=== PATIENT | male | born 1970 | race Caucasian/White ===

== ENCOUNTER → 2020-02-17 09:16 | Outpatient (CLI) | payer BC, SELFPAY ==
--- NOTE | 2020-02-17 09:30 | RAD_ITS ---
PROCEDURE: Fluoroscopic guided shoulder Injection DATE: February 17, 2020. INDICATION: Male, 49 years old. Chronic shoulder pain. PHYSICIAN: Alec Montez M.D. MEDICATIONS: 12 mg of betamethasone and 4 cc of 1% lidocaine. 2% Lidocaine administered subcutaneously for local anesthesia. ACCESS SITE: Right shoulder. NEEDLE: 22-gauge spinal needle. FLUOROSCOPY TIME (if supplied): (1:24) minutes/seconds FINDINGS: The risks, benefits, and alternatives to the procedure were explained to the patient. The specific risks of bleeding, infection, and neurovascular injury were detailed and accepted. Witnessed informed consent was obtained. A 22-gauge spinal needle was positioned under radiographic fluoroscopic localization. Approximately 2 cc of Isovue-300 instilled for localization purposes. Medication was then injected. The patient tolerated the procedure well without any immediate complications. The patient was placed supine with head elevated and returned to the floor in stable condition. RAD/Inj/Asp Weston Jt Should/Hip/Knee IMPRESSION: 1. Successful fluoroscopic guided right shoulder injection. Electronically Signed: Alec Montez, at 10:55 EDT , Service support ,
--- NOTE | 2020-02-17 09:30 | RAD_ITS ---
PROCEDURE: Fluoroscopic guided shoulder Injection DATE: February 17, 2020. INDICATION: Male, 49 years old. Chronic shoulder pain. PHYSICIAN: Alec Montez M.D. MEDICATIONS: 12 mg of betamethasone and 4 cc of 1% lidocaine. 2% lidocaine administered subcutaneously for local anesthesia. ACCESS SITE: Left shoulder. NEEDLE: 22-gauge spinal needle. FLUOROSCOPY TIME (if supplied): (0:53) minutes/seconds FINDINGS: The risks, benefits, and alternatives to the procedure were explained to the patient. The specific risks of bleeding, infection, and neurovascular injury were detailed and accepted. Witnessed informed consent was obtained. A 22-gauge spinal needle was positioned under radiographic fluoroscopic localization. Approximately 2 cc of Isovue-300 instilled for localization purposes. Medication was then injected. The patient tolerated the procedure well without any immediate complications. Incidental note is made of calcific tendinitis. RAD/Inj/Asp Weston Jt Should/Hip/Knee IMPRESSION: 1. Successful fluoroscopic guided left shoulder injection. Electronically Signed: Alec Montez, at 10:54 EDT , Service support ,
== END ==
PROVIDERS: Referring Provider Specialist; Visit Provider Specialist
DX: M19.011 Primary osteoarthritis, right shoulder (principal); M19.012 Primary osteoarthritis, left shoulder
CPT/HCPCS: 20610; 77002; Q9967; J0702

== ENCOUNTER 2020-10-19 09:30 | Outpatient (RCR) | payer OTHER, SELFPAY ==
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
--- NOTE | 2020-10-19 15:09 | HP.PTDCSUM ---
It has been my pleasure to treat BARBIE ROBERTSON referred by Dr. Asher Barger DO, with the diagnosis of ANA CRISTINA GLENOHUMERAL DJD for a total of 8 visit(s). Discharge Date: 10/19/20 Please see the following information for a summary of their discharge status. Subjective: PATIENT REPORTS HIS SHOULDERS ARE GETTING A LITTLE BIT BETTER. LESS PAIN AND BETTER FLEXABILITY. STATES HE WOULD LIKE TO CONTINUE AT HOME AT THIS POINT BECAUSE IT IS A LONG DRIVE HERE TO PT AND HE WILL CONTINUE ON HIS OWN. GETTING THE WORST PAIN AT NIGHT. R SHLD Pain Intensity (Out of 10): 0 L SHLD Pain Intensity (Out of 10): 0 % Improvement: 10 Objective/Function: PATIENT WAS SEEN TODAY FOR RE-ASSESSMENT OF PROGRESS TOWARD THE SET PT GOALS AND THE NEED FOR FURTHER PHYSICAL THERAPY VS READINESS FOR DISCHARGE. PATIENT IS INDEP WITH A HEP AND MAKING SLOW PROGRESS TOWARD ALL PT GOALS. 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 UPON EXAM TODAY: Motor deficit: 5/5 ANA CRISTINA ELBOW STRENGTH. ANA CRISTINA SHLD WEAKNESS: MMT: GROSSLY FLEX 4-/5, ABD 3+/5, ER 3+/5, IR 4/5. Sensory deficit: ANA CRISTINA UE LIGHT TOUCH SENSATION INTACT AND SYMMETRICAL. ROM deficit: R SHLD: FLEX 163 DEG, 168 DEG, ER 68 DEG, IR 38 DEG. L SHLD: FLEX 165 DEG, 175 DEG, ER 65 DEG, IR 43 DEG. (IR/ER MEASURED IN SUPINE WITH 70 DEG OF ABD IN BOTH ARMS). ANA CRISTINA ELBOW, FOREARM, WRIST AND HAND ROM WFL. PATIENT C/O SHLD PAIN ANA CRISTINA WITH SHLD ROM TESTING ALL PLANES AT THE END OF THE AVAILABLE RANGE R SHLD > LEFT. Dural Signs: NEGATIVE ANA CRISTINA UE'S. Postural strength: FAIR. Palpation: NO ACUTE NECK OR ANA CRISTINA SHLD TENDERNESS WITH PALPATION. Goal 1:: PATIENT WILL MAINTAIN PROPER POSTURE THROUGHOUT TREATMENT SESSIONS TO DEMONSTRATE IMPROVED SCAPULAR STABILIZATION Goal Progress: Progressing Goal 2:: PATIENT WILL BE INDEP WITH HEP AND PROGRESSION. Goal Progress: Progressing Goal 3:: PATIENT WILL REPORT ONLY WAKING UP ONCE DURING THE NIGHT DUE TO SHLD PAIN TO EASE ADL'S. Goal Progress: Progressing Plan: D/C TO INDEP HEP AT PATIENTS REQUEST. RECOMMENDED FOLLOW UP WITH DR. BARGER DUE TO ONGOING PAIN, WEAKNESS AND TIGHTNESS. If there are questions or concerns regarding this patient's physical therapy, please feel free to call me at [phone]. Thank you for the referral of this patient. Sincerely, Krystle Ansari PT, Cert MDT
== END 2020-10-19 19:00 | disposition home or self-care (01) ==
LOC: PT 09:30
PROVIDERS: Referring Provider Orthopaedic Surgery; Visit Provider Orthopaedic Surgery
DX: M19.011 Primary osteoarthritis, right shoulder (principal); M19.012 Primary osteoarthritis, left shoulder
CPT/HCPCS: 97014; 97110; 97140; 97162; 97164; 97530; G0283

== ENCOUNTER → 2022-03-14 | Outpatient (CLI) | payer OTHER, SELFPAY ==
--- NOTE | 2022-03-14 16:47 | CT_ITS ---
CT of the right shoulder without contrast INDICATION: Shoulder pain. TECHNIQUE: Multiple thin section axial CT images the right shoulder were obtained without the administration of intravenous contrast and filmed in soft tissue and bone windows. Furthermore, multiple sagittal and coronal reconstructions were performed. Dose limiting techniques were utilized. FINDINGS: No abnormal soft tissue mass, lymphadenopathy, fluid collection. No acute fracture or dislocation. No lytic or blastic lesions. The mild acromioclavicular joint arthrosis with capsulitis. Anterolateral downsloping acromion produces lateral outlet stenosis. Severe glenohumeral joint arthrosis with osteophyte formation and severe joint space narrowing. 4 cm oval collection of calcified bodies and fluid in the subscapular recess. CT/Extremity Upper without Contra IMPRESSION: Severe glenohumeral joint arthrosis per Electronically Signed: Naresh Real MD at 10:09 EDT ,
== END | disposition home or self-care (01) ==
LOC: CT 16:46
PROVIDERS: Referring Provider Specialist; Visit Provider Specialist
DX: M19.011 Primary osteoarthritis, right shoulder (principal); M25.511 Pain in right shoulder
CPT/HCPCS: 73200

== ENCOUNTER → 2022-04-18 | Outpatient (CLI) | payer OTHER, SELFPAY ==
[2022-04-18 09:37] LABS: ALB/GLOB Ratio 1.1 RATIO (0.9-2.4); AST(SGOT) 27 U/L (15-37); Alanine Aminotransfer ALT/SGPT 59 U/L (16-61); Albumin, Serum 3.9 g/dL (3.2-5.0); Alkaline Phosphatase 53 U/L (45-117); Anion Gap 4 (5-15); BUN 20 mg/dL (7-18); BUN/Creat Ratio 20.9 RATIO (10-20); Chloride 103 mmol/L (98-107); Cholesterol 242 mg/dL (200); Creatinine, Serum 0.96 mg/dL (0.70-1.30); EST Glomerular Filtration Rate 88 mL/min (>60); Est Glom Filt Rate - Afr Amer 107 mL/min (>60); Globulin 3.6 g/dL (2.2-4.2); Glucose 99 mg/dL (74-106); High Density Lipoprotein 48 mg/dL; Potassium 4.1 mmol/L (3.5-5.1); Protein, Total 7.5 g/dL (6.4-8.2); Sodium Level 138 mmol/L (136-145); Triglycerides 159 mg/dL; Very Low Density Lipoprotein 32 mg/dL (5-40)
== END | disposition home or self-care (01) ==
LOC: LAB 08:13
PROVIDERS: PCP Internal Medicine; Referring Provider Internal Medicine; Visit Provider Internal Medicine
DX: Z00.00 Encounter for general adult medical examination without abnormal findings (principal); E87.2 Acidosis; Z13.6 Encounter for screening for cardiovascular disorders
CPT/HCPCS: 36415; 80053; 80061

== ENCOUNTER → 2022-06-18 | Outpatient (CLI) | payer OTHER, SELFPAY ==
--- NOTE | 2022-06-18 15:08 | VDLE_ITS ---
Reason For Study: Pain RIGHT LEFT CFV is compressible, spontaneous, phasic, GSV is normal. competent and demonstrates normal CFV is compressible, spontaneous, phasic, augmentation. competent, and demonstrates normal Procedure augmentation. This is a venous duplex using B-mode, color FV is compressible, spontaneous, phasic, flow and spectral Doppler. competent and demonstrates normal Exam performed in department. augmentation. A preliminary report was called and/or faxed POP V is compressible, spontaneous, phasic, to PCP: Shefali MOONEY. competent and demonstrates normal augmentation. T/P Trunk is compressible. LT PerV is compressible. PTV is partially compressible with bright intraluminal echoes, blood flow noted. Acute deep vein thrombosis is noted in the left SoleusV. VL/Venous Duplex US, Unilateral Interpretation Summary Acute deep vein thrombosis is noted in the left soleus vein. Chronic deep vein thrombosis is noted in the left posterior tibial vein. Ordering Physician: Franck Pizano Referring Physician: Joana Yanes Performed By: Fanny Mireles RVT
== END | disposition home or self-care (01) ==
LOC: CVS 15:06
PROVIDERS: PCP Internal Medicine; Referring Provider Specialist; Visit Provider Specialist
DX: I82.462 Acute embolism and thrombosis of left calf muscular vein (principal); I82.542 Chronic embolism and thrombosis of left tibial vein
CPT/HCPCS: 93971

== ENCOUNTER → 2022-08-21 | Outpatient (CLI) | payer OTHER, SELFPAY ==
--- NOTE | 2022-08-21 08:01 | VDLE_ITS ---
Reason For Study: pain RIGHT LEFT CFV is compressible, spontaneous, phasic, GSV is normal. competent and demonstrates normal CFV is compressible, spontaneous, phasic, augmentation. competent, and demonstrates normal Procedure augmentation. This is a venous duplex using B-mode, color FV is compressible, spontaneous, phasic, flow and spectral Doppler. competent and demonstrates normal Exam performed in department. augmentation. The exam was diagnostic. POP V is compressible, spontaneous, phasic, competent and demonstrates normal augmentation. T/P Trunk is compressible. PTV is compressible. LT PerV is compressible. Soleus V is mostly compressible with bright intraluminal echoes. Improvement from previous study done 06/18/22. VL/Venous Duplex US, Unilateral Interpretation Summary Chronic deep vein thrombosis is noted in the left soleus vein. Improved from prior study Ordering Physician: Joana Yanes Performed By: Rigoberto Cooper RVT
== END | disposition home or self-care (01) ==
LOC: CVS 07:58
PROVIDERS: PCP Internal Medicine; Referring Provider Internal Medicine; Visit Provider Internal Medicine
DX: I82.402 Acute embolism and thrombosis of unspecified deep veins of left lower extremity (principal); R10.32 Left lower quadrant pain; M79.605 Pain in left leg
CPT/HCPCS: 93971

== ENCOUNTER → 2022-09-20 | Outpatient (CLI) | payer OTHER, SELFPAY ==
--- NOTE | 2022-09-20 11:30 | RAD_ITS ---
EXAM: XR LEFT HIP WITH PELVIS WHEN PERFORMED, 2 OR 3 VIEWS CLINICAL INDICATION: groin pain TECHNIQUE: Two or three views of the left hip with pelvis when performed. This report was created using [employer] report generation technology. COMPARISON: None. FINDINGS: BONES/JOINTS: No acute abnormality. SOFT TISSUES: Calcification along the left inguinal canal suggestive of vas deferens calcification. No soft tissue swelling or gas. RAD/HIP, UNI W/ Pelvis 2-3 Views IMPRESSION: No evidence of displaced pelvic or hip fracture. Electronically Signed: Asher Mckeon MD at 11:39 EST ,
== END | disposition home or self-care (01) ==
LOC: RAD 11:24
PROVIDERS: PCP Internal Medicine; Referring Provider Internal Medicine; Visit Provider Internal Medicine
DX: R10.32 Left lower quadrant pain (principal)
CPT/HCPCS: 73502; J7050; A4216

== ENCOUNTER → 2023-11-10 | Outpatient (CLI) | payer OTHER, SELFPAY | END | disposition home or self-care (01) | PROVIDERS: PCP Internal Medicine; Referring Provider Internal Medicine; Visit Provider Internal Medicine | DX: Z00.00 Encounter for general adult medical examination without abnormal findings (principal) ==

== ENCOUNTER → 2023-11-10 | Outpatient (CLI) | payer OTHER, SELFPAY ==
--- NOTE | 2023-11-10 15:05 | RAD_ITS ---
STUDY: X-RAY CHEST REASON FOR EXAM: Male, 53 years old. chest congestion TECHNIQUE: PA and lateral views of the chest. COMPARISON: 01/15/2016 FINDINGS: The lungs are clear and expanded. There is no demonstrated pleural abnormality. Normal size heart. Normal mediastinum and leilani. Normal visualized pulmonary arteries. Normal visualized aortic arch and descending thoracic aorta. Normal visualized thoracic spine. Status post right shoulder hemiarthroplasty. There is no demonstrated abnormality of the visualized soft tissue structures of the upper abdomen. RAD/Chest PA and Lateral IMPRESSION: Normal x-ray examination of the chest. Electronically Signed: Naresh Real MD at 22:24 EDT ,
== END | disposition home or self-care (01) ==
LOC: RAD 15:03
PROVIDERS: PCP Internal Medicine; Referring Provider Internal Medicine; Visit Provider Internal Medicine
DX: R09.89 Other specified symptoms and signs involving the circulatory and respiratory systems (principal)
CPT/HCPCS: 71046

== ENCOUNTER → 2024-02-03 | Outpatient (CLI) | payer OTHER, SELFPAY ==
--- NOTE | 2024-02-03 16:40 | MRI_ITS ---
STUDY: MRI LUMBAR SPINE WITHOUT CONTRAST REASON FOR EXAM: Male, 53 years old. SPINAL STENOSIS. Additional history-popping, pain down rt leg shooting to rt knee and foot, nki or surgery TECHNIQUE: Standardized fat and water weighted pulse sequences were obtained in the sagittal and axial planes. Noncontrast images obtained. Contrast: No contrast administered COMPARISON: None FINDINGS: LIMITATIONS: Motion artifact. Vertebral bodies and alignment. 1. Vertebral body height and alignment are maintained. No evidence of marrow edema or occult fracture. No evidence of focal canal stenosis. 2. Paraspinous soft tissue planes have normal appearance. Normal appearance of the muscular fascial planes of the erector spinae. 3. Normal appearance of the sacrum and sacroiliac joints. Intervertebral disks levels. T12-L1: Normal endplates. Normal disc height, hydration and morphology. Normal bilateral facet joints. Normal central canal and bilateral lateral recesses. Normal bilateral intervertebral neural foramina. Endplate: No focal endplate marrow changes or endplate deformity. L1-2: Normal endplates. Normal disc height, hydration and morphology. Normal bilateral facet joints. Normal central canal and bilateral lateral recesses. Normal bilateral intervertebral neural foramina. Endplate: No focal endplate marrow changes or endplate deformity. L2-3: Mild disc desiccation, no disc herniation canal or foraminal stenosis. Mild facet hypertrophic changes. Endplate: No focal endplate marrow changes or endplate deformity. L3-4: Disc desiccation, broad-based posterior disc bulge, no evidence of canal stenosis. There is mild narrowing of neural foramina without nerve root impingement. RIGHT foraminal bulge is present. Endplate: No focal endplate marrow changes or endplate deformity. L4-5: No disc herniation or canal stenosis. Facet and ligament flavum hypertrophic changes. No evidence of canal or foraminal stenosis. Endplate: No focal endplate marrow changes or endplate deformity. L5-S1: Disc desiccation, broad-based posterior disc bulge, there is a RIGHT posterior lateral annular tear with mild narrowing of the RIGHT neural foramen. No erlinda nerve root impingement.. No evidence of canal stenosis. Facet and ligament flavum hypertrophic changes are present. Endplate: Contour deformity of the inferior endplate of L5, no evidence however of marrow edema or Modic changes. Spinal cord: Normal appearance of the spinal cord and conus. Conus is located at L1. Cauda equina has normal appearance. No evidence of cord compression or edema. No intramedullary signal abnormality noted. Paraspinous soft tissues: Normal visualized paraspinous soft tissue structures. MRI/Spine Lumbar (Routine) IMPRESSION: 1. Moderate multilevel lumbar spondylosis. Disc bulges and osteophyte complexes are present. 2. No acute disc herniation canal stenosis or cord compression. 3. Mild foraminal narrowing at L3-4 contributed by facet and ligamentum flavum hypertrophic changes as well as a RIGHT foraminal disc bulge without erlinda nerve root impingement. 4. RIGHT posterior lateral annular tear at L5-S1 with mild narrowing of the RIGHT neural foramen without erlinda nerve root impingement. 5. Normal appearance of visualized spinal cord. Electronically Signed: Naresh Naranjo MD at 23:26 EDT ,
== END | disposition home or self-care (01) ==
PROVIDERS: PCP Internal Medicine; Referring Provider Orthopaedic Surgery; Visit Provider Orthopaedic Surgery
DX: M48.061 Spinal stenosis, lumbar region without neurogenic claudication (principal); M54.16 Radiculopathy, lumbar region; M51.36 Other intervertebral disc degeneration, lumbar region
CPT/HCPCS: 72148

== ENCOUNTER → 2024-02-24 | Outpatient (CLI) | payer OTHER, SELFPAY ==
[2024-02-24 17:03] LABS: Absolute Lymphocyte Count 2.38 X10^3/uL (0.83-4.51); Absolute Neutrophil Count 5.3 X10^3/uL (2.0-7.7); Basophil# 0.05 X10^3/uL; Basophil% 0.6 % (0-1); Eosinophils% 2.2 % (0-5); Hematocrit 43.5 % (40-54); Hemoglobin 14.9 g/dL (13.0-16.5); Lymphocyte # 2.38 X10^3/ul (0.83-4.51); Lymphocyte % 26.5 % (19-41); Mean Corp Hgb Conc 34.3 g/dL (32-36); Mean Corpuscular Hgb 31.7 pg (27.0-32.0); Mean Corpuscular Volume 92.6 fL (80-94); Mean Platelet Vol. 9.2 fl (6.2-12.0); Monocyte% 11.1 % (0-10); NRBC Flagged by Analyzer 0 % (0-5); Neutrophil % 58.9 % (47-70); Platelet Count 318 K/mm3 (150-450); RBC Distribution Width CV 12.3 % (11.6-14.6); RBC Distribution Width SD 42.3 fl (35.1-43.9)
[2024-02-24 17:35] LABS: ALB/GLOB Ratio 1.1 RATIO (0.9-2.4); AST(SGOT) 24 U/L (15-37); Alanine Aminotransfer ALT/SGPT 40 U/L (16-61); Albumin, Serum 3.8 g/dL (3.2-5.0); Alkaline Phosphatase 56 U/L (45-117); Anion Gap 7 (5-15); BUN 15 mg/dL (7-18); BUN/Creat Ratio 13.9 RATIO (10-20); Calcium,Total 8.9 mg/dL (8.5-10.1); Chloride 105 mmol/L (98-107); Cholesterol 235 mg/dL (200); Creatinine, Serum 1.08 mg/dL (0.70-1.30); EST Glomerular Filtration Rate 76 mL/min (>60); Est Glom Filt Rate - Afr Amer 92 mL/min (>60); Globulin 3.6 g/dL (2.2-4.2); Glucose 88 mg/dL (74-106); High Density Lipoprotein 47 mg/dL; PSA,Total - Annual Screen 0.56 ng/mL (0.00-4.00); Potassium 3.8 mmol/L (3.5-5.1); Protein, Total 7.4 g/dL (6.4-8.2); Sodium Level 138 mmol/L (136-145); Triglycerides 219 mg/dL; Very Low Density Lipoprotein 44 mg/dL (5-40)
== END | disposition home or self-care (01) ==
LOC: LAB 16:02
PROVIDERS: PCP Internal Medicine; Referring Provider Specialist; Visit Provider Specialist
DX: R10.31 Right lower quadrant pain (principal); R10.32 Left lower quadrant pain; E78.2 Mixed hyperlipidemia
CPT/HCPCS: 36415; 80053; 80061; 84153; 85025; G0103

== ENCOUNTER → 2024-03-28 | Outpatient (CLI) | payer OTHER, SELFPAY ==
--- NOTE | 2024-03-28 12:33 | MRI_ITS ---
STUDY: MRI ARTHROGRAM OF THE RIGHT HIP REASON FOR EXAM: Male, 53 years old. Right hip pain for approximately 2 years without injury. TECHNIQUE: 10 mL of dilute Clariscan contrast was injected into the right hip joint. MRI was obtained in all 3 orthogonal planes. COMPARISON: Pelvis and left hip radiographs dated 09/20/2022. FINDINGS: There is a suspected small tear of the right anterior acetabular labrum (sagittal T2 series 6 image 10). There is also a tear of the right superior acetabular labrum, with an adjacent 7 mm paralabral cyst (coronal T2 series 4 images 10-13). There is degenerative arthrosis of the right hip joint with marginal osteophyte formation, chondral thinning, and subchondral marrow edema in the acetabulum. Intact femoral head, femoral neck and intratrochanteric region. There is no demonstrated fracture. Normal gluteus minimus, medius and iliopsoas tendons and distal insertions. There is no trochanteric, iliopsoas or iliopectineal bursitis. Normal superior and inferior pubic rami. Normal pubic symphysis. Normal ischial tuberosity. Normal origin of the hamstring tendons. Normal visualized iliac wing, sacroiliac joint, and sacral ala. Normal visualized soft tissue structures of the pelvis. MRI/Lower Ext/Jt Only/W Contrast IMPRESSION: Suspected small tear of the right anterior acetabular labrum. Tear of the right superior acetabular labrum, with an adjacent 7 mm paralabral cyst. Degenerative arthrosis of the right hip joint. Electronically Signed: Kin Jaramillo MD at 16:08 EDT ,
[2024-03-28] MEDS: Lidocaine 2% (5ml sdv) 5 ML VIAL.MPF INFILT (13:00)
[2024-03-28] MEDS: Gadoterate Meglumine Diluted 10 ML, Iopamidol 5 ML, Lidocaine 1% (20 ml mdv) 5 ML, Epin... INTRAARTIC (13:05)
[2024-03-28] MEDS: Iopamidol 10 ML in Syringe 1 EACH 600 ML INTRAARTIC (13:05)
--- NOTE | 2024-03-28 13:28 | PRO.PCM_ITS ---
Procedure Report Date of Procedure: 03/28/24 Assessment & Plan Assessment/Plan (1) Right hip pain: PLAN: PROCEDURE: Arthrogram-right hip ORDERING PROVIDER: Dr. Franck Pizano INDICATION: Male, 53 years old. Right hip pain. FLUOROSCOPY TIME (if supplied): 0 minutes/31 seconds. 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 Informed consent was obtained. TECHNIQUE: The patient was positioned supine. The overlying skin was prepped and draped in the usual sterile fashion. Following injection of local anesthetic with 2% lidocaine and under direct fluoroscopic guidance, a 22-gauge spinal needle was placed into the right hip joint. 2 cc of Isovue 300 was injected for confirmation. Following this, 10 cc of arthrogram contrast (gadoterate, iopamidol, lidocaine, and epinephrine), compounded by pharmacy, was injected. All elements of maximal sterile barrier technique followed. Patient tolerated procedure well. IMPRESSION: Successful fluoroscopic guided right hip arthrogram. Procedures Radiology Radiology Xray Procedures: 40481 Arthrogram Hip Multi Select Codes Radiology Rad Xray Procedures: 90278-04 Fluoroscopic guidance for needle placement
== END | disposition home or self-care (01) ==
LOC: RAD 12:23
PROVIDERS: PCP Internal Medicine; Referring Provider Specialist; Visit Provider Specialist
DX: M25.551 Pain in right hip (principal); M24.851 Other specific joint derangements of right hip, not elsewhere classified
CPT/HCPCS: 20610; 27093; 73722; 77002; Q9967

== ENCOUNTER 2024-04-03 15:52 | Emergency (ER) | payer OTHER, SELFPAY ==
[2024-04-03 15:53] VITALS: BP 130/93; PULSE 90; RESP 16; TEMP 36.6; O2SAT 99
--- NOTE | 2024-04-03 16:44 | EX.ED.DYSGE1 ---
HPI History of Present Illness Chief Complaint: Lower Extremity Injury Detail of Chief Complaint: Right hip pain status post MRI arthrogram performed March 28. Informant: patient Onset/Context/Timing Onset: Days Context: Sudden Onset Timing: Continuous Quality: Pain Location: Right inguinal area radiating through the buttocks Current Severity: Mild Maximum Severity: Severe Worsened by: Certain movements and weightbearing Relieved by: Nothing Associated Symptoms Associated Symptoms: Night sweats Narrative Narrative: Patient is a 53-year-old male who apparently had an injury August 2022. He underwent MRI arthrogram March 28. He was told that the pain may be persistent and pressure sensation 24 to 48 hours. The pain is increased. He has had night sweats the past several days. He states he contacted Dr. Pizano's office and was told NSAIDs and Benadryl on . Since the pain has gotten worse and he has pain with movement and weightbearing he presents to the emergency room for evaluation. He denies documented fever. He is on a blood pressure medicine. Review of prior records indicates that he apparently is on losartan and atorvastatin. Patient denies paresthesia, anesthesia motor weakness of his right lower extremity. Prior similar symptoms: No Recent Illness/Hospitalization: No PFSH PFSH Medical History COVID Hypertension History of blood clots Home Medications ?Medication ?Instructions ?Recorded ?Last Taken ?Type atorvastatin 10 mg tablet (Lipitor) 10 mg PO QHS #30 tabs 03/03/24 Unknown Rx losartan 25 mg tablet 25 mg PO DAILY #30 tabs 03/03/24 Unknown Rx ketorolac 10 mg tablet 10 mg PO Q6H #12 tabs 04/03/24 Unknown Rx Allergy/AdvReac Type Severity Reaction Status Date / Time No Known Allergies Allergy Verified 04/03/24 15:54 Family History Mother Cancer bladder with mets Grandfather Cancer Grandfather Cancer Surgical History History of right shoulder replacement H/O hernia repair H/O: knee surgery Social History household members: spouse and children number of children: 2 current occupational status: employed current occupation: [employer] Smoking Status: Never smoker Electronic Cigarette Use: not used alcohol intake: current alcohol intake frequency: a few times a week Alcohol type: beer substance use type: does not use what type of physical activity do you participate in: walking frequency: daily do you feel safe at home: Yes ROS ROS ED Constitutional Constitutional ED: Reports sweats; Denies chills, fever(s), subjective or weight loss Musculoskeletal Musculoskeletal: Reports other Details: Right hip pain that he localizes to the right inguinal region. Patient reports difficulty ambulating. ; Denies arthralgias, back pain, myalgias or neck pain Integumentary Denies abscess, Abrasions or rash Neurologic Neurologic: Denies paresthesias or weakness Hematologic/Lymphatic Hematologic/Lymphatic: Reports systems reviewed and no addt'l complaints, except as documented EXAM Physical Exam Const Vital Signs: 04/03/24 15:53 04/03/24 17:52 Temperature 98 F Temperature Source Temporal Pulse Rate 90 86 Respiratory Rate 16 16 Blood Pressure 130/93 H 131/76 H Blood Pressure Mean 105 94 Pulse Ox 99 98 Oxygen Delivery Method Room Air Room Air Positive well nourished and well developed General Appearance ED: well developed; Negative for cyanotic, diaphoretic, NAD or pallor HEENT HEENT Narrative: Head is atraumatic no cephalic. Ears normal. Nares patent. Eyes PERRL and EOMs intact bilaterally General Eye ED: Negative for pale conjunctiva or scleral icterus Neck no lymphadenopathy, supple and no JVD Resp normal respiratory effort Cardio regular rate and regular rhythm Narrative: There is no inguinal lymphadenopathy. He has tenderness in the left inguinal area. Logrolling causes him significant discomfort. Back/Spine Thoracic Spine / Upper Back: Negative for thoracic spinal tenderness Lumbar Spine / Lower Back: Negative for lumbar spinal tenderness Extremity normal to inspection Extremity Narrative: DP and PT pulse are palpable. Janee Marcy 4 test causes a marked discomfort and unable to complete the maneuver. General Extremety ED: Negative for edema or tenderness General Extremity: Negative for edema Neuro oriented x3 and CN's II-XII intact bilaterally Sensorium / Orientation: alert Motor Exam: strength 5/5 throughout Skin no rashes or lesions noted, no wounds and skin turgor normal General Skin Exam: elasticity normal; Negative for jaundice or pallor MDM MDM MDM Narrative Medical decision making narrative: Parental diagnosis is inflammatory process due to the arthrogram versus infection. Blood work was ordered which included CBC, BMP, ESR and CRP. Contacted Dr. Jeter on-call for Dr. Pizano regarding imaging. His recommendation was no imaging at this time. He suggested call back after laboratory studies are back to discuss case. Patient was medicated with morphine, ketorolac and Zofran. Arthrogram report was reviewed. Patient has a suspected small tear of the right anterior acetabular labrum. There appears to be a tear of the right superior acetabular labrum with the adjacent 7 mm paralabral cyst. There is also some minimal arthritic changes noted. History & Record Review Additional record(s) reviewed:: Prior outpatient record and Prior labs Lab Data Attestation: I reviewed the patient's lab results. Lab results narrative: White count is 9.2 thousand with no shift. Basic metabolic panel is normal. ESR is normal. C-reactive protein is elevated at 9.18. Dr. Jeter was made aware of the laboratory test. Since patient has marked improvement with no fever and normal white count and only an elevated C-reactive protein plan is discharged with prescription for ketorolac. He is to call the office. He informed that he has an appointment on Thursday. If he continues to have pain he should call the office to move up his appointment. Dr. Jeter will make Dr. Pizano aware. Labs: Laboratory Results - last 24 hr 04/03/24 17:00 WBC 9.2 RBC 4.65 Hgb 14.5 Hct 43.6 MCV 93.8 MCH 31.2 MCHC 33.3 RDW Std Deviation 42.6 RDW Coeff of Suzi 12.3 Plt Count 315 MPV 9.0 Immature Gran % (Auto) 0.400 Neut % (Auto) 63.3 Lymph % (Auto) 22.7 [place] % (Auto) 10.7 H Eos % (Auto) 2.2 Baso % (Auto) 0.7 Absolute Neuts (auto) 5.8 Absolute Lymphs (auto) 2.08 Nucleated RBC % 0 ESR 8 Sodium 138 Potassium 3.9 Chloride 109 H Carbon Dioxide 24.0 Anion Gap 5 BUN 20 H Creatinine 0.84 Estim Creat Clear Calc 6.60 Est GFR (MDRD) Af Amer 124 Est GFR (MDRD) Non-Af 102 BUN/Creatinine Ratio 23.9 H Glucose 99 Calcium 8.6 C-React Prot Ext Range 9.18 H Treatment and Re-Evaluation :: Dr. Jeter believes that patient has inflammation from the arthrogram/synovitis. Discharge Plan Triage Chief Complaint: Lower Extremity Injury ED Provider: Terrance Vazquez Dx/Rx/DC Orders Clinical Impression: Synovitis of right hip, Labral tear of right hip joint, Hypertension Prescriptions: New ketorolac 10 mg tablet 10 mg PO Q6H Qty: 12 0RF Rx Instructions: maximum total duration of 5 days from all oral, intranasal, or parenteral formulations No Action atorvastatin [Lipitor] 10 mg tablet 10 mg PO QHS Qty: 30 2RF losartan 25 mg tablet 25 mg PO DAILY Qty: 30 2RF Primary Care Provider: Joana Yanes Referrals: Joana Yanes MD [Primary Care Provider] - Franck Pizano MD [Med Staff - Active Staff] - Keep Maryana appointment Activity Restrictions/Additional Instructions: 1. If you develop a temperature greater than 100 return to the emergency room. 2. If your pain worsens contact Dr. Pizano Print Language: [place] Disposition Disposition: Home, Self Care
[2024-04-03] MEDS: Ondansetron 4 MG/2 ML Vial IV (16:54)
[2024-04-03] MEDS: Ketorolac 15 MG/ML Vial IV (16:54)
[2024-04-03] MEDS: Morphine 4 MG/ML Syringe IV (16:55)
[2024-04-03 17:13] LABS: Absolute Lymphocyte Count 2.08 X10^3/uL (0.83-4.51); Absolute Neutrophil Count 5.8 X10^3/uL (2.0-7.7); Basophil# 0.06 X10^3/uL; Basophil% 0.7 % (0-1); Eosinophils% 2.2 % (0-5); Hematocrit 43.6 % (40-54); Hemoglobin 14.5 g/dL (13.0-16.5); Lymphocyte # 2.08 X10^3/ul (0.83-4.51); Lymphocyte % 22.7 % (19-41); Mean Corp Hgb Conc 33.3 g/dL (32-36); Mean Corpuscular Hgb 31.2 pg (27.0-32.0); Mean Corpuscular Volume 93.8 fL (80-94); Monocyte# 0.98 X10^3/uL; Monocyte% 10.7 % (0-10); NRBC Flagged by Analyzer 0 % (0-5); Neutrophil # 5.82 X10^3/uL (2.7-7.7); Neutrophil % 63.3 % (47-70); Platelet Count 315 K/mm3 (150-450); RBC Distribution Width CV 12.3 % (11.6-14.6); RBC Distribution Width SD 42.6 fl (35.1-43.9); Red Blood Count 4.65 M/mm3 (4.6-6.2); White Blood Count 9.2 K/mm3 (4.4-11.0)
[2024-04-03 17:24] LABS: Anion Gap 5 (5-15); BUN 20 mg/dL (7-18); BUN/Creat Ratio 23.9 RATIO (10-20); CRP 9.18 mg/L (0.0-3.0); Calcium,Total 8.6 mg/dL (8.5-10.1); Chloride 109 mmol/L (98-107); Creatinine, Serum 0.84 mg/dL (0.70-1.30); EST Glomerular Filtration Rate 102 mL/min (>60); Est Glom Filt Rate - Afr Amer 124 mL/min (>60); Glucose 99 mg/dL (74-106); Potassium 3.9 mmol/L (3.5-5.1); Sodium Level 138 mmol/L (136-145)
[2024-04-03 17:25] LABS: Erythrocyte Sedimentation Rate 8 mm/hr (0-20)
[2024-04-03 17:52] VITALS: BP 131/76; PULSE 86; RESP 16; O2SAT 98
[2024-04-03 18:42] VITALS: BP 137/82; PULSE 81; RESP 16; TEMP 36.6; O2SAT 99
== END 2024-04-03 18:43 | disposition home or self-care (01) ==
PROVIDERS: Emergency Provider Emergency Medicine; PCP Internal Medicine; Visit Provider Emergency Medicine
DX: S73.191A Other sprain of right hip, initial encounter (principal); M65.88 Other synovitis and tenosynovitis, other site; X58.XXXA Exposure to other specified factors, initial encounter; I10 Essential (primary) hypertension; Z79.899 Other long term (current) drug therapy
CPT/HCPCS: 80048; 85025; 85652; 86140; 96374; 96375; 99283; A4216; J2405

== ENCOUNTER → 2024-04-05 | Outpatient (CLI) | payer OTHER, SELFPAY ==
[2024-04-05 16:10] LABS: Erythrocyte Sedimentation Rate 9 mm/hr (0-20)
[2024-04-05 16:23] LABS: Absolute Lymphocyte Count 2.17 X10^3/uL (0.83-4.51); Absolute Neutrophil Count 6.3 X10^3/uL (2.0-7.7); Basophil# 0.06 X10^3/uL; Basophil% 0.6 % (0-1); Eosinophil# 0.19 X10^3/uL; Eosinophils% 1.9 % (0-5); Hematocrit 42.2 % (40-54); Hemoglobin 14.3 g/dL (13.0-16.5); Lymphocyte # 2.17 X10^3/ul (0.83-4.51); Lymphocyte % 22.2 % (19-41); Mean Corp Hgb Conc 33.9 g/dL (32-36); Mean Corpuscular Hgb 31.8 pg (27.0-32.0); Mean Platelet Vol. 9.5 fl (6.2-12.0); Monocyte# 0.99 X10^3/uL; Monocyte% 10.1 % (0-10); NRBC Flagged by Analyzer 0 % (0-5); Neutrophil # 6.32 X10^3/uL (2.7-7.7); Neutrophil % 64.7 % (47-70); Platelet Count 329 K/mm3 (150-450); RBC Distribution Width CV 12.3 % (11.6-14.6); RBC Distribution Width SD 42.7 fl (35.1-43.9); Red Blood Count 4.49 M/mm3 (4.6-6.2); White Blood Count 9.8 K/mm3 (4.4-11.0)
== END | disposition home or self-care (01) ==
LOC: LAB 14:46
PROVIDERS: PCP Internal Medicine; Referring Provider Student in an Organized Health Care Education/Training Program; Visit Provider Student in an Organized Health Care Education/Training Program
DX: M24.851 Other specific joint derangements of right hip, not elsewhere classified (principal)
CPT/HCPCS: 36415; 85025; 85652; 86140

== ENCOUNTER → 2024-05-06 | Outpatient (CLI) | payer OTHER, SELFPAY ==
[2024-05-06] MEDS: Lidocaine 2% (5ml sdv) 5 ML VIAL.MPF INFILT (13:12)
[2024-05-06] MEDS: Betamethasone/Betamethasone 30 MG/5 ML Vial 12 MG INTRAARTIC (13:15)
[2024-05-06] MEDS: Lidocaine 1% (5 ml sdv) 5 ML Vial 4 ML OPERA.SITE (13:15)
--- NOTE | 2024-05-06 13:51 | PCM.OP.PRO ---
Procedure Report Date of Procedure: 05/06/24 Assessment & Plan Assessment/Plan (1) Left shoulder pain: QUALIFIERS: Chronicity: chronic Qualified Code(s): M25.512 - Pain in left shoulder; G89.29 - Other chronic pain PLAN: PROCEDURE: Fluoroscopic Guided left shoulder injection ORDERING PROVIDER: Dr. Franck Pizano INDICATION: Male, 54 years old. Left shoulder pain. PROVIDER: ANGELIC Green FLUOROSCOPY TIME (if supplied): 0 minutes/10 seconds. 2.8 mGy CONSENT: The risks, benefits, and alternatives to the procedure were explained to the patient. The specific risks of bleeding, infection, and neurovascular injury were detailed and accepted. Witnessed informed consent was obtained. TECHNIQUE: The left glenohumeral space access site was prepped with chlorhexidine and draped in sterile fashion. 2% Lidocaine was administered subcutaneously for local anesthesia. A 22-gauge spinal needle was positioned under radiographic fluoroscopic localization. Approximately 2 cc of Isovue 300 instilled for localization purposes. Medication was then injected. MEDICATIONS: 12 mg of betamethasone and 4 ml of 1% lidocaine. The spinal needle was removed, and a dressing was applied. The patient tolerated the procedure well without any immediate complications. IMPRESSION: Successful fluoroscopic guided left shoulder injection. Procedures Radiology Radiology Xray Procedures: [id number] Inj Asp major Joint - Hip, Knee Multi Select Codes Radiology Rad Xray Procedures: [id number] Fluoroscopic guidance for needle placement
== END | disposition home or self-care (01) ==
PROVIDERS: PCP Internal Medicine; Referring Provider Specialist; Visit Provider Specialist
DX: M25.512 Pain in left shoulder (principal)
CPT/HCPCS: 20610; 77002; Q9967; J0702

== ENCOUNTER 2024-08-08 08:53 | Observation (INO) | payer OTHER, SELFPAY ==
--- NOTE | 2024-07-12 08:31 | EKG12_ITS ---
Test Reason : PREOP Blood Pressure : */* mmHG Vent. Rate : 68 BPM Atrial Rate : 68 BPM P-R Int : 172 ms QRS Dur : 94 ms QT Int : 366 ms P-R-T Axes : 32 3 29 degrees QTcB Int : 389 ms Normal sinus rhythm Normal ECG When compared with ECG of 18-Aug-2012 14:53, No significant change was found Confirmed by JEANINE ROJAS, EDEN ([id number]), pictures editor KHANH FLOOD ([id number]) on 07/12/2024 11:14:35 AM Referred By: Franck Pizano Confirmed By: EDEN SOLORZANO MD
[2024-07-12 09:57] LABS: Absolute Lymphocyte Count 1.76 X10^3/uL (0.83-4.51); Absolute Neutrophil Count 3.3 X10^3/uL (2.0-7.7); Basophil# 0.05 X10^3/uL; Basophil% 0.8 % (0-1); Eosinophil# 0.14 X10^3/uL; Eosinophils% 2.3 % (0-5); Hematocrit 45.5 % (40-54); Hemoglobin 15.2 g/dL (13.0-16.5); Lymphocyte # 1.76 X10^3/ul (0.83-4.51); Lymphocyte % 29.1 % (19-41); Mean Corp Hgb Conc 33.4 g/dL (32-36); Mean Corpuscular Hgb 31.2 pg (27.0-32.0); Mean Corpuscular Volume 93.4 fL (80-94); Mean Platelet Vol. 9.2 fl (6.2-12.0); Monocyte# 0.74 X10^3/uL; Monocyte% 12.2 % (0-10); NRBC Flagged by Analyzer 0 % (0-5); Neutrophil # 3.33 X10^3/uL (2.7-7.7); Neutrophil % 55.1 % (47-70); Platelet Count 305 K/mm3 (150-450); RBC Distribution Width CV 12.3 % (11.6-14.6); RBC Distribution Width SD 42.8 fl (35.1-43.9); Red Blood Count 4.87 M/mm3 (4.6-6.2); White Blood Count 6.1 K/mm3 (4.4-11.0)
[2024-07-12 11:07] LABS: Albumin, Serum 3.9 g/dL (3.2-5.0); Anion Gap 8 (5-15); BUN 17 mg/dL (7-18); BUN/Creat Ratio 17.8 RATIO (10-20); Calcium,Total 9.7 mg/dL (8.5-10.1); Chloride 106 mmol/L (98-107); Creatinine, Serum 0.95 mg/dL (0.70-1.30); EST Glomerular Filtration Rate 88 mL/min (>60); Est Glom Filt Rate - Afr Amer 106 mL/min (>60); Glucose 110 mg/dL (74-106); Potassium 4.3 mmol/L (3.5-5.1); Sodium Level 138 mmol/L (136-145)
[2024-07-12 11:11] LABS: Magnesium 2.4 mg/dL (1.6-2.6)
--- NOTE | 2024-07-29 13:08 | HP.PCM_ITS ---
History and Physical History and Physical Patient Name: Floyd Caputo : 1970From:? PORTIA HOOK PA-C DATE OF PRE-OPERATIVE EXAM: 07/29/2024 DATE OF SURGERY:? 08/08/2024 SCHEDULED PROCEDURE:? Direct anterior right total hip arthroplasty HISTORY OF PRESENT ILLNESS: Preoperative history and physical exam was performed on July 29, 2024.? This is a 54-year-old male who has had ongoing pain for a proximally 2 years with his right hip.? Pain has been sharp.? He has had right hip intra-articular corticosteroid injection on April 21, 2024.? That has been helpful.? Prior to that he had very difficult time walking.? Patient will get sharp pain with any twisting type motion of the hip.? Pain is increased with going up and down stairs, driving, sitting, and walking.? Activities of daily living have been affected including bathing, getting dressed putting on socks and shoes, and housework.? Patient has tried ice, heat and elevation with no relief.? He has tried oral medications including Tylenol and tramadol.? Denies past history of surgery on the right hip.? Patient has difficulty getting in and out of the truck and car's.? He has had previous MRI that shows degenerative arthrosis with labral tearing.? After failing conservative measures and discussing treatment options was Dr. Franck Pizano, the patient does wish to proceed with a direct anterior right total hip arthroplasty.? Patient has obtain surgical clearance from primary care provider Dr. Yanes.? Patient has medical history pertinent for hypertension, hyperlipidemia, chronic low back pain, history of DVT left lower leg when he was 38 years old, and dysphagia.? There is no recent chest pain, shortness of breath, fevers chills or recent infections. REVIEW OF SYSTEMS: Review Of Systems: Constitutional: Reports difficulty sleeping, but denies anorexia, anxiety, change in appetite, fever and weight change. Cardiovasular: Denies chest pain, heart murmur, irregular heartbeat and peripheral vascular disease. Respiratory: Denies asthma, cough, pneumonia, sleep apnea, shortness of breath, tuberculosis and wheezing. Gastrointestinal: Denies constipation, diarrhea, heartburn, nausea, rectal itching and vomiting. Genitourinary: Denies incontinence. Musculoskeletal: Reports pain and weakness, but denies leg swelling and trouble walking. Skin: Denies Raynaud's, history of shingles and tattoo. Neurological: Denies ambulatory dysfunction, dizziness, numbness/tingling and tremor. Psychiatric: Denies anxiety, depression, insomnia, mental illness and stress. Hematologic/Lymphatic: Denies anemia, bleeding/bruising tendency and past transfusion. Reviewed and updated. PAST MEDICAL HISTORY: Advance Care Plan: No Advance Directives Effective Date: 02/13/2020 Past Medical History: Medical Problems: High Blood Pressure History of DVT left leg - (age 38 Years) mixed hyperlipidemia, low back pain, Dysphagia Accidents: Fracture - LT KNEE, RT HAND Other - (2022) LT GROIN STRAIN Surgical Hx: LT Knee - (1982) FRACTURE REPAIR 3 Hernia Repairs Right Total Shoulder Replacement W/ Left Shoulder Injection - (05/09/2022) DR. PIZANO @ [facility] Caudal Epidural Steroid Injection - (02/16/2024) Dr Saida Hayden @ [facility] Right Hip Injection Under Fluoro - (04/21/2024) DR. PIZANO AT [facility] Anesthesia Complications: None Assistive Devices: None Reviewed and updated. SOCIAL HISTORY: Social History: Marital: .Occupation: [employer].Work Status: Currently Working.Hand Dominance: Right-Handed. Personal Habits:? Cigarette Use: Never Smoked Cigarettes.Smokeless Tobacco: Former user.E-Cigarette Use: Never used.Alcohol: Weekly use.Drug Use: Denies Use.Enjoy Exercising: Exercises 1-3 x/month. Reviewed and updated. VITALS: Ht: 71 Wt: 258lb Wt k.029 BMI: 36.0 BP: 130/78 Pulse: 85 Resp: 17 T: 97.8 T: 36.6C Pain Level: 0 O2SatR: 98 ALLERGIES: No Known Drug Allergy No Known Substance Allergies MEDICATIONS: Mupirocin 2 % use qtip and apply inside each nostril twice a day until the day of surgery, Vitamin D3 10 mcg (400 Unit) 1po qday, Tylenol Extra Strength 500 mg 2 by mouth every 8 hours, qhs, Vitamin B-6? 1po qday, Fish Oil-Flax Oil-Borage Oil? 1po qday, Vitamin C? 1po qday, Vitamin E? 1po qday, Losartan Potassium 25 mg one time daily, Multi Vitamin? one time daily PRE-OP EXAM: General appearance:NORMAL? Other: Eyes: Conjunctivae and lids: NORMAL? Pupils: ERR Ears, Nose, Mouth, and Throat: NORMAL? Other: Inspection of lips, teeth and gums: NORMAL?? Other: Neck: Examination of neck: no masses noted. Respiratory: Assessment of respiratory effort: NORMAL?? Other: ? Auscultation of lungs: clear to auscultation no wheezes, rhonchi or rales. Cardiovascular:? Auscultation of heart: regular rate and rhythm, no murmurs, gallops or rubs. PHYSICAL EXAMINATION: On exam patient does walk with a mild antalgic gait.? The right hip has tenderness to palpation over the lateral hip.? He complains of groin pain with range of motion.? 100 hip flexion, internal rotation 5, external rotation 15.? Sensation intact to light touch. IMAGING STUDIES: Previous x-rays and MRI shows degenerative arthrosis of the right hip with labral tear IMPRESSION: 1.? Right hip osteoarthritis with labral tear 2.? Hyperlipidemia 3.? Hypertension 4.? Chronic low back pain 5.? History of DVT at age 38 left lower extremity 6.? Dysphagia 7.? Obesity with BMI 36.0 PLAN: Dr. Franck Pizano did discuss and review with the patient all treatment options including surgical versus nonsurgical options.? Patient does wish to proceed with the above-stated procedure.? Potential risks, benefits, and complications of the procedure were discussed in detail including but not limited to , infection, nerve and blood vessel damage, persistent pain, numbness, tingling, paresthesias, blood clot, pulmonary embolism, and requirement for possible further surgery.? The patient expressed full understanding and has no further questions for the doctor.? Patient does agree to proceed with the above-stated procedure and has signed the surgery consent form. POST-OP MEDICATION PLAN: Pain Medications:? Postoperative pain regimen will be initiated by Dr. Franck Pizano in the hospital.? Patient does have a walker that he will bring to the hospital.? Clearance has been obtained.? Patient did have positive MSSA on preoperative testing and we will use doxycycline postoperatively.? I did inform the patient that he is more sensitive to the sunlight on this medication.? He should take appropriate precautions.? Also recommended [id number] probiotic while on the antibiotic. DVT Prophylaxis:? Due to past history of DVT patient will use Rivaroxaban 10 mg once daily for 2 weeks postoperatively.? This will be followed by an additional 2 weeks of aspirin 81 mg twice daily. This dictation was created using voice recognition software. Phonetic and/or grammatical errors may exist. ___? I have re-examined the patient.? There are no clinical changes since date of exam. ___? See progress notes for changes. ___? Dictated on admission Date: ? Time: Signature:
[2024-08-08] VITALS (11 sets, daily range): BP systolic 101–135; BP diastolic 57–83; PULSE 67–97; RESP 16–18; TEMP 35.9–36.8; O2SAT 96–100; BMI 35.4
--- NOTE | 2024-08-08 09:36 | PCM.PRE.AN2 ---
ASA Classification* ASA Classification ASA Classification: 2 Assessment & Plan Anesthesia* Anesthesia Assessment Anesthesia Assessment: Discussed sedation and/or anesthesia options, risks, benefits, and alternatives with patient/parents/legal guardian/POA. Questions invited. The patient/parents/legal guardian/POA seems to understand and agrees to proceed with anesthesia plan. Reviewed the physical assessment, medical history, allergy history and patient home medications list prior to surgery/procedure/anesthetic and documented any changes. Performed airway and anesthesia risk assessments. Anesthesia Type Anesthesia Type: Spinal Anesthesia Focused Assessment* Airway Assessment Mouth opens: >3 cm Mallampati Score: II Focused Labs Anesthesia Preop lab: CBC WBC 6.1 K/mm3 (4.4-11.0) 07/12/24 08:46 RBC 4.87 M/mm3 (4.6-6.2) 07/12/24 08:46 Hgb 15.2 g/dL (13.0-16.5) 07/12/24 08:46 Hct 45.5 % (40-54) 07/12/24 08:46 Plt Count 305 K/mm3 (150-450) 07/12/24 08:46 CHEMISTRY Potassium 4.3 mmol/L (3.5-5.1) 07/12/24 08:46 Sodium 138 mmol/L (136-145) 07/12/24 08:46 Magnesium 2.4 mg/dL (1.6-2.6) 07/12/24 08:46 BUN 17 mg/dL (7-18) 07/12/24 08:46 Creatinine 0.95 mg/dL (0.70-1.30) 07/12/24 08:46 Glucose 110 mg/dL (74-106) H 07/12/24 08:46 COAG Pre-Assessment Diagnosis/Proposed Procedure Planned Operative Procedure(s): ANTERIOR RIGHT HIP ARTHROPLASTY Anesthesia History Anesthesia History - last trimmer: Anesthesia History - last trimmer Hx Hospitalization No 07/12/24 08:10 Any Problems With Anesthesia No 07/12/24 08:10 Cholinesterase deficiency No 07/12/24 08:10 You/Your Family Experience No 07/12/24 08:10 fever (hyperthermia) with Relationship Recent Exposure to Contagious Disease Does patient have nerve No 07/12/24 08:10 stimulator Patient instructed to have device shut off --Does patient have Pacemaker or ICD? When Was Last Pacemaker Check QUESTION #4 FULL TEXT: You/Your Family Experience fever (hyperthermia) with Anesthesia Last Oral Intake Last Oral intake: Last Oral Intake NPO since Meds taken in AM with sips of water? Meds patient instructed to take am of surgery PONV PONV - last trimmer: PONV - last trimmer Female No 07/12/24 08:10 HX of Motion Sickness No 07/12/24 08:10 HX of N/V After Surgery No 07/12/24 08:10 Non-Smoker Yes 07/12/24 08:10 Duration of Surgery greater Yes 07/12/24 08:10 than 60 minutes Number of Risk Factors 2 07/12/24 08:10 PONV Score Moderate Risk 07/12/24 08:10 Height & Weight Height & Weight: Anesthesia: Height & Weight Height 5 ft 11 in 08/05/24 08:44 Weight: 117.027 kg 08/05/24 08:44 Respiratory Assessment Respiratory Assessment - last trimmer: Respiratory Tract Infection Hx - last trimmer Hx Respiratory Tract Infection No 07/12/24 08:10 STOP Sleep Apnea STOP Sleep Apnea - last trimmer: STOP Sleep Apnea - last trimmer Hx Hypertension Yes: CONTROLLED WITH MED 07/12/24 08:10 Hx Sleep Apnea No 07/12/24 08:10 CPAP BIPAP Do you snore loudly (louder No 07/12/24 08:10 than talking or can be heard Do you often feel tired/ No 07/12/24 08:10 fatigued/ sleepy during daytime? Has anyone observed you stop No 07/12/24 08:10 breathing during sleep? STOP Results Negative 07/12/24 08:10 QUESTION #5 FULL TEXT : Do you snore loudly (louder than talking or can be heard through closed doors)? 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 Specify any problems Hx of Preganancy in last 3 N/A 07/12/24 08:10 Months Nurse Filling Out Transfusion DSCHRIBER 07/12/24 08:10 & Questions: Date: 07/12/24 07/12/24 08:10 Time: 08:12 07/12/24 08:10 Patient unable to answer at this time (ie. confused, unrespo /Reproduction History /Reproductive History - last trimmer: /Reproductive Hx- last trimmer Hx Now No 07/12/24 08:10 Gestational Age (in weeks): EDC: Hx Hx Para Hx Section SAB No 07/12/24 08:10 Active Medications Active Medications: Current Medications Generic Name Dose Route Start Last Admin Trade Name Freq PRN Reason Stop Dose Admin Acetaminophen 1,000 mg 08/08/24 11:15 Acetaminophen 500 Mg Tablet PO 08/08/24 11:16 X1 ONE Acetaminophen 1,000 mg 08/08/24 14:00 Acetaminophen 500 Mg Tablet PO Q8 [facility] Ascorbic Acid 1,000 mg 08/08/24 10:00 Ascorbic Acid 500 Mg Tablet PO DAILY [facility] Celecoxib 400 mg 08/08/24 11:15 Celecoxib 200 Mg Capsule PO 08/08/24 11:16 X1 ONE Tranexamic Acid 2,000 mg/ 0 mg 08/08/24 11:15 Sodium Chloride 100 ml OPERA.SITE 08/08/24 11:16 X1 ONE Sodium Chloride 77.4 ml/ 0 ml 08/08/24 11:15 Ropivacaine 200 mg/ OPERA.SITE 08/08/24 11:16 Epinephrine HCl 0.6 mg/ X1 ONE Ketorolac Tromethamine 30 mg/ Morphine Sulfate 5 mg Dexamethasone Sodium Phosphate 10 mg 08/08/24 11:15 Dexamethasone 10 Mg/Ml Vial IV 08/08/24 11:16 X1 ONE Doxycycline Monohydrate 100 mg 08/09/24 13:00 Doxycycline 100 Mg Capsule PO BID [facility] Enteral Nutritional Formula 237 ml 08/08/24 12:00 Ensure Surgery 237 Ml Liquid PO TIDCM [facility] Famotidine 20 mg 08/08/24 10:00 Famotidine 20 Mg Tablet PO DAILY [facility] Gabapentin 600 mg 08/08/24 11:15 Gabapentin 600 Mg Tablet PO 08/08/24 11:16 X1 ONE Lactated Ringer's 1,000 mls @ 999 mls/hr 08/08/24 11:15 IV 08/08/24 12:15 .Q1H1M [facility] Cefazolin Sodium 2 gm/ N/A 20 mls @ 400 mls/hr 08/08/24 11:15 IV 08/08/24 11:17 PREOP ONE Magnesium Sulfate 1 gm/ 102 mls @ 408 mls/hr 08/08/24 11:15 Dextrose IV 08/08/24 11:29 X1 ONE Cefazolin Sodium 1 gm in 50 mls @ 150 mls/hr 08/08/24 14:00 IV 08/08/24 22:19 Q8 HOLLIS Sodium Chloride 1,000 mls @ 15 mls/hr 08/08/24 09:35 IV 08/13/24 22:54 .Q48H [facility] Protocol Insulin Human Lispro 1 - 6 unit 08/08/24 11:15 Insulin Lispro 100 Unit/Ml Insuln.Pen SC Q4H PRN PRN BG>/= 180, SEE PROTOCOL Protocol Ketorolac Tromethamine 15 mg 08/08/24 08:52 Ketorolac 15 Mg/Ml Vial IV 08/10/24 08:55 Q6H PRN PRN Pain Score 1-5 Losartan Potassium 25 mg 08/08/24 10:00 Losartan Potassium 25 Mg Tablet PO DAILY [facility] Protocol Morphine Sulfate 2 - 4 mg 08/08/24 08:52 Morphine 2 Mg/Ml Syringe IV Q2H PRN PRN Pain Score 4-10 Non-Formulary Medication 10 mcg 08/08/24 10:00 Cholecalciferol (Vitamin D3) [Vitamin D3] PO DAILY [facility] Ondansetron HCl 4 mg 08/08/24 08:52 Ondansetron 4 Mg/2 Ml Vial IV Q8H PRN PRN NAUSEA Oxycodone HCl 5 - 10 mg 08/08/24 08:52 Oxycodone 5 Mg Tablet PO Q4H PRN PRN Pain Score 4-10 Promethazine HCl 12.5 mg 08/08/24 08:52 Promethazine 25 Mg/Ml Syringe IM Q6H PRN PRN NAUSEA/VOMITING Protocol Rivaroxaban 10 mg 08/09/24 06:00 Rivaroxaban 10 Mg Tablet PO DAILY@0600 [facility] Senna/Docusate Sodium 2 tablet 08/08/24 10:00 Senna/Docusate Sodium 1 Tablet PO BID [facility] Medical History Alcohol use History of steroid therapy Arthritis High cholesterol Back pain Non-smoker History of pain when walking DVT (deep venous thrombosis) History of echocardiogram History of stress test COVID Hypertension Home Medications ?Medication ?Instructions ?Recorded ?Last Taken ?Type losartan 25 mg tablet 25 mg PO DAILY #90 tabs 06/13/24 Unknown Rx ascorbic acid (vitamin C) 1,000 mg 1 g PO DAILY 07/12/24 Unknown History tablet (C-1000) cholecalciferol (vitamin D3) 10 10 mcg PO DAILY 07/12/24 Unknown History mcg (400 unit) capsule (Vitamin D3) cyanocobalamin (vitamin B-12) 50 50 mcg PO DAILY 07/12/24 Unknown History mcg lozenges (Vitamin B-12) omega 3 350 mg-dha 235 mg-epa 90 1 cap PO DAILY 07/12/24 Unknown History mg-fish oil 597 mg capsule,delay rel ([place]-3) vitamin E 268 mg (400 unit) capsule 268 mg PO DAILY 07/12/24 Unknown History Allergy/AdvReac Type Severity Reaction Status Date / Time No Known Allergies Allergy Verified 07/19/24 14:13 Family History Mother Cancer bladder with mets Grandfather Cancer Grandfather Cancer Surgical History History of right shoulder replacement H/O hernia repair H/O: knee surgery Social History household members: spouse and children number of children: 2 current occupational status: employed current occupation: [employer] Smoking Status: Never smoker Electronic Cigarette Use: not used alcohol intake: current alcohol intake frequency: a few times a week Alcohol type: beer substance use type: does not use what type of physical activity do you participate in: walking frequency: daily do you feel safe at home: Yes Review of Systems (Anesthesia) ROS Narrative System reviewed and no additional complaints, except as documented.
[2024-08-08] MEDS: Magnesium 1 GM over 15 mins IV (10:29)
[2024-08-08] MEDS: Lactated Ringers 1,000 ML 999 ML IV (10:29)
[2024-08-08] MEDS: Acetaminophen 500 MG Tablet 1000 MG PO ×2 (10:34→17:05)
[2024-08-08] MEDS: Celecoxib 200 MG Capsule 400 MG PO (10:35)
[2024-08-08] MEDS: Gabapentin 600 MG Tablet PO (10:35)
[2024-08-08] MEDS: Vancomycin HCl 1,750 MG in 0.9% Normal Saline (500mL Bag) 500 ML 250 MG IV (10:59)
--- NOTE | 2024-08-08 11:15 | HIP_PTH ---
PATIENT: BARBIE ROBERTSON LOC: MS3 U#:[id number] AGE/SX: 54/M ROOM: [facility] [place]08/08/[address]: Dr. Franck Pizano MD : 1970 BED: 1 DIS: 08/09/2024 SPEC #: [id number] RECD: 08/08/24 16:42 STATUS: VAIBHAV REQ #: [id number] EAN: 08/08/24 11:[address]: Franck Pizano DEPT: SURGICAL PATHOLOGY RECD BY: Tish Yeung ENTERED: 08/09/24 10:49 SP TYPE: TOTAL HIP OTHR DR: MD Dr. Nell Childers MD Dr. Nana Yaa Koram, MD Dr. Nicholas F Kotsonis, MD Tissues: Hip, NOS Procedures: Decalcification bone/plaque Surgery Specimen Level IV HEADER OPERATION: Anterior right total hip arthroplasty PRE-OP DIAGNOSIS: Right hip osteoarthritis with labral tear TISSUE SUBMITTED: Right hip bone MICROSCOPIC DIAGNOSIS Right hip bone and soft tissue, total hip replacement/resection: Femoral head with degenerative osteoarthritic changes. Fragments of dense fibroconnective tissue and reactive synovial tissue. JM: 08/12/2024 MICROSCOPIC DESCRIPTION Slides are reviewed. GROSS DESCRIPTION Received is one container labeled with the patient's name and designated bone and soft tissue right hip. The specimen consists of a sarkar femoral head measuring 5.5 x 5.5 x 4.5 cm The articular surface displays prominent osteophyte formation and bone erosion. Also present in the container is a piece of detached bone consistent with portion of femoral neck measuring 5.0 x 3.5 x 2.0cm. Also present in the specimen container are multiple irregular fragments of bone reamings and pink-yellow soft tissue measuring in aggregate 8.0 x 5.0 x 2.0 cm. Warehouse Foreman sections are submitted in two cassettes as follows: 1 - soft tissue, 2 - bone after decalcification. / JM. 08/09/2024 TC:5 CPT: 58319, 71032
[2024-08-08 11:48] LABS: Bedside Glucose 104 mg/dL (74-106)
[2024-08-08] MEDS: Cefazolin 2 GM in Syringe 10 ML IV (12:06)
[2024-08-08] MEDS: dexAMETHasone 10 MG/ML Vial IV (12:14)
--- NOTE | 2024-08-08 13:30 | RAD_ITS ---
STUDY: X-RAY - PELVIS AND RIGHT HIP REASON FOR EXAM: Male, 54 years old. Replacement TECHNIQUE: 7 intraoperative views of the pelvis and hip. 16.7 seconds of fluoroscopy, radiation dose of 3.22mGy COMPARISON: None. FINDINGS: 7 intraoperative studies performed during right hip replacement surgery. Alignment of the components is anatomic, no plain film evidence of intraoperative complication. RAD/Hip 1 view with Pelvis IMPRESSION: No intraoperative complications noted during right hip replacement surgery Electronically Signed: Michael Stewart MD at 15:18 EST ,
--- NOTE | 2024-08-08 13:46 | OP.PCM_ITS ---
Operative Report (Standard) Operative Information Date of Procedure: 08/08/24 Pre-Operative Diagnosis: Right hip primary osteoarthritis Post-Operative Diagnosis: Right hip primary osteoarthritis Surgery/Procedure Performed: Right Total hip Replacement department editor: Yes Assembly Inspector Helper: Delvin Hallman Tasks completed by rn first assist: Other (See operative report) Additional library serials assistant?: No Type of Anesthesia: Spinal RN Documented Start/Stop Times: Operation Date: 08/08/24 11:15 Case Time Into Pre-Op 08/08/24 09:33 Anesthesia Start 08/08/24 12:02 Into Room 08/08/24 12:02 Procedure Start 08/08/24 12:18 Procedure End 08/08/24 14:16 Anesthesia End 08/08/24 14:21 Out of Room 08/08/24 14:21 Into Recovery 08/08/24 14:25 Procedure Start Time: 12:18 Procedure Stop Time: 14:16 Select all DRAINS/GRAFTS/IMPLANTS that apply: Prosthetic device Prosthetic device details: See operative report Special Medications: Ancef Estimated Blood Loss: 500 ml Fluids Replaced: 1000 ml crystalloid Specimen collected: Yes Description of specimen(s) removed: bony cuts Description of surgery: Components used: 1. Accolade 2 Loyal femoral stem size 4 127? 2. Loyal trident 2 acetabular shell size 54 mm 3. Duarte X3 polyethylene MDM 42E 4. Loyal Biolox delta 28mm, 4mm femoral head 5. Duarte MDM cobalt-chromium liner Brief history operative indications: 54 yo m who failed conservative measures for their hip osteoarthritis. X-rays were consistent with osteoarthritis including joint space narrowing, osteophyte formation and subchondral cysts. Total hip replacement was discussed with the patient with risks and benefits including but not limited to blood loss, DVTs, PEs, neurovascular damage, dislocation, general risks of anesthesia including loss of life. Patient demonstrated an understanding medical clearance is obtained the patient was consented for surgery. Procedure: On the date of procedure the patient's R hip was marked in the preoperative area. Patient was then taken back to the operating room where anesthesia assumed control of the C-spine and airway and administered anesthetic. Patient was transferred to the operating table and placed in the supine position. The hips were placed at the break of the bed and a sacral bump was placed. The R lower extremity was then prepped out in a sterile fashion using chlorhexidine while the surgeon scrubbed. The PA was vital in the positioning of the patient. Upon reentering the room the R lower extremity was draped in the standard orthopedic fashion and the incision was marked. A timeout was called and everyone agreed upon the side, the site, the procedure be performed, antibody given, and patient's identity. At this time incision was made through skin, subcutaneous tissue, and fat down to fascia. The fascia was then incised and the TFL was retracted laterally. A retractor was placed on the lateral border of the femoral neck. Attention was directed to the inferior portion of the approach and all crossing vessels were identified and appropriately coagulated. A retractor was then placed on the medial portion of the femoral neck. The anterior capsule was then cleared of all soft tissue and then H shaped capsulotomy was made. The retractors were then placed inside the capsule. The femoral neck was identified and a cleanup cut was made. At this time a power corkscrew was used to remove the femoral head. Attention was then turned toward the acetabulum where the soft tissues were rishabh ropriately retracted and the acetabulum was sequentially reamed to 54 mm. A 54 mm cup was then selected and impacted into place. Acetabular liner was impacted into place and locking mechanism was verified. The position of the acetabular cup was then verified under live fluoroscopy. Attention was then turned to the femur. Soft tissue releases on the medial and lateral femoral neck were appropriately done, the leg was externally rotated and lateralized. A Lantigua retractor was placed medially and proximally to the greater trochanter this allowed appropriate visualization and exposure of the femoral canal. Rongeour was then used to remove excess lateral bone. A canal finder and entry broach were used to open the proximal canal. Once we verified we were down the femoral canal we subsequently broached up to a size 4 femur. The appropriate neck was placed in the previously selected head was trialed with a 0 mm neck. Traction was pulled and the hip was reduced with internal rotatio n. Once it was appropriately reduced and stability was checked. There was minimal shuck, equal leg lengths and appropriate stability with hyperextension and external rotation as well as with 90? flexion and internal rotation. Fluoroscopy was then also used to verify the position of the components and leg lengths using the contralateral side for comparison. The trial components were then dislocated the proximal femur was again exposed and the components were removed from the wound. The final components were verified and opened. The wound was copiously irrigated out with normal saline. The acetabulum was checked for any residual debris. The final components were placed and impacted. Traction and internal rotation were again used to reduce the hip. After adequate reduction the hip did not remain stable with appropriate leg lengths. The final components were once again checked with live fluoroscopy and the femur also was an unsatisfactory amount of varus compared to what we felt the trial components appear to be in. At this time the hip was dislocated. Femoral head and trunnion were dissociated. Femoral component was removed. Acetabular liner was removed using the screw and an MDM liner was impacted into place. Based on the fluoroscopy the acetabular component was not in excessive anteversion as well as palpating the anterior rim we did not want to further retroverted in order to prevent uncovered acetabular component. Patient did have very narrow femoral canal and the intramedullary reamers were used to ream the canal up to 12 mm. Once we reamed the canal 12 mm we broached the size 4 into less varus. Live fluoroscopy was used to reduce the hip with a +4 mm 42E head. At this point the hip did remain stable in the component appear to be in much less varus than previously. Final components were opened for the MDM head. The previous 11/01/2026 stem could be reused. Femoral trunnion was copiously irrigated and cleaned and the final head was impacted after impacting the femoral into place. Leg lengths were checked based on lesser trochanters and medial malleoli and appear to be appropriate. The wound was then copiously irrigated with normal saline once more, and hemostasis was obtained. Closure was then done using #1 Vicryl runner to close the fascia. A 2-0 vicryl interuppted sutures were used to close the subcutaneous skin. Nylon sutures we re used for final skin closure were used for final skin closure. A Silverlon dressing was placed. Patient was awakened by anesthesia and transferred to the [facility]. Patient was then transferred to the PACU for recovery. Postoperative plan: Patient will get 24 hours postop antibiotics. Patient will get in-house physical therapy and will be weight-bear as tolerated. Patient will follow up in office in 2 weeks for a wound check and x-rays. Xarelto due to previous DVT. During the course of the procedure the physician talent development coordinator (PE) played a vital role. Their intimate knowledge of my steps in the procedure aided in safe and expedient completion of the procedure. The PE played a vital rolls in positioning particularly in obtaining the appropriate positioning of the sacral bump. The PE was also vital in the retraction of soft tissues during the exposure and especially the femoral work as this is a vital part of the procedure to prevent complications and fractures. The PE was also vital and protecting soft tissues during times of bony cuts and reaming. He also played a vital role in closure with my direct supervision. The PE was also important during reduction and dislocation of the joint and trials intraoperatively. Surgical Findings: Stable hip. Stage IV osteoarthritis. Labral tear Complications Complications: No
[2024-08-08] MEDS: JPS (Morphine 10mg/ml) OPERA.SITE (13:49)
--- NOTE | 2024-08-08 14:24 | PCM.POST.ANE ---
Anesthesia: Postop Eval I Current Vital Signs Temperature: 96.7 F Pulse Rate: 75 Blood Pressure: 101/57 Respiratory Rate: 18 Pulse Ox: 96 Assessment Airway patent: Yes Spontaneous unlabored respirations: Yes nausea: No Vomiting: No Anesthesia Complication: No Fluid Hydration Crystalloid volume administer (ml): 1,000 Total IV fluid infused: 1,000 Progress Note Anesthesia document: Postop Eval 1 completed: Yes
[2024-08-08] MEDS: 0.9% Normal Saline (1000mL) 1,000 ML 15 ML IV (14:36)
--- NOTE | 2024-08-08 14:40 | RAD_ITS ---
STUDY: X-RAY - PELVIS AND RIGHT HIP REASON FOR EXAM: Male, 54 years old. Postop from hip replacement surgery TECHNIQUE: 2 views of the pelvis and hip. COMPARISON: None. FINDINGS: Patient is postop from right hip replacement surgery. Components demonstrate anatomic alignment, no plain film evidence of postoperative complication. Normal postoperative soft tissue swelling and subcutaneous emphysema. RAD/Hip Min 2 Views (Portable) IMPRESSION: Replaced right hip joint demonstrates anatomic alignment. No plain film evidence of hardware complication, failure, or acute traumatic abnormality Electronically Signed: Michael Stewart MD at 15:16 EST ,
--- NOTE | 2024-08-08 14:49 | PN.HOSP_ITS ---
Reason for Visit Reason for Visit: Diagnoses Encounter for other preprocedural examination (08/08/24) Subjective Subjective Patient postoperatively evaluated in PACU and notes block still in place however he does feel some sensation primarily at the incision site and some aching at that spot but no severe pain. He is still unable to intensely move his lower extremity. He denies any dyspepsia or nausea. He is eager for oral intake. Patient denies fevers, chills, nausea, emesis, abdominal pain, chest pain or dyspnea. Objective Data Objective Data Vital Signs: Vital Signs Temp Pulse Resp BP Pulse Ox O2 Del Method O2 Flow Rate 96.7 F L 72 16 110/64 100 Room Air 4 08/08/24 14:25 08/08/24 14:45 08/08/24 14:45 08/08/24 14:45 08/08/24 14:45 08/08/24 14:45 08/08/24 14:35 Oxygen Flow Rate (L/min) 4 Oxygen Delivery Method Room Air Weight: 254 lb 3.088 oz Body Mass Index (BMI) 35.4 Intake & Output: Intake and Output for Last 24 Hours 08/06/24 08/07/24 08/08/24 23:59 23:59 23:59 Intake Total 1657 / 1657 Balance 1657 / 1657 Lab / Micro Data 07/12/24 08:46 07/12/24 08:46 Labs: Laboratory Results - last 24 hr 08/08/24 11:31: POC Glucose 104 Micro: Microbiology 07/12/24 08:46 Swab (Method) Nasal Screen MRSA/MSSA - Final Physical Exam Narrative Physical Examination: General: Awake, alert, oriented x 3 and cooperative, seated upright in the PACU bed, fatigued, notes only pain at the incision site to the right hip. Skin: Normal color, normal turgor, no icterus, no cyanosis except for status post recent right total hip replacement with dressing in place with no drainage. HEENT: AT/NC, EOMI, PERRLA, mildly dry MM Lungs: CTA bilaterally, moderate effort, mild decrease BL bases, no rales, ronchi or wheezing. Heart: Regular rate and rhythm; no gallop, rub audible. Abdomen: Soft, obese, NTTP, ND, mildly hyperactive BS Extremities: No cyanosis, no marked clubbing, mild bilateral, right greater than left ankle not markedly pitting edema, status post recent right total hip replacement, dressing in place with no drainage as noted. Neurological: Patient awake, alert, oriented as noted cognitive function intact; pupils equally reactive to light and accommodation, cranial nerves grossly normal, block still active, strength accordingly severely globally decreased. Psychiatric: Affect appears fatigued otherwise normal, no acute evidence of depressive or anxiety feelings. Assessment & Plan Assessment/Plan (1) Right hip pain: PLAN: Plan The patient is a 54 y/o M w/ PMHx: Obesity, HTN, Hx DVT, Severe OA who presents to the [facility] in 08/08/2024 for planned right total hip replacement per Dr. Pizano given failed outpatient interventions and therapies. #1. Severe Osteoarthritis, right hip: Failed conservative therapies and treatments, admitted per Dr. Pizano, s/p right total hip replacement, post- operative pain management, bowel regimen, DVT Prophylaxis, PT/OT/CM per Orthopedic surgery discretion. #2. Hypertension: Continue home regimen including losartan, PRN hydralazine. #3. History of prior DVT: Not currently chronically anticoagulated, agree with continue DVT prophylaxis per surgery discretion #4. Obesity: Weight loss and lifestyle changes encouraged. #5. DVT prophylaxis: SCDs with chemoprophylaxis initiation per surgery discretion given recent OR. Charges/Coding Visit Charges Inpatient E&M: 38299 Subs Hosp L3
[2024-08-08] MEDS: Doxycycline 100 MG CAPSULE PO ×2 (17:04→22:33)
[2024-08-08] MEDS: Ensure Surgery 237 ML LIQUID PO (17:07)
--- NOTE | 2024-08-08 17:24 | POSTOPAN2_ITS ---
Anesthesia Postop Eval I Sum Postop Eval Completion status Anesthesia document: Postop Eval 1 completed: Yes Anesthesia Postop Eval I Summary Anesthesia Postop Eval I Summary: Anesthesia Postop Eval I: Assessment Summary Airway patent Yes 08/08/24 14:24 [email or web address] Spontaneous unlabored Yes 08/08/24 14:24 RN [email or web address] respirations Mental status nausea No 08/08/24 14:24 RN [email or web address] Vomiting No 08/08/24 14:24 RN [email or web address] Anesthesia Postop Eval I: Fluid Summary Crystalloid volume administer 1,000 08/08/24 14:24 RN [email or web address] (ml) Colloids volume administered ( ml) Blood Product volume administered (ml) Total IV fluid infused 1,000 08/08/24 14:24 RN [email or web address] Anesthesia Postop Eval I: Summary Notes Anesthesia Complication No 08/08/24 14:24 RN [email or web address] Anesthesia Complication Comment: Post-operative progress note Anesthesia: Postop Eval II Evaluation Mental status: Awake Pain Level: 0 nausea: No Vomiting: No
--- NOTE | 2024-08-08 17:24 | PCM.POSTANE2 ---
Anesthesia Postop Eval I Sum Postop Eval Completion status Anesthesia document: Postop Eval 1 completed: Yes Anesthesia Postop Eval I Summary Anesthesia Postop Eval I Summary: Anesthesia Postop Eval I: Assessment Summary Airway patent Yes 08/08/24 14:24 VENEER REPAIRER [email or web address] Spontaneous unlabored Yes 08/08/24 14:24 VENEER REPAIRER MACHINE.CSIR respirations Mental status nausea No 08/08/24 14:24 VENEER REPAIRER MACHINE.CSIR Vomiting No 08/08/24 14:24 VENEER REPAIRER [email or web address].CSIR Anesthesia Postop Eval I: Fluid Summary Crystalloid volume administer 1,000 08/08/24 14:24 VENEER REPAIRER MACHINE.CSIR (ml) Colloids volume administered ( ml) Blood Product volume administered (ml) Total IV fluid infused 1,000 08/08/24 14:24 VENEER REPAIRER MACHINE.CSIR Anesthesia Postop Eval I: Summary Notes Anesthesia Complication No 08/08/24 14:24 VENEER REPAIRER MACHINE.CSIR Anesthesia Complication Comment: Post-operative progress note Anesthesia: Postop Eval II Evaluation Mental status: Awake Pain Level: 0 nausea: No Vomiting: No
[2024-08-08] MEDS: Cefazolin 1 GM/50 ML BAG IV (19:57)
[2024-08-08] MEDS: Senna/Docusate Sodium 1 Tablet 2 TABLET PO (22:33)
[2024-08-09 03:24] VITALS: BP 133/80; PULSE 88; RESP 18; TEMP 36.6; O2SAT 97
[2024-08-09] MEDS: Acetaminophen 500 MG Tablet 1000 MG PO ×2 (03:42→10:18)
[2024-08-09] MEDS: Cefazolin 1 GM/50 ML BAG IV (03:43)
[2024-08-09 06:14] LABS: Hematocrit 39.8 % (40-54); Hemoglobin 13.3 g/dL (13.0-16.5); Mean Corp Hgb Conc 33.4 g/dL (32-36); Mean Corpuscular Hgb 30.9 pg (27.0-32.0); Mean Corpuscular Volume 92.6 fL (80-94); Mean Platelet Vol. 9.3 fl (6.2-12.0); Platelet Count 279 K/mm3 (150-450); RBC Distribution Width SD 40.9 fl (35.1-43.9); White Blood Count 17.1 K/mm3 (4.4-11.0)
[2024-08-09] MEDS: Rivaroxaban 10 MG Tablet PO (06:28)
[2024-08-09 06:32] LABS: Anion Gap 6 (5-15); BUN 17 mg/dL (7-18); BUN/Creat Ratio 16.7 RATIO (10-20); Calcium,Total 8.9 mg/dL (8.5-10.1); Chloride 106 mmol/L (98-107); Creatinine, Serum 1.02 mg/dL (0.70-1.30); EST Glomerular Filtration Rate 81 mL/min (>60); Est Glom Filt Rate - Afr Amer 98 mL/min (>60); Estimated Creatinine Clearance 108.16 ml/min; Glucose 243 mg/dL (74-106); Potassium 4.4 mmol/L (3.5-5.1); Sodium Level 135 mmol/L (136-145)
[2024-08-09 08:03] VITALS: BP 150/90; PULSE 94; RESP 18; TEMP 36.5; O2SAT 94
--- NOTE | 2024-08-09 08:03 | PCM.PN.ORT ---
Subjective Subjective The patient was sitting in bed upon examination. Patient denies any chest pain, shortness of breath, dizziness, lightheadedness, nausea or vomiting, or calf pain. Pain is controlled on medications. No adverse overnight events. Patient states his hip pain is much better after surgery today. He is been dealing with shoulder problems in which those are more problematic at this time. Patient has been up walking to the bathroom. Objective Data Objective Data Vital Signs: Vital Signs Temp Pulse Resp BP Pulse Ox O2 Del Method O2 Flow Rate 97.8 F 88 18 133/80 H 97 Room Air 4 08/09/24 03:24 08/09/24 03:24 08/09/24 03:24 08/09/24 03:24 08/09/24 03:24 08/09/24 03:24 08/08/24 15:00 Oxygen Flow Rate (L/min) 4 Oxygen Delivery Method Room Air Weight: 115.3 kg Body Mass Index (BMI) 35.4 Intake & Output: Intake and Output for Last 24 Hours 08/07/24 08/08/24 08/09/24 23:59 23:59 23:59 Intake Total 2157 / 2157 1350 / 1350 Output Total 800 / 800 Balance 2157 / 2157 550 / 550 Lab / Micro Data 08/09/24 05:42 08/09/24 05:42 Labs: Laboratory Results - last 24 hr 08/08/24 11:31: POC Glucose 104 08/09/24 05:42: WBC 17.1 H, RBC 4.30 L, Hgb 13.3, Hct 39.8 L, MCV 92.6, MCH 30.9, MCHC 33.4, RDW Std Deviation 40.9, RDW Coeff of Suzi 12.0, Plt Count 279, MPV 9.3, Sodium 135 L, Potassium 4.4, Chloride 106, Carbon Dioxide 23.0, Anion Gap 6, BUN 17, Creatinine 1.02, Estim Creat Clear Calc 108.16, Est GFR (MDRD) Af Amer 98, Est GFR (MDRD) Non-Af 81, BUN/Creatinine Ratio 16.7, Glucose 243 H, Calcium 8.9 Micro: Microbiology 07/12/24 08:46 Swab (Method) Nasal Screen MRSA/MSSA - Final Radiography Diagnostic Testing: Radiology Impression Hip/Pelvis X-Ray 08/08/24 13:30 IMPRESSION: No intraoperative complications noted during right hip replacement surgery Electronically Signed: Michael Stewart MD at 15:18 EST , Hip X-Ray 08/08/24 14:40 IMPRESSION: Replaced right hip joint demonstrates anatomic alignment. No plain film evidence of hardware complication, failure, or acute traumatic abnormality Electronically Signed: Michael Stewart MD at 15:16 EST , Physical Exam Narrative Vital signs stable and afebrile. Right hip is soft and supple SCDs and DINO hose are in place bilaterally Patient is able to plantarflex and dorsiflex actively. Sensation is intact to light touch to saphenous, sural, superficial and deep peroneal, and tibial distribution. Mepilex dressing has minimal drainage over the middle one third. There is some surrounding erythema on the skin which is reactive from surgery Negative Homans bilaterally, negative signs and symptoms of DVT. Const alert, oriented x3 and no apparent distress Assessment & Plan Assessment/Plan (1) Status post total hip replacement, right: PLAN: 1. S/P direct anterior right total hip arthroplasty POD #1 2. Continue Pain Medications: Tylenol and oxycodone. 3. DVT Prophylaxis: Patient is currently on Xarelto 10 mg once daily for 2 weeks postoperatively due to past history of DVT. After 2 weeks he will then be transitioned over to aspirin 81 mg twice daily for an additional 2 weeks. 4. PT/OT: Weightbearing as tolerated with walker. Follow anterior hip precautions 5. H & H: 13.3/39.8, asymptomatic. Labs have been reviewed and stable 6. Reactive leukocytosis: 17.1, Afebrile. Patient did receive Decadron intraoperatively. No clinical signs of infection. 7. Currently on doxycycline for 2 weeks postoperatively. Patient did test positive for MSSA preoperatively. I discussed with the patient potential side effects of doxycycline including sensitivity to the sunlight and increased risk of skin burn. Recommend patient take appropriate precautions. Also recommend patient to take probiotic while on the antibiotic. Patient voiced understanding agreement. 8. Encouraged Incentive Spirometry 9. Patient is aware of postoperative constipation that can occur from 1-3 days postoperatively. Will continue with senna 2 tablets twice daily until first bowel movement. Patient was advised if not having a bowel movement after day 3 she is to contact orthopedics so appropriate change can be made. Patient voiced understanding. 10. Continue postoperative medical treatment per medicine 11. Disposition: Patient is overall doing very well this morning. Plan will be for discharge home today as long as patient remains medically stable, tolerates therapy, and pain is adequately controlled. Patient would like his medications E scribed to [facility] pharmacy. Patient will follow-up per postoperative instructions. Patient does have outpatient physical therapy established. Upon discharge patient has been instructed to contact our office with any concerns or questions. I have reviewed the [place] Automated Rx Reporting System (OARRS) report for this patient for refill pattern and other prescriber involvement as part of the appropriate surveillance for the provision of acute and chronic controlled medications. The report was requested and reviewed on the date of this entry and was considered in the prescribing process. This dictation was created using voice recognition software. Phonetic and/or grammatical errors may exist.
[2024-08-09] MEDS: Senna/Docusate Sodium 1 Tablet 2 TABLET PO (08:10)
[2024-08-09] MEDS: Ascorbic Acid 500 MG Tablet 1000 MG PO (08:10)
[2024-08-09] MEDS: Doxycycline 100 MG CAPSULE PO (08:10)
--- NOTE | 2024-08-09 08:10 | PCM.DC ---
Discharge Instructions Diet Discharge Diet: No restrictions DC O2, CPAP, BIPAP needs Home O2 Discharge instructions: No Dressing / Incision Discharge Activity: May Not Drive (No driving for 6 weeks postoperatively. Must also be off all narcotics and able to walk 100 feet without the use of cane or walker.) May shower in (days): 1 (only if incision is dry and without drainage. Do NOT soak/submerge in tub/pool/to/stream/hot tub.)) Ice area for (Minutes): 20 (Every 1-2 hours while awake[address] barrier between ice and skin.) Weight Bearing Status: Weight bearing as tolerated Keep extremity elevated above heart level: Operative Extremity Additional Activity Instructions:: Follow [facility] Post-op Instructions. Once postoperative dressing has been removed only use gentle soap and water over the incision. Do not use any ointments, Neosporin, salves, alcohol pads over the incision for 6 weeks postoperatively. Do not submerge underwater for 6 weeks postoperatively. Wear elastic stockings for 2 weeks. Do NOT use alcohol with narcotic pain medication. Do NOT make important decisions while taking narcotic medication. If you have problems with taking your medication (rash, itching, nausea, etc.) call the office at once. Dressing / Incision Call your doctor if your incision/area has: Continuous Slow Oozing, Sudden Increased Bleeding, Increased Pain/ Swelling, Increased Redness and Foul Smelling Discharge Call your doctor if you observe: Fever of 101 or Higher, Shortness of breath, Chest pain, Calf discomfort and Uncontrolled pain Remove Dressing in: 4 days (Okay to remove dressing on August 13, 2024) Additional Dressing/Incision Instructions:: Follow [facility] Post-op Instructions. Once postoperative dressing has been removed, only use gentle soap and water over the incision. Do not use any ointments, Neosporin, salves, alcohol pads over the incision for 6 weeks postoperatively. Do not submerge underwater for 6 weeks postoperatively. Continue with DINO hose/elastic stockings for 2 weeks postoperatively. May remove at nighttime but needs to be placed back on the leg during the day. Do NOT use alcohol with narcotic pain medication. Do NOT make important decisions while taking narcotic medication. If you have problems with taking your medication (rash, itching, nausea, etc.) call the office at once. Follow Up Care Test Results: Test results from this visit will be discussed in further detail at your follow-up appointment, if applicable. Discharge Plan Admission Admit Date/Time: 08/08/24 08:53 Attending Provider: Franck Pizano Primary Care Provider: Joana Yanes Consulting Providers: Nell Hamilton; Jacoby Brady; Lian Montes Discharge Orders/Prescriptions Prescriptions: New acetaminophen 500 mg Tablet 1,000 mg PO Q8H 14 Days Qty: 84 0RF Rx Instructions: Do not take more than 3000 mg Tylenol in a 24-hour period. famotidine 20 mg Tablet 20 mg PO DAILY 30 Days Qty: 30 0RF doxycycline monohydrate 100 mg Capsule 100 mg PO BID 14 Days Qty: 28 0RF oxycodone 5 mg Tablet 5 - 10 mg PO Q4H PRN PRN (Reason: Pain Score 4-10) 7 Days Qty: 42 0RF Xarelto 10 mg Tablet 10 mg PO DAILY@0600 14 Days Qty: 14 0RF Rx Instructions: Take 2 weeks postoperatively for DVT prophylaxis. sennosides-docusate sodium [Stimulant Laxative Plus] 8.6-50 mg Tablet 2 tab PO BID 3 Days Qty: 12 0RF Rx Instructions: Take until first bowel movement, then as needed Continued ascorbic acid (vitamin C) [C-1000] 1,000 mg tablet 1 g PO DAILY Vitamin B-12 50 mcg lozenge 50 mcg PO DAILY cholecalciferol (vitamin D3) [Vitamin D3] 10 mcg (400 unit) capsule 10 mcg PO DAILY vitamin E 268 mg (400 unit) capsule 268 mg PO DAILY [place]-3 350 mg-235 mg- 90 mg-597 mg capsule,delayed release(DR/EC) 1 cap PO DAILY losartan 25 mg tablet 25 mg PO DAILY Qty: 90 1RF Referrals / Follow Up: Physical,Therapy [Other] - 08/11/24 8:00 am Joana Yanes MD [Primary Care Provider] - Teri Elliott PA [Med Staff - [facility]] - 08/22/24 9:00 am Disposition Disposition (needs filled in before D/C Order can be placed): Home, Self Care
[2024-08-09] MEDS: Famotidine 20 MG Tablet PO (08:11)
[2024-08-09] MEDS: Losartan Potassium 25 MG Tablet PO (08:11)
--- NOTE | 2024-08-09 09:12 | CASEMGMT ---
TC to [facility], cost of xarelto is $40.
--- NOTE | 2024-08-09 09:15 | CASEMGMT ---
JESICA WONG Assessment: Face to Face with pt for initial transition planning/care coordination assessment. JESICA WONG introduced self and role at [facility], pt voices understanding and consents to assessment. Pt is A&O x4 and answers all questions appropriately at this time. Pt sitting up in chair in no distress. Care providers, pharmacy, and demographics verified/updated. Strata: 1 Admitting Dx: Anterior R total hip Arthroplasty PCP: Joaquín Specialists: Harinder Luna Pharmacy: [facility] Insurance: MMO Prescription Benefit: yes LNOK: , Nicole Living Arrangements: Pt lives with and kids in a 2 story home with 3 steps and railings to enter. ADLs: Pt I at baseline Transportation: Pt drives self and denies concerns with transportation. will be driving Pt until able able to drive again after having surgery. DME: [facility] HHC/SNF: Denies Hx of Pt states no concerns with going home at time of dc. Pt states no further concerns/needs. CM to follow. Advised pt to ask CM if any further question/concerns/needs arise, voices understanding. Pt Goal: Home Plan: Home, Pt has OP therapy set up with Abimael Aragon to start on August 11. Marija MOONEY CM
--- NOTE | 2024-08-09 14:48 | PN_ITS ---
Subjective Subjective Patient seen and examined. He had no complaints and felt well. Review of systems otherwise negative. He is postop day 1 for right total hip replacement. Objective Data Objective Data Vital Signs: Vital Signs Temp Pulse Resp BP Pulse Ox O2 Del Method O2 Flow Rate 97.7 F L 94 18 150/90 H 94 Room Air 4 08/09/24 08:03 08/09/24 08:03 08/09/24 08:03 08/09/24 08:03 08/09/24 08:03 08/09/24 08:03 08/08/24 15:00 Oxygen Flow Rate (L/min) 4 Oxygen Delivery Method Room Air Weight: 254 lb 3.088 oz Body Mass Index (BMI) 35.4 Intake & Output: Intake and Output for Last 24 Hours 08/07/24 08/08/24 08/09/24 23:59 23:59 23:59 Intake Total 2157 / 2157 1581 / 1581 Output Total 800 / 800 Balance 2157 / 2157 781 / 781 Lab / Micro Data 08/09/24 05:42 08/09/24 05:42 Labs: Laboratory Results - last 24 hr 08/09/24 05:42: WBC 17.1 H, RBC 4.30 L, Hgb 13.3, Hct 39.8 L, MCV 92.6, MCH 30.9, MCHC 33.4, RDW Std Deviation 40.9, RDW Coeff of Suzi 12.0, Plt Count 279, MPV 9.3, Sodium 135 L, Potassium 4.4, Chloride 106, Carbon Dioxide 23.0, Anion Gap 6, BUN 17, Creatinine 1.02, Estim Creat Clear Calc 108.16, Est GFR (MDRD) Af Amer 98, Est GFR (MDRD) Non-Af 81, BUN/Creatinine Ratio 16.7, Glucose 243 H, Calcium 8.9 Micro: Microbiology 07/12/24 08:46 Swab (Method) Nasal Screen MRSA/MSSA - Final Radiography Diagnostic Testing: Radiology Impression Hip/Pelvis X-Ray 08/08/24 13:30 IMPRESSION: No intraoperative complications noted during right hip replacement surgery Electronically Signed: Michael Stewart MD at 15:18 EST Reading Location ID and State: [facility] / [place] , Service support , Hip X-Ray 08/08/24 14:40 IMPRESSION: Replaced right hip joint demonstrates anatomic alignment. No plain film evidence of hardware complication, failure, or acute traumatic abnormality Electronically Signed: Michael Stewart MD at 15:16 EST Reading Location ID and State: [address] [place] [address] , Service support , Physical Exam Const alert, oriented x3, no apparent distress and well nourished General Appearance: cooperative and well developed HEENT normocephalic, head/scalp atraumatic and moist oral mucous membranes Eyes PERRL and EOMs intact bilaterally Neck no lymphadenopathy and supple Lymph Lymphatic: no lymphadenopathy noted and no lymphedema noted Resp normal respiratory effort, normal air movement and clear to auscultation bilaterally Cardio regular rate, regular rhythm, S1 normal heart sound, S2 normal heart sound and no murmurs GI normal to inspection, nondistended, normoactive bowel sounds, soft to palpation, non-tender and non-distended Extremity normal capillary refill, no clubbing, cyanosis or edema and no calf tenderness Extremity Narrative: intact dressing over right hip Neuro CN's II-XII intact bilaterally, no focal motor deficits and no sensory deficits noted Motor Exam: strength 5/5 throughout and general weakness Psych thought process normal and cooperative Appearance: appropriate Assessment & Plan Assessment/Plan (1) Right hip pain: (2) Status post total hip replacement, right: PLAN: Plan #RIght hip osteoarthritis s/p right total hip replacement * Today's postop day 1. * Management as per orthopedic surgery. Pain management as per primary team orthopedics. * Incentive spirometry. PT OT on board. * #Hypertension: On losartan. IV hydralazine as needed #History of previous DVT. Currently not anticoagulated. DVT prophylaxis: * As per primary team. * Per orthopedics to be on Xarelto 10 mg once daily for 2 weeks and then after 2 weeks will be transition to p.o. aspirin 81 mg twice daily for another 2 weeks. Thank you for the courtesy of the consult. Hospitalist service will continue to follow with you whilst patient is in the hospital. Charges/Coding Visit Charges Inpatient E&M: 65606 Subs Hosp L2
== END 2024-08-09 10:41 | disposition home or self-care (01) ==
LOC: SDC 21:22 → AC 21:23 → SDC 21:23 → MS3 21:23
PROVIDERS: Anesthesiology; Admitting Provider Specialist; PCP Internal Medicine; Referring Provider Specialist; Visit Provider Specialist
PROC: (CPT 27284; principal; 2024-08-08 10:50)
DX: M16.11 Unilateral primary osteoarthritis, right hip (principal); E78.2 Mixed hyperlipidemia; I10 Essential (primary) hypertension; Z86.718 Personal history of other venous thrombosis and embolism; R26.2 Difficulty in walking, not elsewhere classified; R13.10 Dysphagia, unspecified; Z87.891 Personal history of nicotine dependence; Z79.899 Other long term (current) drug therapy; E66.9 Obesity, unspecified; Z68.36 Body mass index [BMI] 36.0-36.9, adult
CPT/HCPCS: 27130; 01214; 36415; 73501; 73502; 76000; 80048; 82040; 82962; 83735; 85025; 85027; 87077; 87081; 88305; 88311; 93005; 94668; 96365; 96366; 97162; 97166; 99221; 99252; C1776; G0378; G0463; J2405; J3475

== ENCOUNTER 2024-11-09 23:50 | Emergency (ER) | payer OTHER, SELFPAY ==
[2024-11-09 23:50] VITALS: BP 136/85; PULSE 94; RESP 22; TEMP 36.9; O2SAT 96; O2SAT 97; BMI 35.8
[2024-11-09 23:55] VITALS: BP 136/85; PULSE 91; RESP 22; TEMP 36.9; O2SAT 97
[2024-11-10 00:38] VITALS: PULSE 98; RESP 18
[2024-11-10] MEDS: Ipratropium/Albuterol Sulfate 3 ML AMPUL.NEB INHALATION (00:38)
[2024-11-10] MEDS: guaiFENesin/Codeine 5 ML UDC 10 ML PO (00:44)
--- NOTE | 2024-11-10 00:50 | RAD_ITS ---
PROCEDURE: CHEST PA AND LATERAL 11/09/2024 REASON FOR EXAM: COUGH TECHNIQUE: Frontal and lateral views of the chest. COMPARISON: None available FINDINGS: Hardware: None Heart: Cardiomediastinal silhouette is within normal limits. Normal pulmonary vascularity. Mediastinum: Unremarkable Lungs: No focal consolidation Bones: No acute fractures. RAD/Chest PA and Lateral IMPRESSION: No acute cardiopulmonary abnormality. Reading Location: [id number]
--- NOTE | 2024-11-10 01:51 | EX.ED.DYSGE1 ---
HPI History of Present Illness Chief Complaint: Shortness of Breath Informant: patient Narrative Narrative: Patient is a 54-year-old male with past medical history of hypertension. He states there has been multiple sick contacts at work. He reports that over the last 10 days he has had persistent congestion cough and shortness of breath sensation. He states he went to an urgent care and was given a Z-Trevor and steroids and has been taking these as directed. However he feels there has been no symptom improvement. He is concerned he may have developed pneumonia or have a viral infection such as COVID and therefore comes in for evaluation. [facility] Medical History Alcohol use History of steroid therapy Arthritis High cholesterol Back pain Non-smoker History of pain when walking DVT (deep venous thrombosis) History of echocardiogram History of stress test COVID Hypertension Home Medications ?Medication ?Instructions ?Recorded ?Last Taken ?Type ascorbic acid (vitamin C) 1,000 mg 1 g PO DAILY 07/12/24 Unknown History tablet (C-1000) cholecalciferol (vitamin D3) 10 10 mcg PO DAILY 07/12/24 Unknown History mcg (400 unit) capsule (Vitamin D3) cyanocobalamin (vitamin B-12) 50 50 mcg PO DAILY 07/12/24 Unknown History mcg lozenges (Vitamin B-12) omega 3 350 mg-dha 235 mg-epa 90 1 cap PO DAILY 07/12/24 Unknown History mg-fish oil 597 mg capsule,delay rel ([place]-3) vitamin E 268 mg (400 unit) capsule 268 mg PO DAILY 07/12/24 Unknown History oxycodone 5 mg tablet 5 - 10 mg (1 - 2 x 5 mg) PO Q4H 08/09/24 Unknown Rx PRN PRN Pain Score 4-10 7 days #42 tabs rivaroxaban 10 mg tablet (Xarelto) 10 mg PO DAILY@0600 14 days #14 08/09/24 Unknown Rx tabs prednisone 20 mg tablet 40 mg (2 x 20 mg) PO QDAY 5 days 11/06/24 Unknown Rx #10 tabs acetaminophen 500 mg tablet 1,000 mg PO Q8H PRN fever or pain 11/09/24 Unknown History Allergy/AdvReac Type Severity Reaction Status Date / Time No Known Allergies Allergy Verified 11/09/24 23:50 Family History Mother Cancer bladder with mets Grandfather Cancer Grandfather Cancer Surgical History History of right shoulder replacement H/O hernia repair H/O: knee surgery Social History household members: spouse and children number of children: 2 current occupational status: employed current occupation: [employer] Smoking Status: Never smoker Electronic Cigarette Use: not used alcohol intake: current alcohol intake frequency: a few times a week Alcohol type: beer substance use type: does not use what type of physical activity do you participate in: walking frequency: daily do you feel safe at home: Yes ROS ROS ED Constitutional Constitutional ED: Denies chills or fever(s) ENT ENT ED: Reports rhinorrhea and sore throat Cardiovascular Cardiovascular: Denies chest pain Respiratory/Chest Respiratory/Chest: Reports cough and dyspnea Gastrointestinal Gastrointestinal: Denies abdominal pain, diarrhea, nausea or vomiting Genitourinary Genitourinary ED: Denies dysuria Musculoskeletal Musculoskeletal: Denies myalgias Integumentary Denies rash Neurologic Neurologic: Denies headache(s) Hematologic/Lymphatic Hematologic/Lymphatic: Denies easy bleeding or easy bruising Allergic/Immunologic Allergic/Immunologic ED: Denies mouth swelling, tongue swelling or urticaria EXAM Physical Exam Const Vital Signs: 11/09/24 23:50 11/09/24 23:50 11/09/24 23:55 Temperature 98.4 F 98.4 F Temperature Source Oral Oral Pulse Rate 94 91 Respiratory Rate 22 H 22 H Respiratory Effort Short of Breath Respiratory Depth Deep Respiratory Pattern Tachypnea Blood Pressure 136/85 H 136/85 H Blood Pressure Mean 102 102 Pulse Ox 96 97 Oxygen Delivery Method Room Air Room Air Room Air 11/10/24 00:38 Temperature Temperature Source Pulse Rate 98 Respiratory Rate 18 Respiratory Effort Respiratory Depth Respiratory Pattern Normal Blood Pressure Blood Pressure Mean Pulse Ox Oxygen Delivery Method Positive well nourished and well developed General Appearance ED: well developed; Negative for pallor HEENT HEENT Narrative: Nasal mucosa is hyperemic and boggy There is cobblestoning noted in the posterior pharynx consistent with sinus drainage without airway edema or compromise No secondary changes to suggest infection Eyes PERRL and EOMs intact bilaterally General Eye ED: Negative for scleral icterus Neck supple and no JVD Resp normal respiratory effort Resp Narrative: Breath sounds are diminished throughout with diffuse rhonchi as well as expiratory wheezing however no nasal flaring retractions or accessory muscle use. No stridor noted Cardio regular rate and regular rhythm Extremity normal to inspection Neuro oriented x3, CN's II-XII intact bilaterally and no sensory deficits noted Sensorium / Orientation: alert Motor Exam: strength 5/5 throughout Psych mental status grossly normal Skin no rashes or lesions noted and no wounds General Skin Exam: Negative for jaundice or pallor MDM MDM MDM Narrative Medical decision making narrative: Patient arrived to the ER slightly hypertensive but has a past medical history of this. Otherwise he is satting in the mid to high 90s on room air. History and exam is most consistent with viral URI but he could have infection secondary to COVID influenza RSV or potential pneumonia or pneumothorax. Therefore a viral swab was obtained as well as chest x-ray. Viral swab is negative for COVID influenza and RSV and chest x-ray revealed no obvious infiltrate or pneumothorax. After receiving a DuoNeb he did have improvement of his symptoms and his pulse ox remained in the high 90s on room air. Therefore with his overall negative workup and his symptoms he has a viral upper respiratory tract infection. However as he is not in respiratory distress or requiring supplemental oxygen there is no need for further intervention and he is otherwise safe for discharge. History & Record Review Discussion w/independent historian: Patient Radiography Diagnostic Testing: Clinical Impression(s) from Imaging Studies Chest X-Ray 11/10/24 00:50 IMPRESSION: No acute cardiopulmonary abnormality. [facility] Chest x-ray as interpreted by the emergency medicine physician reveals no acute infiltrate pneumothorax or pleural effusion Discharge Plan Triage Chief Complaint: Shortness of Breath ED Provider: Orville Herbert Dx/Rx/DC Orders Clinical Impression: Viral upper respiratory tract infection with cough, Hypertension Instructions: ED URI, Viral W/ Wheezing (Adult) Prescriptions: No Action prednisone 20 mg tablet 40 mg PO QDAY 5 Days Qty: 10 0RF acetaminophen 500 mg Tablet 1,000 mg PO Q8H PRN (Reason: fever or pain) Rx Instructions: Do not take more than 3000 mg Tylenol in a 24-hour period. ascorbic acid (vitamin C) [C-1000] 1,000 mg tablet 1 g PO DAILY Vitamin B-12 50 mcg lozenge 50 mcg PO DAILY cholecalciferol (vitamin D3) [Vitamin D3] 10 mcg (400 unit) capsule 10 mcg PO DAILY vitamin E 268 mg (400 unit) capsule 268 mg PO DAILY [place]-3 350 mg-235 mg- 90 mg-597 mg capsule,delayed release(DR/EC) 1 cap PO DAILY oxycodone 5 mg Tablet 5 - 10 mg PO Q4H PRN PRN (Reason: Pain Score 4-10) 7 Days Qty: 42 0RF Xarelto 10 mg Tablet 10 mg PO DAILY@0600 14 Days Qty: 14 0RF Rx Instructions: Take 2 weeks postoperatively for DVT prophylaxis. Primary Care Provider: Joana Yanes Referrals: Joana Yanes MD [Primary Care Provider] - Activity Restrictions/Additional Instructions: Your x-ray did not show pneumonia and your COVID influenza and RSV test was negative. Your symptoms and testing indicate that you have an upper respiratory tract infection which will last on average 18 to 21 days. Take the inhaler as directed to help with symptoms and continue [id number] medications. Return to the ER should you have any further concerns Print Language: [place] Disposition Disposition: Home, Self Care Discharge Date/Time: 11/10/24 02:00
[2024-11-10] MEDS: Albuterol Sulfate 8 gm Inhaler (60 puffs) 2 PUFF INHALATION (01:58)
== END 2024-11-10 02:00 | disposition home or self-care (01) ==
PROVIDERS: Emergency Provider Emergency Medicine; PCP Internal Medicine; Visit Provider Emergency Medicine
DX: J06.9 Acute upper respiratory infection, unspecified (principal); R06.02 Shortness of breath; Z11.52 Encounter for screening for COVID-19; I10 Essential (primary) hypertension; E78.00 Pure hypercholesterolemia, unspecified; Z79.01 Long term (current) use of anticoagulants; Z79.899 Other long term (current) drug therapy
CPT/HCPCS: 71046; 87631; 94640; 99282

== ENCOUNTER 2024-12-29 17:30 | Outpatient (RCR) | payer OTHER, SELFPAY ==
--- NOTE | 2024-12-14 16:24 | HP.PTEVAL_ITS ---
Patient's Visit Information Visit Information Visit Information: BARBIE ROBERTSON is a 54 year old M referred to Physical Therapy by Dr. Joana Yanes MD with a diagnosis of CHRISTINE- orthoitcs for foot achiness. Date of Evaluation: 12/14/24 Physical Therapist: Aki Fleming, SHERYL, OCS, CSCS Visit Plan Duration: 2 visits Plan: DPM orhtotics molded today and sent off, call patient when they come back for fitting, cutting and education on use of custom orthotics. Subjective Subjective: Feet hurt, R CHRISTINE months ago and feet have been worse since. Mushroom hunting was painful. has OTC orthoitcs which help but not completely and wear out quick. Also they slide around in his boots. Never had custom orthotics. Pain is in arches. Achy with walkign and sore with sitting. 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 Pain B foot pain arch: Pain Intensity (Out of 10): 1 Pain Intensity Range: 0 and 2 Comment: mild ache with ambulation Objective Objective: Walks into PT without antalgia today, achy but not painful. Transfers I chair and transfer. ankle and knee and hip aROM WFL. Feet biomechanics: pes cavus B feet with tenderness in arch, hindfoot is neutral. Metatarsals move well B. ankle aROM to 2 degree DF. B Goals Goal 1:: fit for and I in use of custom orthotics Goal Time Frame: 2-4 Weeks Rehabilitation Potential Physical Therapy Diagnosis: feet ache due to pes cavus Rehabilitation Potential: Good Anticipated Interventions Patient/Client Instruction: Educate patient on: Condition Other: orhtotics Orthotics: Shoe insert For the Purpose of:: To decrease pain Text: Thank you for the opportunity to evaluate your patient. For Medicare and Medicare HMO plans, please review the plan of care and approve it. It will need to be FAXED BACK to us at [phone] for Medicare purposes. For Medicare only, by signing this I certify the plan of care. Please let me know if there are questions or concerns regarding this plan of care. Physician Signature: Date:
--- NOTE | 2024-12-29 17:18 | HP.PTDCSUM ---
Discharge Summary D/C summary: It has been my pleasure to treat BARBIE ROBERTSON referred by Dr. Joana Yanes MD, with the diagnosis of CHRISTINE- orthoitcs for foot achiness for a total of 2 visit(s). Discharge Date: 12/29/24 Please see the following information for a summary of their discharge status. Subjective Subjective: Ready to get orthoitc s and giuve them a try. Pain B foot pain arch: Pain Intensity (Out of 10): 2 Objective Objective/Function: good feel and support in them on day one. Goals Goal 1:: fit for and I in use of custom orthotics Goal Progress: Goal Met Plan Plan: d/c to orthotic use. D/C Information d/c sentence: If there are questions or concerns regarding this patient's physical therapy, please feel free to call me at [phone]. Thank you for the referral of this patient. Sincerely, Aki Fleming, DPT, OCS, CSCS
== END 2024-12-29 19:00 | disposition home or self-care (01) ==
LOC: PT 17:30
PROVIDERS: PCP Internal Medicine; Referring Provider Internal Medicine; Visit Provider Internal Medicine
DX: Z96.641 Presence of right artificial hip joint (principal)
CPT/HCPCS: 97161; 97760; 97763

== ENCOUNTER → 2025-01-20 | Outpatient (CLI) | payer OTHER, SELFPAY ==
--- OUTSIDE RECORDS SUMMARY | 2025-01-20 07:25 | XMS RPT_ITS | CCD ---
Author Organization [facility] [place] Care Team Providers Care Junior Bookkeeper Name Role Phone Care Physician, No Primary Primary Care Provider Unavailable Care Physician, No Primary Referring Provider Un available Dr. Joana Yanes Attending Provider GILDARDO ROJAS, COLIN Prajapati Attending Unavailable GILDARDO ROJAS, COLIN Prajapati Attending Unavailable Dr. Joana Yanes Primary Care Provider Dr. Aki Martini Attending Provider Dr. Colin Ewing Referring Provider Dr. Joana Yanes Attending Provider [phone] Dr. Joana Yanes Referring Provider Dr. Joana Yanes Primary Care Provider Dr. Joana Yanes Attending Provider [phone] Dr. Joana Yanes Referring Provider Dr. Joana Yanes MD Primary Care Provider Dr. Joana Yanes MD Attending Provider Dr. Joana Yanes MD Referring Provider Dr. Colin Ewing MD Admit Provider Dr. Colin Ewing MD Attending Provider [phone] Colin Ewing MD Referring Provider Dr. Nell Hamilton MD Other Provider Caitlyn ROJAS, Dr. Jacoby Tuttle Other Provider Jyoti ROJAS, Dr. Lian Holloway Other Provider [phone] Gildardo ROJAS, Dr. Juárez Other Provider Sahil MANZANO, Dr. Becerra Other Provider Amando ROJAS, Dr. Thelma Win Attending Provider Jyoti ROJAS, Dr. Lian Holloway Attending Provider Mike VISITOR SERVICES TECHNICIAN-CLester Attending Provider Keon MANZANO, Dr. Jacinto Emergency Provider Joaquín ROJAS, Dr. Bernard Primary Care Provider Joaquín ROJAS, Dr. Bernard Referring Provider Keon MANZANO, Dr. Jacinto Attending Provider Joaquín ROJAS, Dr. Bernard Attending Provider Joaquín, Joana Referring Unavailable Kennedy Kaminski Attending Unavailable Joaquín, Joana Primary Care Unavailable Thelma Goel Attending Unavailable Hernan Baxter Consulting Unavailable Joaquín, Joana Primary Care Unavailable Gildardo, Colin Admitting Unavailable Gildardo, Colin Referring Unavailable Paintsil, Arcadia Consulting Unavailable Kotsonis, Jacoby F Consulting Unavailable Gildardo, Colin Consulting Unavailable Joaquín, Joana Primary Care Unavailable Richey, Joana Referring Unavailable Richey, Joana Attending Unavailable Joaquín, Joana Primary Care Unavailable Gildardo, Colin Referring Unavailable Jon Moreira Attending Unavailable Paintsil, Arcadia Consulting Unavailable Lian Montes Attending Unavailable Joaquín, Joana Primary Care Unavailable Gildardo, Colin Admitting Unavailable Gildardo, Colin Referring Unavailable Kotsonis, Jacoby F Consulting Unavailable Koram, Lian Amie Consulting Unavailable Gildardo, Colin Consulting Unavailable Hayden, Bay Referring Unavailable Bay Hayden Attending Unavailable Richey, Joana Primary Care Unavailable Richey, Joana Primary Care Unavailable Gildardo, Colin Attending Unavailable Gildardo, Colin Referring Unavailable Joaquín, Joana Primary Care Unavailable Joaquín, Joana Referring Unavailable Colin Oh Attending Unavailable Richey, Joana Primary Care Unavailable Orville Herbert Attending Unavailable Joaquín, Joana Primary Care Unavailable Colin Ewing Referring Unavailable Nilsa Crokcett Attending Unavailable Colin Ewing Consulting Unavailable Joaquín, Joana Primary Care Unavailable Paintsil, Arcadia Consulting Unavailable Colin Ewing Referring Unavailable Colin Ewing Attending Unavailable Colin Ewing Admitting Unavailable Jacoby Brady Consulting Unavailable Koram, Lian Amie Consulting Unavailable Colin Ewing Referring Unavailable Colin Ewing Attending Unavailable Richey, Joana Primary Care Unavailable Vazquez, Terrance Attending Unavailable Richey, Joana Primary Care Unavailable Richey, Joana Primary Care Unavailable Colin Ewing Attending Unavailable Gildardo, Colin Referring Unavailable Joaquín, Joana Referring Unavailable Joaquín, Joana Attending Unavailable Joaquín, Joana Primary Care Unavailable Spittle Jacoby Referring Unavailable SpittleGalileas Attending Unavailable Joaquín, Joana Primary Care Unavailable Nilsa Crockett Attending Unavailable Joaquín, Joana Primary Care Unavailable Colin Ewing Consulting Unavailable Colin Ewing Referring Unavailable Joaquín, Joana Referring Unavailable Roof Lester ROPER Attending Unavailable Richey, Joana Primary Care Unavailable Joaquín, Joana Referring Unavailable Richey, Joana Attending Unavailable Richey, Joana Primary Care Unavailable Medications Current Medications Medication Drug Class(es) Dates Sig (Normalized) Sig (Original) acetaminophen 500 mg oral tablet (6 sources) Start: 08-09-2024 End: 11-09-2024 Acetaminophen 500 mg Tablet Active 1000 mg PO Q8H as needed for fever or pain November 09, 2024 12:00am Do not take more than 3000 mg Tylenol in a 24-hour period. Ascorbic Acid (3 sources) Vitamin C Start: 07-12-2024 take 1 tablet by mouth once daily Ascorbic Acid (Vitamin C) (C-1000) 1,000 mg tablet Active 1 g PO DAILY July 12, 2024 1:00am cholecalciferol 0.01 mg oral capsule (3 sources) Vitamin D Start: 07-12-2024 take 1 capsule by mouth once daily Cholecalciferol (Vitamin D3) (Vitamin D3) 10 mcg (400 unit) capsule Active 10 ug PO DAILY July 12, 2024 1:00am ibuprofen 600 mg oral tablet (2 sources) Nonsteroidal Anti-inflammatory Drug Start: 04-29-2022 ibuprofen 600 mg oral tablet Dose : 600 mg = 1 tab(s), Oral, q6h, PRN for pain, Take with food or milk., # 40 tab(s), 0 Refill(s) Start Date: 04/29/22 Status: Ordered Zebulon 1-Ayy-Nfm-Fish Oil (Zebulon-3) 350 mg-235 mg- 90 mg-597 mg capsule,delayed release(DR/EC) (3 sources) Start: 07-12-2024 Zebulon 8-Qzd-Pcz-Fish Oil (Zebulon-3) 350 mg-235 mg- 90 mg-597 mg capsule,delayed release(DR/EC) Active 1 NMA PO DAILY July 12, 2024 1:00am vitamin b12 0.05 mg oral lozenge (3 sources) Vitamin B12 Start: 07-12-2024 take 50 ug by mouth once daily Cyanocobalamin (Vitamin B-12) (Vitamin B-12) 50 mcg lozenge Active 50 ug PO DAILY July 12, 2024 1:00am Vitamin D3 (2 sources) Start: 04-29-2022 Vitamin D3 Dose : 100 mcg = 1 tab(s), Oral, Daily, 0 Refill(s) Start Date: 04/29/22 Status: Ordered vitamin e 180 mg oral capsule (3 sources) Start: 07-12-2024 take 1 capsule by mouth once daily Vitamin E 268 mg (400 unit) capsule Active 268 mg PO DAILY July 12, 2024 1:00am Completed/Discontinued Medications Medication Drug Class(es) Dates Sig (Normalized) Sig (Original) [id number] actuat albuterol 0.09 mg/actuat metered dose inhaler (18 sources) beta2-Adrenergic Agonist Start: 01-02-2016 End: 02-19-2022 Albuterol Sulfate 1 INHALER inhaler Discontinued 1 - 2 NMA INHALATION EVERY 4 HOURS NEEDED as needed for Wheezing January 03, 2016 12:00am February 19, 2022 2:36pm Start: 01-02-2016 End: 02-19-2022 take 1 puff(s) by inhalation every four hours as needed Albuterol Sulfate Discontinued 1 - 2 PUFF INHALATION EVERY 4 HOURS NEEDED January 03, 2016 12:00am February 19, 2022 2:36pm amoxicillin 500 mg oral capsule (18 sources) Penicillin-class Antibacterial Start: 10-08-2020 End: 10-18-2020 take 2 capsules by mouth twice daily Amoxicillin 500 mg capsule Discontinued 1000 mg PO TWICE A DAY 40 October 08, 2020 1:00am October 17, 2020 12:00am October 18, 2020 12:02am Start: 10-08-2020 End: 10-18-2020 take 1000 mg by mouth twice daily Amoxicillin Discontinued 1000 MG PO TWICE A DAY 40 October 08, 2020 1:00am October 18, 2020 12:02am Start: 01-02-2016 End: 10-08-2020 take 1 tablet by mouth twice daily Amoxicillin 875 MG tablet Discontinued 875 mg PO TWICE A DAY January 02, 2016 12:00am October 08, 2020 11:14am atorvastatin 10 mg oral tablet (6 sources) HMG-CoA Reductase Inhibitor Start: 03-03-2024 End: 07-12-2024 take 1 tablet by mouth at bedtime Atorvastatin (Lipitor) 10 mg tablet Discontinued 10 mg PO AT BEDTIME June 13, 2024 10:54am July 12, 2024 9:06am azithromycin 250 mg oral tablet (12 sources) Macrolide Antimicrobial Start: 11-06-2024 End: 11-09-2024 Azithromycin (Zithromax Z-Trevor) 250 mg tablet Discontinued 0 PO .COMPLEX 6 November 06, 2024 12:00am November 09, 2024 11:50pm For 250 mg dose pack: take 500 mg today (day 1), then 250 mg for 4 days (days 2-5) PO Start: 01-03-2016 End: 10-08-2020 take 1 tablet by mouth once daily Azithromycin 250 MG tablet Discontinued 250 mg PO DAILY 4 January 03, 2016 12:00am October 08, 2020 11:14am Daytime Cold & Cough Liquid (9 sources) Start: 01-02-2016 End: 02-19-2022 take 1 mL by mouth every six hours as needed for congestion Daytime Cold & Cough Liquid Discontinued 30 mL PO EVERY 6 HOURS NEEDED as needed for Chest Congestion/Secretions January 02, 2016 12:00am February 19, 2022 2:36pm Start: 01-02-2016 End: 02-19-2022 take 1 mL by mouth every six hours as needed Daytime Cold & Cough Liquid Discontinued 30 ML PO EVERY 6 HOURS NEEDED January 01, 2016 11:00pm February 19, 2022 1:36pm Start: 01-02-2016 End: 02-19-2022 take 1 mL by mouth every six hours as needed Daytime Cold & Cough Liquid Discontinued 30 ML PO EVERY 6 HOURS NEEDED January 02, 2016 12:00am February 19, 2022 2:36pm docusate sodium 50 mg / sennosides, half-way 8.6 mg oral tablet (3 sources) Start: 08-09-2024 End: 11-09-2024 Sennosides-Docusate Sodium (Stimulant Laxative Plus) 8.6-50 mg Tablet Discontinued 2 {tbl} PO TWICE A DAY 12 August 09, 2024 1:00am November 09, 2024 11:56pm Take until first bowel movement, then as needed doxycycline monohydrate 100 mg oral capsule (6 sources) Tetracyclin e-class Drug Start: 08-09-2024 End: 11-06-2024 take 1 capsule by mouth twice daily Doxycycline Monohydrate 100 mg Capsule Discontinued 100 mg PO TWICE A DAY 28 August 09, 2024 1:00am November 06, 2024 9:05am Start: 06-13-2024 End: 07-12-2024 take 2 capsules by mouth once Doxycycline Monohydrate 100 mg capsule Discontinued 200 mg PO ONCE 2 June 13, 2024 1:00am July 12, 2024 9:06am famotidine 20 mg oral tablet (3 sources) Histamine-2 Receptor Antagonist Start: 08-09-2024 End: 11-09-2024 take 1 tablet by mouth once daily Famotidine 20 mg Tablet Discontinued 20 mg PO DAILY 30 August 09, 2024 1:00am November 09, 2024 11:56pm hydrocortisone 10 mg/ml / neomycin 3.5 mg/ml / polymyxin b [id number] unt/ml otic suspension (3 sources) Aminoglycoside Antibacterial, Polymyxin-class Antibacterial, Corticosteroid Start: 12-18-2023 End: 12-28-2023 Neomycin-Polymyxi n-Hc 3.5-10,000-1 mg/mL-unit/mL-% drops,suspension Discontinued 3 NMA OTIC Q4H 10 December 18, 2023 12:00am December 27, 2023 12:00am December 28, 2023 12:05am apply to (cotton) wick; replace wick every 24 hours ketorolac tromethamine 10 mg oral tablet (3 sources) Nonsteroidal Anti-inflammatory Drug, Cyclooxygenase Inhibitor Start: 04-03-2024 End: 07-12-2024 take 1 tablet by mouth every six hours Ketorolac 10 mg tablet Discontinued 10 mg PO EVERY 6 HOURS April 03, 2024 12:00am July 12, 2024 9:06am maximum total duration of 5 days from all oral, intranasal, or parenteral formulations lisinopril 5 mg oral tablet (5 sources) Angiotensin Converting Enzyme Inhibitor Start: 02-11-2023 End: 03-09-2023 take 1 tablet by mouth once daily Lisinopril 5 mg tablet Discontinued 5 mg PO DAILY February 11, 2023 12:00am March 09, 2023 10:00am losartan potassium 25 mg oral tablet (20 sources) Angiotensin 2 Receptor Buddy Start: 03-09-2023 End: 11-09-2024 take 1 tablet by mouth once daily Losartan 25 mg tablet Discontinued 25 mg PO DAILY June 13, 2024 10:54am November 09, 2024 11:56pm meclizine hydrochloride 25 mg oral tablet (9 sources) Antiemetic Start: 10-08-2020 End: 02-19-2022 take 1 tablet by mouth three times daily as needed for dizziness Meclizine 25 mg tablet Discontinued 25 mg PO THREE TIMES A DAY as needed for dizziness October 08, 2020 1:00am February 19, 2022 2:36pm as needed for ringing ears/ dizziness meloxicam 15 mg oral tablet (9 sources) Nonsteroidal Anti-inflammatory Drug Start: 08-08-2020 End: 02-19-2022 take 1 tablet by mouth once daily Meloxicam (Mobic) 15 mg tablet Discontinued 15 mg PO DAILY August 08, 2020 1:00am February 19, 2022 2:36pm do not take in conjunction with other NSAIDs. Tylenol is ok. oxyCODONE hydrochloride 5 mg oral tablet (3 sources) Opioid Agonist Start: 08-09-2024 End: 01-17-2025 take 5-10 mg by mouth every four hours as needed for pain Oxycodone 5 mg Tablet Discontinued 5 - 10 mg PO EVERY 4 HOURS NEEDED as needed for Pain Score 4-10 42 7 August 09, 2024 January 17, 2025 3:11pm predniSONE 20 mg oral tablet (8 sources) Start: 11-06-2024 End: 11-11-2024 take 2 tablets by mouth once daily Prednisone 20 mg tablet Discontinued 40 mg PO daily 10 November 06, 2024 12:00am November 10, 2024 12:00am November 11, 2024 12:09am Start: 11-10-2023 End: 12-18-2023 take 2 tablets by mouth once daily Prednisone 20 mg tablet Discontinued 40 mg PO DAILY November 10, 2023 12:00am December 18, 2023 8:33am Start: 11-10-2023 take 40 mg by mouth once daily Prednisone Active 40 MG PO DAILY November 10, 2023 12:00am rivaroxaban 10 mg oral tablet (11 sources) Factor Xa Inhibitor Start: 08-09-2024 End: 01-17-2025 take 1 tablet by mouth twice daily Rivaroxaban (Xarelto) 10 mg Tablet Discontinued 10 mg PO DAILY@0600 14 August 09, 2024 1:00am January 17, 2025 3:11pm Take 2 weeks postoperatively for DVT prophylaxis. Start: 06-18-2022 End: 08-19-2022 take 1-15 mg by mouth twice daily at mealtime, then take 1-20 mg by mouth once daily Rivaroxaban 15 mg (42)- 20 mg (9) tablets,dose pack Discontinued 0 PO .COMPLEX June 18, 2022 1:00am August 19, 2022 12:00pm take one-15 mg tablet twice daily for 21 days, then one-20 mg tablet once daily; must take with meal/food PO Start: 06-18-2022 End: 08-19-2022 take 1-15 mg by mouth twice daily at mealtime, then take 1-20 mg by mouth once daily Rivaroxaban Discontinued 0 PO .COMPLEX June 18, 2022 1:00am August 19, 2022 12:00pm take one-15 mg tablet twice daily for 21 days, then one-20 mg tablet once daily; must take with meal/food PO Start: 06-18-2022 End: 08-19-2022 take 1-15 mg by mouth twice daily at mealtime, then take 1-20 mg by mouth once daily Rivaroxaban Discontinued 0 PO .COMPLEX June 18, 2022 12:00am August 19, 2022 11:00am take one-15 mg tablet twice daily for 21 days, then one-20 mg tablet once daily; must take with meal/food PO Start: 06-18-2022 take 1-15 mg by mout h twice daily at mealtime, then take 1-20 mg by mouth once daily Rivaroxaban Active 0 PO .COMPLEX 51 June 18, 2022 12:00am take one-15 mg tablet twice daily for 21 days, then one-20 mg tablet once daily; must take with meal/food PO tiZANidine 2 mg oral capsule (6 sources) Central alpha-2 Adrenergic Agonist Start: 09-11-2022 End: 02-11-2023 take 1 capsule by mouth every eight hours as needed Tizanidine 2 mg capsule Discontinued 2 mg PO Q8H as needed for muscle spasticity September 11, 2022 1:00am February 11, 2023 8:33am Problems Active Problems Problem Classification Problem Date Documented Da te Episodic/Chronic Administrative/social admission (1 source) Persons encountering health services in other specified circumstances; Translations: [Other reasons for seeking consultation] Episodic Disorders of lipid metabolism (5 sources) Mixed hyperlipidemia; Translations: [Mixed hyperlipidemia] Chronic E Codes: Natural/environment (3 sources) Tick bite; Translations: [Bitten or stung by nonvenomous insect and other nonvenomous arthropods, initial encounter] 07-12-2024 Episodic Essential hypertension (13 sources) Hypertensive disorder; Translations: [Essential (primary) hypertension] 02-19-2022 Chronic Comment on above: CONTROLLED WITH MED Osteoarthritis (4 sources) Arthritis; Translations: [Unspecified osteoarthritis, unspecified site] Onset: 08-17-2024 12-18-2023 Chronic Other circulatory disease (2 sources) Other specified symptoms and signs involving the circulatory and respiratory systems; Translations: [Other symptoms involving respiratory system and chest] 11-10-2023 Episodic Other connective tissue disease (4 sources) History of total hip arthroplasty; Translations: [Presence of right artificial hip joint] 08-09-2024 Chronic Other connective tissue disease (2 sources) Presence of right artificial hip joint; Translations: [Presence of right artificial hip joint] Onset: 08-09-2024 Chronic Other connective tissue disease (3 sources) Synovitis of hip; Translations: [Synovitis of right hip] 2024 Episodic Other ear and sense organ disorders (3 sources) Acute otitis externa; Translations: [Diffuse otitis externa, left ear] 12-18-2023 Episodic Other gastrointestinal disorders (2 sources) Dysphagia, unspecified; Translations: [Dysphagia, unspecified] 11-10-2023 Episodic Other lower respiratory disease (1 source) Shortness of breath; Translations: [Shortness of breath] Onset: 11-15-2024 Episodic Other nervous system disorders (1 source) Other chronic pain; Translations: [Other chronic pain] Onset: 06-04-2024 Chronic Other non-traumatic joint disorders (2 sources) Other specific joint derangements of right hip, not elsewhere classified; Translations: [Other specific joint derangements of right hip, not elsewhere classified] Onset: 04-16-2024 Chronic Other non-traumatic joint disorders (9 sources) Shoulder pain; Translations: [Pain in right shoulder] 02-19-2022 Episodic Other non-traumatic joint disorders (1 source) Pain in right shoulder; Translations: [Pain in joint, shoulder region] Episodic Other non-traumatic joint disorders (6 sources) Hip pain; Translations: [Pain in right hip] 03-28-2024 Episodic Other screening for suspected conditions (not mental disorders or infectious disease) (1 source) Encounter for screening for cardiovascular disorders; Translations: [Screening for other and unspecified cardiovascular conditions] Episodic Other upper respiratory infections (10 sources) Viral upper respiratory tract infection; Translations: [Acute upper respiratory infection, unspecified] Onset: 11-06-2024 11-10-2024 Episodic Residual codes; unclassified (2 sources) Immunization not carried out because of patient refusal; Translations: [Vaccination not carried out because of patient refusal] 11-10-2023 Episodic Residual codes; unclassified (1 source) Medication refused; Translations: [Immunization not carried out because of patient refusal] 07-19-2024 Episodic Sprains and strains (3 sources) Acetabular labrum tear; Translations: [Other sprain of right hip, initial encounter] 2024 Episodic Past or Other Problems Problem Classification Problem Date Documented Da te Episodic/Chronic Abdominal pain (5 sources) Left lower quadrant pain; Translations: [Abdominal pain, left lower quadrant] Onset: 03-11-2024 08-19-2022 Episodic Other non-traumatic joint disorders (5 sources) Pain in left shoulder; Translations: [Left shoulder pain] Onset: 06-04-2024 05-06-2024 Episodic Other non-traumatic joint disorders (2 sources) Pain in right hip; Translations: [Pain in right hip] Onset: 04-26-2024 Episodic Phlebitis; thrombophlebitis and thromboembolism (6 sources) Acute embolism and thrombosis of unspecified deep veins of left lower extremity; Translations: [Acute venous embolism and thrombosis of unspecified deep vessels of lower extremity] Onset: 08-09-2024 08-19-2022 Episodic Spondylosis; intervertebral disc disorders; other back problems (1 source) Spinal stenosis, lumbar region without neurogenic claudication; Translations: [Spinal stenosis, lumbar region without neurogenic claudication] Onset: 02-15-2024 Episodic Results Test Name Value Interpretation Reference Range Facility Internal Medicine Office Vis [facility] 01-16-2025 Internal Medicine Office Visit [facility] [address] [place] [address] OFFICE VISIT Date of Service: 01/17/25 MR#: [id number] Acct: [id number] Name: BARBIE CAPUTO Rep #: [id number] : 1970 Provider: Dr. Joana pineda MD Age/Sex: 54/M Location[place] [facility] Status: Signed Intake Vital Signs 07/19/24 14:16 11/09/24 23:50 01/17/25 14:56 01/17/25 15:47 Height 5 ft 11 in 5 ft 11 in 5 ft 11 in Weight: 259 lb 6 oz BMI 36.1 BP 138/80 H 136/82 H Blood Pressure Location Rt brachial Lt brachial Position Sitting Sitting Respiration 16 Pulse 89 Pulse Source Monitor Temp 96.1 F L Temp Source Temporal Pulse Oximetry (%) 94 Oxygen Delivery Method room air Oxygen Flow Rate (L/min) [address] Yanes aware Intake Visit Reasons: 6 M FU Chief Complaint: fu Desktop Analyst Required: No Accompanied by: Self Is patient in pain?: No Allergies No Known Allergies Allergy (Verified 01/17/25 14:50) Medications ???Medication ???Instructions ???Recorded ???Confirmed ???Type ascorbic acid (vitamin C) 1,000 mg 1 g PO DAILY 07/12/24 01/17/25 H istory tablet (C-1000) cholecalciferol (vitamin D3) 10 10 mcg PO DAILY 07/12/24 01/17/25 History mcg (400 unit) capsule (Vitamin D3) cyanocobalamin (vitamin B-12) 50 50 mcg PO DAILY 07/12/24 01/17/25 History mcg lozenges (Vitamin B-12) omega 3 350 mg-dha 235 mg-epa 90 1 cap PO DAILY 07/12/24 01/17/25 H istory mg-fish oil 597 mg capsule,delay rel (Zebulon-3) vitamin E 268 mg (400 unit) capsule 268 mg PO DAILY 07/12/24 History acetaminophen 500 mg tablet 1,000 mg PO Q8H PRN fever or pain 11/09/24 01/17/25 History losartan 25 mg tablet 25 mg PO DAILY #90 tabs 01/17/25 0 01/17/25 Rx Nurse's Note: c/o sore throat PFSH Medical History (Updated 01/17/25 @ 15:[address] Joana Yanes MD) Tick bite Alcohol use History of steroid therapy Arthritis High cholesterol Back pain Non-smoker History of pain when walking DVT (deep venous thrombosis) History of echocardiogram History of stress test COVID Hypertension Surgical History (Updated 01/17/25 @ 15:[address] Joana Yanes MD) Status post total hip replacement, right History of right shoulder replacement H/O hernia repair H/O: knee surgery Family History Mother Cancer bladder with mets Grandfather Cancer Grandfather Cancer Social History (Updated 01/17/25 @ 15:[address] Joana Yanes MD) household members: spouse and children number of children: 2 current occupational status: employed current occupation: [employer] Smoking Status: Never smoker Electronic Cigarette Use: not used alcohol intake: current alcohol intake frequency: a few times a week Alcohol type: beer substance use type: does not use what type of physical activity do you participate in: walking frequency: daily do you feel safe at home: Yes Questionnaire PQH-9 BMS Over the last 2 weeks, how often have you been bothered by any of the following problems? 1. Little interest or pleasure in doing things: not at all 2. Feeling down, depressed, or hopeless: not at all 3. Trouble falling or staying asleep, or sleeping too much: several days (due to pain) 4. Feeling tired or having little energy: several days 5. Poor appetite or overeating: not at all 6. Feeling bad about yourself - or that you are a failure or have let yourself and your family down: not at all 7. Trouble concentrating on things, such as reading the newspaper or watching television: not at all 8. Moving or speaking so slowly that other people could have noticed? - Or the opposite - being so fidgety or restless that you have been moving around a lot more than usual: not at all 9. Thoughts that you would be better off or of hurting yourself in some way: not at all Total score: 2 If you checked off any problems, how difficult have these problems made it for you to do your work, take care of things at home, or get along with other people?: not difficult at all Source: Developed by Drs. Rob Cevallos, Dede Medina, Oliverio Man and colleagues, with an educational peter from [employer]. [facility] Chief Complaint: fu Details: BARBIE CAPUTO, is a 54 M who presents to the office today for a follow up. He is up to date on his routine blood work and screening. He will be due for a repeat cologuard in March. He doesn't know if he has had his shingles vaccines. He states he will research it first. He doesn't smoke and does need refills. He reports he is eating healthy, but eats too much. He is trying to stay active. The patient hasn't checked his blood pressure at home recently, but states at other provider's office visits, it is similar to today's reading. He states he is taking his medi (more content not included)... Normal [facility] PT D/C Summary (1)on 025 PT D/C Summary (1) [facility] Physical Therapy [facility] [address] [place] [address] / REHABILITATION SERVICES DISCHARGE SUMMARY MR#: [id number] Acct: [id number] Name: BARBIE CAPUTO Rep #: [id number] : 1970 54 From: Aki Fleming DPT, OCS, CSCS Referring Dr.: Dr. Joana Yanes MD Status: R EG RCR Insurance: [facility] SELF PAY INSURANCE Discharge Summary D/C summary: It has been my pleasure to treat BARBIE CAPUTO referred by Dr. Joana Yanes MD, with the diagnosis of CHRISTINE- orthoitcs for foot achiness for a total of 2 visit(s). Discharge Date: 12/29/24 Please see the following information for a summary of their discharge status. Subjective Subjective: Ready to get orthoitc s and giuve them a try. Pain B foot pain arch: Pain Intensity (Out of 10): 2 Objective Objective/Function: good feel and support in them on day one. Goals Goal 1:: fit for and I in use of custom orthotics Goal Progress: Goal Met Plan Plan: d/c to orthotic use. D/C Information d/c sentence: If there are questions or concerns regarding this patient's physical therapy, please feel free to call me at [phone]. Thank you for the referral of this patient. Sincerely, Aki Fleming DPT, OCS, CSCS 12/29/24 1718 CC: Dr. Joana Yanes MD EBG Signed Normal [facility] Inital Evaluation (1) - PTon 12-14-2024 Inital Evaluation (1) - PT [facility] [address] [place] [address]. [address] [place] [address] / REHABILITATION SERVICES INITIAL EVALUATION MR#: [id number] Acct: [id number] Name: BARBIE CAPUTO Rep #: [id number] : 1970 54 From: Aki Fleming DPT, OCS, CSCS Referring Dr.: Dr. Joana Yanes MD Status: R EG RCR Insurance: [facility] SELF PAY INSURANCE Patient's Visit Information Visit Information Visit Information: BARBIE CAPUTO is a 54 year old M referred to Physical Therapy by Dr. Joana Yanes MD with a diagnosis of CHRISTINE- orthoitcs for foot achiness. Date of Evaluation: 12/14/24 Physical Therapist: Aki Fleming, HAYLEYT, OCS, CSCS Visit Plan Duration: 2 visits Plan: DPM orhtotics molded today and sent off, call patient when they come back for fitting, cutting and education on use of custom orthotics. Subjective Subjective: Feet hurt, R CHRISTINE months ago and feet have been worse since. Mushroom hunting was painful. has OTC orthoitcs which help but not completely and wear out quick. Also they slide around in his boots. Never had custom orthotics. Pain is in arches. Achy with walkign and sore with sitting. 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 Pain B foot pain arch: Pain Intensity (Out of 10): 1 Pain Intensity Range: 0 and 2 Comment: mild ache with ambulation Objective Objective: Walks into PT without antalgia today, achy but not painful. Transfers I chair and transfer. ankle and knee and hip aROM WFL. Feet biomechanics: pes cavus B feet with tenderness in arch, hindfoot is neutral. Metatarsals move well B. ankle aROM to 2 degree DF. B Goals Goal 1:: fit for and I in use of custom orthotics Goal Time Frame: 2-4 Weeks Rehabilitation Potential Physical Therapy Diagnosis: feet ache due to pes cavus Rehabilitation Potential: Good Anticipated Interventions Patient/Client Instruction: Educate patient on: Condition Other: orhtotics Orthotics: Shoe insert For the Purpose of:: To decrease pain Text: Thank you for the opportunity to evaluate your patient. For Medicare and Medicare HMO plans, please review the plan of care and approve it. It will need to be FAXED BACK to us at [phone] for Medicare purposes. For Medicare only, by signing this I certify the plan of care. Please let me know if there are questions or concerns regarding this plan of care. Physician Signature: D ate: 12/14/24 1629 CC: Dr. Joana Yanes MD EBG Signed Normal [facility] Inital Evaluation (1) - PT [facility] Therapy [facility] [address] [place] [address] / REHABILITATION SERVICES INITIAL EVALUATION MR#: [id number] Acct: [id number] Name: BARBIE CAPUTO Rep #: [id number] : 1970 54 From: Aki Fleming DPT, OCS, CSCS Referring Dr.: Dr. Joana Yanes MD Status: R EG RCR Insurance: [facility] SELF PAY INSURANCE Patient's Visit Information Visit Information Visit Information: BARBIE CAPUTO is a 54 year old M referred to Physical Therapy by Dr. Joana Yanes MD with a diagnosis of CHRISTINE- orthoitcs for foot achiness. Date of Evaluation: 12/14/24 Physical Therapist: Aki Fleming DPT, PRINCESS, CSCS Visit Plan Duration: 2 visits Plan: DPM orhtotics molded today and sent off, call patient when they come back for fitting, cutting and education on use of custom orthotics. Subjective Subjective: Feet hurt, R CHRISTINE months ago and feet have been worse since. Mushroom hunting was painful. has OTC orthoitcs which help but not completely and wear out quick. Also they slide around in his boots. Never had custom orthotics. Pain is in arches. Achy with walkign and sore with sitting. 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 Pain B foot pain arch: Pain Intensity (Out of 10): 1 Pain Intensity Range: 0 and 2 Comment: mild ache with ambulation Objective Objective: Walks into PT without antalgia today, achy but not painful. Transfers I chair and transfer. ankle and knee and hip aROM WFL. Feet biomechanics: pes cavus B feet with tenderness in arch, hindfoot is neutral. Metatarsals move well B. ankle aROM to 2 degree DF. B Goals Goal 1:: fit for and I in use of custom orthotics Goal Time Frame: 2-4 Weeks Rehabilitation Potential Physical Therapy Diagnosis: feet ache due to pes cavus Rehabilitation Potential: Good Anticipated Interventions Patient/Client Instruction: Educate patient on: Condition Other: orhtotics Orthotics: Shoe insert For the Purpose of:: To decrease pain Text: Thank you for the opportunity to evaluate your patient. For Medicare and Medicare HMO plans, please review the plan of care and approve it. It will need to be FAXED BACK to us at [phone] for Medicare purposes. For Medicare only, by signing this I certify the plan of care. Please let me know if there are questions or concerns regarding this plan of care. Physician Signature: D ate: 12/14/24 1624 CC: Dr. Joana Yanes MD EBG Signed Normal [facility] Chest PA and Lateralon 11-10 Chest PA and L[address] [facility] Services [address] [place] [id number] Chest PA and Lateral MR#: [id number] Acct: [id number] Name: BARBIE CAPUTO Rep #: [id number] : 1970 M 54 From: Marija Suarez MD PCP: Dr. Joana Yanes MD Status: REG ER Study: Chest PA and Lateral Date of Exam: 11/10/24 Exam# [id number] Ordering Dr: Orville Herbert DO PROCEDURE: CHEST PA AND LATERAL 11/09/2024 REASON FOR EXAM: COUGH TECHNIQUE: Frontal and lateral views of the chest. COMPARISON: None available FINDINGS: Hardware: None Heart: Cardiomediastinal silhouette is within normal limits. Normal pulmonary vascularity. Mediastinum: Unremarkable Lungs: No focal consolidation Bones: No acute fractures. RAD/Chest PA and Lateral IMPRESSION: No acute cardiopulmonary abnormality. Reading Location: [id number] CC: Dr. Joana Yanes MD; Orville Herbert DO Director Hris: Signed Normal [facility] Emergency Department Summary on 11-10-2024 Emergency Department Summary [facility] Medical Records Department [address] [place] [address] Emergency Department Summary 11/10/24 MR#: [id number] Acct: [id number] Name: BARBIE CAPUTO Rep #: [id number] : 1970 54 From: Orville Herbert DO PCP: Dr. Joana Yanes MD Status:DEP ER Location: ED HPI History of Present Illness Chief Complaint: Shortness of Breath Informant: patient Narrative Narrative: Patient is a 54-year-old male with past medical history of hypertension. He states there has been multiple sick contacts at work. He reports that over the last 10 days he has had persistent congestion cough and shortness of breath sensation. He states he went to an urgent care and was given a Z-Trevor and steroids and has been taking these as directed. However he feels there has been no symptom improvement. He is concerned he may have developed pneumonia or have a viral infection such as COVID and therefore comes in for evaluation. [facility] Medical History Alcohol use History of steroid therapy Arthritis High cholesterol Back pain Non-smoker History of pain when walking DVT (deep venous thrombosis) History of echocardiogram History of stress test COVID Hypertension Home Medications ???Medication ???Instructions ???Recorded ???Last Taken ???Type ascorbic acid (vitamin C) 1,000 mg 1 g PO DAILY 07/12/24 Unknown Hi story tablet (C-1000) cholecalciferol (vitamin D3) 10 10 mcg PO DAILY 07/12/24 Unknown H istory mcg (400 unit) capsule (Vitamin D3) cyanocobalamin (vitamin B-12) 50 50 mcg PO DAILY 07/12/24 Unknown H istory mcg lozenges (Vitamin B-12) omega 3 350 mg-dha 235 mg-epa 90 1 cap PO DAILY 07/12/24 Unknown Hi story mg-fish oil 597 mg capsule,delay rel (Zebulon-3) vitamin E 268 mg (400 unit) capsule 268 mg PO DAILY 07/12/24 Unknow n History oxycodone 5 mg tablet 5 - 10 mg (1 - 2 x 5 mg) PO Q4H Unknown Rx PRN PRN Pain Score 4-10 7 days #42 tabs rivaroxaban 10 mg tablet (Xarelto) 10 mg PO DAILY@0600 14 days #14 08/09/24 Unknown Rx tabs prednisone 20 mg tablet 40 mg (2 x 20 mg) PO QDAY 5 days 0 11/06/24 Unknown Rx #10 tabs acetaminophen 500 mg tablet 1,000 mg PO Q8H PRN fever or pain 11/09/24 Unknown History Allergy/AdvReac Type Severity Reaction Status Date / Time No Known Allergies Allergy Verified 11/09/24 23:50 Family History Mother Cancer bladder with mets Grandfather Cancer Grandfather Cancer Surgical History History of right shoulder replacement H/O hernia repair H/O: knee surgery Social History household members: spouse and children number of children: 2 current occupational status: employed current occupation: [employer] Smoking Status: Never smoker Electronic Cigarette Use: not used alcohol intake: current alcohol intake frequency: a few times a week Alcohol type: beer substance use type: does not use what type of physical activity do you participate in: walking frequency: daily do you feel safe at home: Yes ROS ROS ED Constitutional Constitutional ED: Denies chills or fever(s) ENT ENT ED: Reports rhinorrhea and sore throat Cardiovascular Cardiovascular: Denies chest pain Respiratory/Chest Respiratory/Chest: Reports cough and dyspnea Gastrointestinal Gastrointestinal: Denies abdominal pain, diarrhea, nausea or vomiting Genitourinary Genitourinary ED: Denies dysuria Musculoskeletal Musculoskeletal: Denies myalgias Integumentary Denies rash Neurologic Neurologic: Denies headache(s) Hematologic/Lymphati c Hematologic/Lymphati c: Denies easy bleeding or easy bruising Allergic/Immunologic Allergic/Immunologic ED: Denies mouth swelling, tongue swelling or urticaria EXAM Physical Exam Const Vital Signs: 11/09/24 23:50 11/09/24 23:50 11/09/24 23:55 Temperature 98.4 F 98.4 F Temperature Source Oral Oral Pulse Rate 94 91 Respiratory Rate 22 H 22 H Respiratory Effort Short of Breath Respiratory Depth Deep Respiratory Pattern Tachypnea Blood Pressure 136/85 H 136/85 H Blood Pressure Mean 102 102 Pulse Ox 96 97 Oxygen Delivery Method Room Air Room Air Room Air 11/10/24 00:38 Temperature Temperature Source Pulse Rate 98 Respiratory Rate 18 Respiratory Effort Respiratory Depth Respiratory Pattern Normal Blood Pressure Blood Pressure Mean Pulse Ox Oxygen Delivery Method Positive well nourished and well developed General Appearance ED: well developed; Negative for pallor HEENT HEENT Narrative: Nasal mucosa is hyperemic and boggy There is cobblestonin (more content not included)... Normal [facility] Influenza virus A and B and SARS-CoV-2 (COVID-19) and Respiratory syncytial virus RNAOrdered By: Orville Herbert on 11-10-2024 SARS-CoV-2 (COVID-19) RNA ANDREW+probe Ql (Unsp spec) [facility] M100.678on 11-10-2024 M100.678 SARS-CoV-2 (COVID 19) Negative INFLUENZA A Negative INFLUENZA B Negative RSV PCR Negative Normal [facility] Comment on above: Performed By: #### M 100.678 ####[facility] [id number] [place], [place], [id number] Urgent Care Visit Reporton 0 11-06-2024 Urgent Care Visit Report [facility] [address], [address] [place], [place] [address] OFFICE VISIT Date of Service: 11/06/24 MR#: [id number] Acct: [id number] Name: BARBIE CAPUTO Rep #: [id number] : 1970 Provider: JAYSHREE tuttle Age/Sex: 54/M Location: [facility] Status: Signed Intake Vital Signs 08/08/24 15:27 11/06/24 09:04 Height 5 ft 11 in BP 142/82 H Blood Pressure Location Lt brachial Position Sitting Respiration 16 Pulse 71 Pulse Source NIBP Temp 98.1 F Temp Source Oral Pulse Oximetry (%) 94 Oxygen Delivery Method room air Intake Visit Reasons: CHEST CONGESTION Chief Complaint: chest congest, cough, fatigue, mucus Desktop Analyst Required: No Is patient in pain?: No Allergies No Known Allergies Allergy (Verified 11/06/24 09:05) Medications ???Medication ???Instructions ???Recorded ???Confirmed ???Type losartan 25 mg tablet 25 mg PO DAILY #90 tabs 06/13/24 1 09/19/23 Rx ascorbic acid (vitamin C) 1,000 mg 1 g PO DAILY 07/12/24 07/19/24 H istory tablet (C-1000) cholecalciferol (vitamin D3) 10 10 mcg PO DAILY 07/12/24 07/19/24 History mcg (400 unit) capsule (Vitamin D3) cyanocobalamin (vitamin B-12) 50 50 mcg PO DAILY 07/12/24 07/19/24 History mcg lozenges (Vitamin B-12) omega 3 350 mg-dha 235 mg-epa 90 1 cap PO DAILY 07/12/24 07/19/24 H istory mg-fish oil 597 mg capsule,delay rel (Zebulon-3) vitamin E 268 mg (400 unit) capsule 268 mg PO DAILY 07/12/24 History acetaminophen 500 mg tablet 1,000 mg (2 x 500 mg) PO Q8H 14 Rx days #84 tabs famotidine 20 mg tablet 20 mg PO DAILY 30 days #30 tabs Rx oxycodone 5 mg tablet 5 - 10 mg (1 - 2 x 5 mg) PO Q4H Rx PRN PRN Pain Score 4-10 7 days #42 tabs rivaroxaban 10 mg tablet (Xarelto) 10 mg PO DAILY@0600 14 days #14 08/09/24 Rx tabs sennosides 8.6 mg-docusate sodium 2 tab PO BID 3 days #12 tabs 02/24 Rx 50 mg tablet (Stimulant Laxative Plus) azithromycin 250 mg tablet See Rx Instructions PO .COMPLEX #6 11/06/24 11/06/24 Rx (Zithromax Z-Trevor) tabs prednisone 20 mg tablet 40 mg (2 x 20 mg) PO QDAY 5 days 0 11/06/24 11/06/24 Rx #10 tabs Have you fallen in the past year?: No Nurse's Note: chest congest, cough, fatigue, mucus for over 5 days. denies fever. [facility] Medical History Alcohol use History of steroid therapy Arthritis High cholesterol Back pain Non-smoker History of pain when walking DVT (deep venous thrombosis) History of echocardiogram History of stress test COVID Hypertension Surgical History History of right shoulder replacement H/O hernia repair H/O: knee surgery Family History Mother Cancer bladder with mets Grandfather Cancer Grandfather Cancer Social History household members: spouse and children number of children: 2 current occupational status: employed current occupation: [employer] Smoking Status: Never smoker Electronic Cigarette Use: not used alcohol intake: current alcohol intake frequency: a few times a week Alcohol type: beer substance use type: does not use what type of physical activity do you participate in: walking frequency: daily do you feel safe at home: Yes HPI HPI Chief Complaint: chest congest, cough, fatigue, mucus Details: BARBIE CAPUTO, is a 54 M who presents to the office today for concerns regarding upper respiratory symptoms that include cough, nasal congestion, and nasal drainage. He also notices chest congestion. He is concerned that others at work have been diagnosed with pneumonia. His symptoms been ongoing for 5 days and worsening. He has been taking OTC medication with some relieve. ROS Const Constitutional: Positive for fatigue; No body ache, chills, fever(s), headache(s) or change in appetite Eyes Eyes: No blurry vision, change in vision, double vision, irritation, discharge, vision loss, dry eyes, bulging eyes, floaters, visual disturbances, eye pain, Light sensitivity, spots in vision, tunnel vision or other ENT ENT: Positive for nasal congestion and nasal discharge; No ear or mastoid pain, ear discharge, ear pressure, tinnitus, dizziness/vertigo, nosebleed/epistaxis, nose pain, sinus pressure, sinus pain, post nasal drip, headache(s), facial pain, dental pain, difficulty swallowing, bad breath, hoarseness, lip swelling, mouth lesions, mouth pain, neck pain, sore throat, tongue swelling or throat swelling Resp Respiratory: Positive for chest congestion and wheezing (night time); No cough, change in phlegm color, hemoptysis, pain on inspiration, shortne (more content not included)... Normal [facility] Basic Metabolic Profile (BMP )on 08-09-2024 BUN/CRE 16.7 RATIO Normal 10-20 [facility] Comment on above: Performed By: #### L 500.2500, L100.0500 #### [facility] [address] [place], [address] CA,Total 8.9 mg/dL Normal 8.5-10.1 [facility] Comment on above: Performed By: #### L 500.2500, L100.0500 #### [facility] [address] [place], [address] Chloride [Moles/Vol] 106 mmol/L Normal 98-107 [facility] Comment on above: Performed By: #### L 500.2500, L100.0500 #### [facility] [address] [place], [address] CO2 [Moles/Vol] 23.0 mmol/L Normal 21.0-32.0 [facility] Comment on above: Performed By: #### L 500.2500, L100.0500 #### [facility] [address] [place], [address] Creatinine [Mass/Vol] 1.02 mg/dL Normal 0.70-1.[address] [facility] Comment on above: Result Comment: The validity of the calculated GFR GFRAA in patients over 70 years has not been determined. Clinical correlation is essential. Performed By: #### L 500.2500, L100.0500 #### [facility] [address] [place] [place], [address] ECRCL 108.16 ml/min Normal [facility] Comment on above: Performed By: #### L 500.2500, L100.0500 #### [facility] [address] [place], [address] EST GFR - AA 98 mL/min Normal >60 [facility] Comment on above: Result Comment: Afri can [place] GFR Calc Performed By: #### L 500.2500, L100.0500 #### [facility] [address] [place], [address] GAP 6 Normal 5-15 [facility] Comment on above: Performed By: #### L 500.2500, L100.0500 #### [facility] [address] [place], [address] GFR/1.73 sq M.predicted among non-blacks MDRD (S/P/Bld) [Vol rate/Area] 81 mL/min/{1.73_m2} Normal >60 [facility] Comment on above: Result Comment: Non- GFR Calc Performed By: #### L 500.2500, L100.0500 #### [facility] [address] [place], [address] Glucose [Mass/Vol] 243 mg/dL High 74-106 [facility] Comment on above: Result Comment: Gluc ose result greater than or equal to 200 mg/dL suggests DIABETES MELLITUS per A.D.A. criteria. Performed By: #### L 500.2500, L100.0500 #### [facility] [address] [place], [address] Potassium [Moles/Vol] 4.4 mmol/L Normal 3.5-5.[address] [facility] Comment on above: Performed By: #### L 500.2500, L100.0500 #### [facility] [address] [place], [address] Sodium [Moles/Vol] 135 mmol/L Low 136-145 [facility] Comment on above: Performed By: #### L 500.2500, L100.0500 #### [facility] [address] [place], [address] Urea nitrogen [Mass/Vol] 17 mg/dL Normal 7-18 [facility] Comment on above: Performed By: #### L 500.2500, L100.0500 #### [facility] [address] [place], [address] Blood urea nitrogen (BUN)/cr eatinine ratioOrdered By: Colin Ewing on 08-09-2024 Urea nitrogen/Creatinine [Mass ratio] 16.7 mg/mg 10-20 [facility] CBC-Complete Blood Cnt No Di ffon 08-09-2024 Erythrocyte distribution width (RBC) [Ratio] 12.0 % Normal 11.6-14.6 [facility] Comment on above: Performed By: #### L 500.2500, L100.0500 #### [facility] [address] [place], [address] Hematocrit (Bld) [Volume fraction] 39.8 % Low 40-54 [facility] Comment on above: Performed By: #### L 500.2500, L100.0500 #### [facility] [address] [place], [address] Hemoglobin (Bld) [Mass/Vol] 13.3 g/dL Normal 13.0-16.5 [facility] Comment on above: Performed By: #### L 500.2500, L100.0500 #### [facility] [address] [place], [address] MCH (RBC) [Entitic mass] 30.9 pg Normal 27.0-32.0 [facility] Comment on above: Performed By: #### L 500.2500, L100.0500 #### [facility] [address] [place], [address] MCHC (RBC) [Mass/Vol] 33.4 g/dL Normal 32-[address] [facility] Comment on above: Performed By: #### L 500.2500, L100.0500 #### [facility] [address] [place], [address] MCV (RBC) [Entitic vol] 92.6 fL Normal 80-94 [facility] Comment on above: Performed By: #### L 500.2500, L100.0500 #### [facility] [address] [place], [address] Platelet mean volume (Bld) [Entitic vol] 9.3 fL Normal 6.2-12.0 [facility] Comment on above: Performed By: #### L 500.2500, L100.0500 #### [facility] [address] [place], [address] Platelets (Bld) [#/Vol] 279 10*3/uL Normal 150-450 [facility] Comment on above: Performed By: #### L 500.2500, L100.0500 #### [facility] [address] [place], [address] RBC (Bld) [#/Vol] 4.30 10*6/uL Low 4.6-6.2 [facility] Comment on above: Performed By: #### L 500.2500, L100.0500 #### [facility] [address] [place], [address] RDW SD 40.9 fl Normal 35.1-43.9 [facility] Comment on above: Performed By: #### L 500.2500, L100.0500 #### [facility] [address] [place], [address] WBC (Bld) [#/Vol] 17.1 10*3/uL High 4.4-11.0 [facility] Comment on above: Performed By: #### L 500.2500, L100.0500 #### [facility] [address] [place], [address] Carbon dioxide measurementOr dered By: Colin Ewing on 08-09-2024 CO2 [Moles/Vol] 23.0 mmol/L 21.0-32.0 [facility] Chloride measurementOrdered By: Colin Ewing on 08-09-2024 Chloride [Moles/Vol] 106 mmol/L 98-107 [facility] Discharge Instructionon Discharge Instruction [facility] Medical Records Department [address] [place] [address] Instructions for Home/Discharge Instructions 08/09/24 0810 MR#: [id number] Acct: [id number] Name: BARBIE CAPUTO Rep #: [id number] : 1970 54 From: Delvin JOLLY PA-C PCP: Dr. Joana Yanes MD Status:ADM RINKU Discharge Instructions Diet Discharge Diet: No restrictions DC O2, CPAP, BIPAP needs Home O2 Discharge instructions: No Dressing / Incision Discharge Activity: May Not Drive (No driving for 6 weeks postoperatively. Must also be off all narcotics and able to walk 100 feet without the use of cane or walker.) May shower in (days): 1 (only if incision is dry and without drainage. Do NOT soak/submerge in tub/pool/to/stream /hot tub.)) Ice area for (Minutes): 20 (Every 1-2 hours while awake. Please place barrier between ice and skin.) Weight Bearing Status: Weight bearing as tolerated Keep extremity elevated above heart level: Operative Extremity Additional Activity Instructions:: Follow [facility] Post-op Instructions. Once postoperative dressing has been removed only use gentle soap and water over the incision. Do not use any ointments, Neosporin, salves, alcohol pads over the incision for 6 weeks postoperatively. Do not submerge underwater for 6 weeks postoperatively. Wear elastic stockings for 2 weeks. Do NOT use alcohol with narcotic pain medication. Do NOT make important decisions while taking narcotic medication. If you have problems with taking your medication (rash, itching, nausea, etc.) call the office at once. Dressing / Incision Call your doctor if your incision/area has: Continuous Slow Oozing, Sudden Increased Bleeding, Increased Pain/ Swelling, Increased Redness and Foul Smelling Discharge Call your doctor if you observe: Fever of 101 or Higher, Shortness of breath, Chest pain, Calf discomfort and Uncontrolled pain Remove Dressing in: 4 days (Okay to remove dressing on August 13, 2024) Additional Dressing/Incision Instructions:: Follow [facility] Post-op Instructions. Once postoperative dressing has been removed, only use gentle soap and water over the incision. Do not use any ointments, Neosporin, salves, alcohol pads over the incision for 6 weeks postoperatively. Do not submerge underwater for 6 weeks postoperatively. Continue with DINO hose/elastic stockings for 2 weeks postoperatively. May remove at nighttime but needs to be placed back on the leg during the day. Do NOT use alcohol with narcotic pain medication. Do NOT make important decisions while taking narcotic medication. If you have problems with taking your medication (rash, itching, nausea, etc.) call the office at once. Follow Up Care Test Results: Test results from this visit will be discussed in further detail at your follow-up appointment, if applicable. Discharge Plan Admission Admit Date/Time: 08/08/24 08:53 Attending Provider: Colin Ewing Primary Care Provider: Joana Yanes Consulting Providers: Nell Hamilton; Jacoby Brady Nana Yaa Discharge Orders/Prescriptions Prescriptions: New acetaminophen 500 mg Tablet 1,000 mg PO Q8H 14 Days Qty: 84 0RF Rx Instructions: Do not take more than 3000 mg Tylenol in a 24-hour period. famotidine 20 mg Tablet 20 mg PO DAILY 30 Days Qty: 30 0RF doxycycline monohydrate 100 mg Capsule 100 mg PO BID 14 Days Qty: 28 0RF oxycodone 5 mg Tablet 5 - 10 mg PO Q4H PRN PRN (Reason: Pain Score 4-10) 7 Days Qty: 42 0RF Xarelto 10 mg Tablet 10 mg PO DAILY@0600 14 Days Qty: 14 0RF Rx Instructions: Take 2 weeks postoperatively for DVT prophylaxis. sennosides-docusate sodium [Stimulant Laxative Plus] 8.6-50 mg Tablet 2 tab PO BID 3 Days Qty: 12 0RF Rx Instructions: Take until first bowel movement, then as needed Continued ascorbic acid (vitamin C) [C-1000] 1,000 mg tablet 1 g PO DAILY Vitamin B-12 50 mcg lozenge 50 mcg PO DAILY cholecalciferol (vitamin D3) [Vitamin D3] 10 mcg (400 unit) capsule 10 mcg PO DAILY vitamin E 268 mg (400 unit) capsule 268 mg PO DAILY Zebulon-3 350 mg-235 mg- 90 mg-597 mg capsule,delayed release(DR/EC) 1 cap PO DAILY losartan 25 mg tablet 25 mg PO DAILY Qty: 90 1RF Referrals / Follow Up: Physical,Therapy [Other] - 08/11/24 8:00 am Joana Yanes MD [Primary Care Provider] - Teri Elliott PA [Med Staff - [facility], 1928–1983 Practice Prof] - 08/22/24 9:00 am Disposition Disposition (needs filled in before D/C Order can be placed): Home, Self Care 08/09/24 0819 Delvin JOLLY PA-C CC: Dr. Joana Yanes MD; Dr. Nell Hamilton MD; Dr. Lian Montes MD; Dr. Jacoby Brady MD Signed Normal [facility] Erythrocyte distribution wid th (RBC) [Ratio]Ordered By: Colin Ewing on 08-09-2024 Erythrocyte distribution width (RBC) [Entitic vol] 40.9 fL 35.1-43.9 [facility] Erythrocyte distribution wid th ratioOrdered By: Colin Ewing on 08-09-2024 Erythrocyte distribution width (RBC) [Ratio] 12.0 % 11.6-14.6 [facility] Estimated glomerular filtrat ion rate (GFR) AmericanOrdered By: Colin Ewing on 08-09-2024 Estimated GFR (MDRD) Amer 98 mL/min >60 [facility] Comment on above: GFR Calc Estimation of creatinine jasmine aranceOrdered By: Colin Ewing on 08-09-2024 Estimated Creatinine Clearance Calc 108.16 ml/min [facility] Glomerular filtration rate ( GFR) estimationOrdered By: Colin Ewing on 08-09-2024 Estimated GFR (MDRD) Non-Af Amer 81 mL/min >60 [facility] Comment on above: Non- GFR Calc Glucose measurementOrdered B y: Colin Ewing on 08-09-2024 Glucose [Mass/Vol] 243 mg/dL High 74-106 [facility] Comment on above: Glucose result great er than or equal to 200 mg/dLsuggests DIABETES MELLITUS per A.D.A. criteria. Hematocrit Auto (Bld) [Volum e fraction]Ordered By: Colin Ewing on 08-09-2024 Hematocrit (Bld) [Volume fraction] 39.8 % Low 40-54 [facility] Hemoglobin measurementOrdere d By: Colin Ewing on 08-09-2024 Hemoglobin (Bld) [Mass/Vol] 13.3 g/dL 13.0-16.5 [facility] MCV (mean corpuscular volume ) determinationOrdered By: Colin Ewing on 08-09-2024 MCV (RBC) [Entitic vol] 92.6 fL 80-94 [facility] Mean corpuscular hemoglobin (MCH) determinationOrdered By: Colin Ewing on 08-09-2024 MCH (RBC) [Entitic mass] 30.9 pg 27.0-32.0 [facility] Mean corpuscular hemoglobin concentration (MCHC) determinationOrdered By: Colin Ewing on 08-09-2024 MCHC (RBC) [Mass/Vol] 33.4 g/dL 32-[address] [facility] Mean platelet volume determi nationOrdered By: Colin Ewing on 08-09-2024 Platelet mean volume (Bld) [Entitic vol] 9.3 fL 6.2-12.0 [facility] Platelet countOrdered By: St mack Ewing on 08-09-2024 Platelets (Bld) [#/Vol] 279 10*3/uL 150-450 [facility] Potassium measurementOrdered By: Colin Ewing on 08-09-2024 Potassium [Moles/Vol] 4.4 mmol/L 3.5-5.[address] [facility] RBC Auto (Bld) [#/Vol]Ordere d By: Colin Ewing on 08-09-2024 RBC (Bld) [#/Vol] 4.30 10*6/uL Low 4.6-6.2 [facility] Serum anion gap measurementO rdered By: Colin Ewing on 08-09-2024 Anion gap [Moles/Vol] 6 mmol/L 5-[address] [facility] Serum or plasma calcium melonie urement (mass/volume)Ordered By: Colin Ewing on 08-09-2024 Calcium [Mass/Vol] 8.9 mg/dL 8.5-10.1 [facility] Serum or plasma creatinine m easurement (mass/volume)Ordered By: Colin Ewing on 08-09-2024 Creatinine [Mass/Vol] 1.02 mg/dL 0.70-1.[address] [facility] Comment on above: The validity of the calculated GFR & GFRAA in patients over 70 years has not been determined. Clinical correlation is essential. Serum or plasma urea nitroge n measurement (mass/volume)Ordered By: Colin Ewing on 08-09-2024 Urea nitrogen [Mass/Vol] 17 mg/dL 7-18 [facility] Sodium levelOrdered By: Korey Ewing on 08-09-2024 Sodium [Moles/Vol] 135 mmol/L Low 136-145 [facility] White blood cell (WBC) count Ordered By: Colin Ewing on 08-09-2024 WBC (Bld) [#/Vol] 17.1 10*3/uL High 4.4-11.0 [facility] Bedside Glucoseon 08-08-2024 FINGERSTICK GLU 104 mg/dL Normal 74-106 [facility] Comment on above: Result Comment: JULISSA [place] OF PATIENT CARE PER NURSING PROTOCOL Performed By: #### L 501.080 ####[facility] [address] [place], [place], [id number] Decalcification bone/plaqueo n 08-08-2024 Decalcification bone/plaque Patient Age/Sex Location Account Attending Physician CAPUTOBARBIE JULIA 54/M MS3 [id number] Dr. Colin Eiwng MD Specimen: [id number] Received: 08/08/24 Status: VAIBHAV [place] Num: [id number] Spec Type: TOTAL HIP Subm Dr: Dr. Colin Ewing MD HEADER OPERATION: Anterior right total hip arthroplasty PRE-OP DIAGNOSIS: Right hip osteoarthritis with labral tear TISSUE SUBMITTED: Right hip bone MICROSCOPIC DIAGNOSIS Right hip bone and soft tissue, total hip replacement/resectio n: Femoral head with degenerative osteoarthritic changes. Fragments of dense fibroconnective tissue and reactive synovial tissue. SJ: 08/12/2024 MICROSCOPIC DESCRIPTION Slides are reviewed. GROSS DESCRIPTION Received is one container labeled with the patient's name and designated bone and soft tissue right hip. The specimen consists of a sarkar femoral head measuring 5.5 x 5.5 x 4.5 cm The articular surface displays prominent osteophyte formation and bone erosion. Also present in the container is a piece of detached bone consistent with portion of femoral neck measuring 5.0 x 3.5 x 2.0cm. Also present in the specimen container are multiple irregular fragments of bone reamings and pink-yellow soft tissue measuring in aggregate 8.0 x 5.0 x 2.0 cm. Night Stocker sections are submitted in two cassettes as follows: 1 - soft tissue, 2 - bone after decalcification. / JM. 08/09/2024 TC:5 [facility]: [id number], [id number] Patient Age/Sex Location Account Attending Physician BARBIE CAPUTO 54/M MS3 [id number] Dr. Colin Ewing MD Signed (signature on file) Dr. Will Adams MD 08/12/24 1143 Normal [facility] Comment on above: Performed By: #### P DEC ####[facility] [address] [place], [place], [id number] [facility] deOrdered By: Colin Ewing on 08-08-2024 Bedside Glucose (Misc Panel) 104 mg/dL 74-106 [facility] Comment on above: MANAGEMENT OF PATIEN T CARE PER NURSING PROTOCOL Hip 1 view with Pelvison Hip [address] [facility] Services [address] [place], [place] [address] Hip 1 view with Pelvis MR#: [id number] Acct: [id number] Name: BARBIE CAPUTO Rep #: [id number] : 1970 M 54 From: Kevin Stewart MD PCP: Dr. Joana Yanes MD Status: ADM RINKU Study: Hip 1 view with Pelvis Date of Exam: 08/08/24 Exam# [id number] Ordering Dr: Colin Ewing MD [id number] STUDY: X-RAY - PELVIS AND RIGHT HIP REASON FOR EXAM: Male, 54 years old. Replacement TECHNIQUE: 7 intraoperative views of the pelvis and hip. 16.7 seconds of fluoroscopy, radiation dose of 3.22mGy COMPARISON: None. FINDINGS: 7 intraoperative studies performed during right hip replacement surgery. Alignment of the components is anatomic, no plain film evidence of intraoperative complication. RAD/Hip 1 view with Pelvis IMPRESSION: No intraoperative complications noted during right hip replacement surgery Electronically Signed: Michael Stewart MD at 15:18 EST , CC: Dr. Joana Yanes MD; Dr. Colin Ewing MD Director Hris: Signed Normal [facility] Hip Min 2 Views (Portable)on 08-08-2024 Hip Min 2 Views (Portable) [facility] [address] [place] [address] Hip Min 2 Views (Portable) MR#: [id number] Acct: [id number] Name: BARBIE CAPUTO Rep #: [id number] : 1970 M 54 From: Kevin Stewart MD PCP: Dr. Joana Yanes MD Status: ADM RINKU Study: Hip Min 2 Views (Portable) Date of Exam: 08/08 Exam# [id number] Ordering Dr: Colin Ewing MD [id number] STUDY: X-RAY - PELVIS AND RIGHT HIP REASON FOR EXAM: Male, 54 years old. Postop from hip replacement surgery TECHNIQUE: 2 views of the pelvis and hip. COMPARISON: None. FINDINGS: Patient is postop from right hip replacement surgery. Components demonstrate anatomic alignment, no plain film evidence of postoperative complication. Normal postoperative soft tissue swelling and subcutaneous emphysema. RAD/Hip Min 2 Views (Portable) IMPRESSION: Replaced right hip joint demonstrates anatomic alignment. No plain film evidence of hardware complication, failure, or acute traumatic abnormality Electronically Signed: Michael Stewart MD at 15:16 EST , CC: Dr. Joana Yanes MD; Dr. Colin Ewing MD Director Hris: Signed [facility] MR/POSTOP.ANEon 08-08-2024 MR/POSTOP.[facility] Medical Records Department [address] [place] [address] Anesthesia Postop Eval I 08/08/24 142 MR#: [id number] Acct: [id number] Name: BARBIE CAPUTO Rep #: [id number] : 1970 54 From: Kailey Shaffer PCP: Dr. Joana Yanes MD Status:REG [facility] Y Race: C Location: [place] [address] Anesthesia: Postop Eval I Current Vital Signs Temperature: 96.7 F Pulse Rate: 75 Blood Pressure: 101/57 Respiratory Rate: 18 Pulse Ox: 96 Assessment Airway patent: Yes Spontaneous unlabored respirations: Yes nausea: No Vomiting: No Anesthesia Complication: No Fluid Hydration Crystalloid volume administer (ml): 1,000 Total IV fluid infused: 1,000 Progress Note Anesthesia document: Postop Eval 1 completed: Yes 08/08/241425 Date Kailey Conti Signature: Date CC: Signed [facility] [id number] 08-08-2024 MR/POSTOPA[address] Medical Records Department [address] [place] [address] Anesthesia Postop Eval II 08/08/24 1724 MR#: [id number] Acct: [id number] Name: BARBIE CAPUTO Rep #: [id number] : 1970 54 From: Isael Valverde MD PCP: Dr. Joana Yanes MD Status:ADM RINKU Y Race: C Location: HI3 [id number] Anesthesia Postop Eval I Sum Postop Eval Completion status Anesthesia document: Postop Eval 1 completed: Yes Anesthesia Postop Eval I Summary Anesthesia Postop Eval I Summary: Anesthesia Postop Eval I: Assessment Summary Airway patent Yes 08/08/24 14:24 RISK ASSESSMENT CONSULTANT.CSIR Spontaneous unlabored Yes 08/08/24 14:24 RISK ASSESSMENT CONSULTANT.CSIR respirations Mental status nausea No 08/08/24 14:24 RISK ASSESSMENT CONSULTANT.CSIR Vomiting No 08/08/24 14:24 RISK ASSESSMENT CONSULTANT.CSIR Anesthesia Postop Eval I: Fluid Summary Crystalloid volume administer 1,000 08/08/24 14:24 RISK ASSESSMENT CONSULTANT.CSIR (ml) Colloids volume administered ( ml) Blood Product volume administered (ml) Total IV fluid infused 1,000 08/08/24 14:24 RISK ASSESSMENT CONSULTANT.CSIR Anesthesia Postop Eval I: Summary Notes Anesthesia Complication No 08/08/24 14:24 RISK ASSESSMENT CONSULTANT.CSIR Anesthesia Complication Comment: Post-operative progress note Anesthesia: Postop Eval II Evaluation Mental status: Awake Pain Level: 0 nausea: No Vomiting: No 08/08/24 1724 Date Isael Blackignanton Signature: Date CC: Signed Normal [facility] Operative Reporton 5 Operative Report [facility] Medical Records Department [address] [place] [address] Operative Report 08/08/24 1346 MR#: [id number] Acct: [id number] Name: BARBIE CAPUTO Rep #: [id number] : 1970 54 From: Colin Ewing MD PCP: Dr. Joana Yanes MD Status:REG [facility] Location: [place] [address] Operative Report (Standard) Operative Information Date of Procedure: 08/08/24 Pre-Operative Diagnosis: Right hip primary osteoarthritis Post-Operative Diagnosis: Right hip primary osteoarthritis Surgery/Procedure Performed: Right Total hip Replacement staff development coordinator: Yes Third Rail Installer: Delvin Hook Tasks completed by waiter/waitress first class: Other (See operative report) Additional itinerant teacher assistant?: No Type of Anesthesia: Spinal RN Documented Start/Stop Times: Operation Date: 08/08/24 11:15 Case Time Into Pre-Op 08/08/24 09:33 Anesthesia Start 08/08/24 12:02 Into Room 08/08/24 12:02 Procedure Start 08/08/24 12:18 Procedure End 08/08/24 14:16 Anesthesia End 08/08/24 14:21 Out of Room 08/08/24 14:21 Into Recovery 08/08/24 14:25 Procedure Start Time: 12:18 Procedure Stop Time: 14:16 Select all DRAINS/GRAFTS/IMPLAN TS that apply: Prosthetic device Prosthetic device details: See operative report Special Medications: Ancef Estimated Blood Loss: 500 ml Fluids Replaced: 1000 ml crystalloid Specimen collected: Yes Description of specimen(s) removed: bony cuts Description of surgery: Components used: 1. Accolade 2 [place] femoral stem size 4 127??? 2. Duarte trident 2 acetabular shell size 54 mm 3. [place] X3 polyethylene MDM 42E 4. [place] Biolox delta 28mm, 4mm femoral head 5. [place] MDM cobalt-chromium liner Brief history operative indications: 54 yo m who failed conservative measures for their hip osteoarthritis. X-rays were consistent with osteoarthritis including joint space narrowing, osteophyte formation and subchondral cysts. Total hip replacement was discussed with the patient with risks and benefits including but not limited to blood loss, DVTs, PEs, neurovascular damage, dislocation, general risks of anesthesia including loss of life. Patient demonstrated an understanding medical clearance is obtained the patient was consented for surgery. Procedure: On the date of procedure the patient's R hip was marked in the preoperative area. Patient was then taken back to the operating room where anesthesia assumed control of the C-spine and airway and a dministered anesthetic. Patient was transferred to the operating table and placed in the supine position. The hips were placed at the break of the bed and a sacral bump was placed. The R lower extremity was then prepped out in a sterile fashion using chlorhexidine while the surgeon scrubbed. The PA was vital in the positioning of the patient. Upon reentering the room the R lower extremity was draped in the standard orthopedic fashion and the incision was marked. A timeout was called and everyone agreed upon the side, the site, the procedure be performed, antibody given, and patient's identity. At this time incision was made through skin, subcutaneous tissue, and fat down to fascia. The fascia was then incised and the TFL was retracted laterally. A retractor was placed on the lateral border of the femoral neck. Attention was directed to the inferior portion of the approach and all crossing vessels were identified and appropriately coagulated. A retractor was then placed on the medial portion of the femoral neck. The anterior capsule was then cleared of all soft tissue and then H shaped capsulotomy was made. The retractors were then placed inside the capsule. The femoral neck was identified and a cleanup cut was made. At this time a power corkscrew was used to remove the femoral head. Attention was then turned toward the acetabulum where the soft tissues were appropriately retracted and the acetabulum was sequentially reamed to 54 mm. A 54 mm cup was then selected and impacted into place. Acetabular liner was impacted into place and locking mechanism was verified. The position of the acetabular cup was then verified under live fluoroscopy. Attention was then turned to the femur. Soft tissue releases on the medial and lateral femoral neck were appropriately done, the leg was externally rotated and lateralized. A Lantigua retractor was placed medially and proximally to the greater trochanter this allowed appropriate visualization and exposure of the femoral canal. Rongeour was then used to remove excess lateral bone. A canal finder and entry broach were used to open the proximal canal. Once we verified we were down the femoral canal we subsequently broached up to a size 4 femur. The appropriate neck was placed in the previously selected head was trialed with a 0 mm neck. Traction was pulled and the hip was reduced with internal rotation. Once it was appropriat (more content not included)... Normal [facility] Internal Medicine Office Vis clarisse 07-18-2024 Internal Medicine Office Visit [facility] [address] [place] [address] [place] [address] OFFICE VISIT Date of Service: 07/19/24 MR#: [id number] Acct: [id number] Name: BARBIE CAPUTO #: [id number] : 1970 Provider: Dr. Joana pineda MD Age/Sex: 54/M Location[facility] Status: Signed Intake Vital Signs 04/03/24 15:53 07/19/24 14:16 Height 5 ft 11 in 5 ft 11 in Weight: 252 lb BMI 35.1 BP 140/70 H Blood Pressure Location Lt brachial Position Sitting Respiration 16 Pulse 83 Pulse Source Monitor Temp 97.0 F L Temp Source Temporal Pulse Oximetry (%) 95 Oxygen Delivery Method room air Intake Visit Reasons: SURGICAL CLEARANCE Chief Complaint: surgical clearance Desktop Analyst Required: No Accompanied by: Self Is patient in pain?: No Allergies No Known Allergies Allergy (Verified 07/19/24 14:13) Medications ???Medication ???Instructions ???Recorded ???Confirmed ???Type losartan 25 mg tablet 25 mg PO DAILY #90 tabs 06/13/24 07/19/24 Rx ascorbic acid (vitamin C) 1,000 mg 1 g PO DAILY 07/12/24 07/19/24 History tablet (C-1000) cholecalciferol (vitamin D3) 10 10 mcg PO DAILY 07/12/24 07/19/24 History mcg (400 unit) capsule (Vitamin D3) cyanocobalamin (vitamin B-12) 50 50 mcg PO DAILY 07/12/24 07/19/24 History mcg lozenges (Vitamin B-12) omega 3 350 mg-dha 235 mg-epa 90 1 cap PO DAILY 07/12/24 07/19/24 History mg-fish oil 597 mg capsule,delay rel (Zebulon-3) vitamin E 268 mg (400 unit) capsule 268 mg PO DAILY 07/12/24 07/19/24 History PFSH Medical History Alcohol use History of steroid therapy Arthritis High cholesterol Back pain Non-smoker History of pain when walking DVT (deep venous thrombosis) History of echocardiogram History of stress test COVID Hypertension Surgical History History of right shoulder replacement H/O hernia repair H/O: knee surgery Family History Mother Cancer bladder with mets Grandfather Cancer Grandfather Cancer Social History household members: spouse and children number of children: 2 current occupational status: employed current occupation: [employer] Smoking Status: Never smoker Electronic Cigarette Use: not used alcohol intake: current alcohol intake frequency: a few times a week Alcohol type: beer substance use type: does not use what type of physical activity do you participate in: walking frequency: daily do you feel safe at home: Yes HPI HPI Chief Complaint: surgical clearance Details: BARBIE CAPUTO, is a 54 M who presents to the office today for a follow up. He is up to date on his routine blood work and screening. He doesn't want a flu shot. He doesn't smoke and does need refills. He reports he is eating healthy and is trying to stay active. The patient hasn't checked his blood pressure at home recently, but states at other provider's office visits, it is similar to today's reading. He has been out of his medication for at least a week. He doesn't add salt to his diet, but does eat salty foods. The patient stopped taking lipitor. He reports that he was taking multiple medications and getting heartburn and wasn't sure which was doing it. He states his symptoms resolved with stopping his medications. The patient is scheduled to have a right total hip arthroplasty by Dr. Ewing at [facility] on 08/08/24. They report they have had problems for a couple of years. It was progressively worsening prompting surgery. The patient is aware of the risks and benefits and wishes to proceed. They deny having any chest pain or shortness of breath with going up stairs. He denies any pain today stating the previous injection did seem to help. ROS Const Constitutional: No body ache, chills, excessive sweating, fatigue, fever(s), frequent falls, headache(s), snoring, weakness, weight change or change in appetite Eyes Eyes: No blurry vision, change in vision, eye pain or Light sensitivity ENT ENT: No abnormal hearing, ear or mastoid pain, tinnitus, nasal congestion, headache(s), neck pain or sore throat Resp Respiratory: No cough, shortness of breath, snoring or wheezing Cardio Cardiology: No chest pain at rest, chest pain with exertion, excessive sweating, dyspnea on exertion, lightheadedness, orthopnea, palpitations or other (no leg swelling) Gastro GI: No abdominal pain, change in bowel habits, constipation, cramping, diarrhea, nausea/dyspepsia or vomiting Genitourinary Male: No difficulty urinating, burning urination, painful urination, urinary incontinence or urinary frequency Musc Musculoskeletal: No abnormal gait, joint pain, back pain, limited range of m (more content not included)... Normal [facility] MRSA/SAID NASAL SCREENon MRSA+SAID SCRN Reason for Exam: Surgery MRSA MRSA Negative S. AUREUS S. aureus PositiveA Normal [facility] Comment on above: Performed By: #### L 100.0100, M100.651, L500.2500, L501.1800 #### [facility] [address] [place], [address] 12 Lead EKGon 07-12-[address] [facility] [address] [place] [address] 12 Lead EKG 07/12/24 0835 MR#: [id number] Acct: [id number] Name: BARBIE CAPUTO Rep #: [id number] : 1970 54 From: Jon Moreira MD Attending Dr: Dr. Colin Ewing MD Status: PRE [facility] Ordering Dr: Colin Ewing MD Date: 07/12/24 Location: [facility] Sex: M C Admitted: Test Reason : PREOP Blood Pressure : */* mmHG Vent. Rate : 68 BPM Atrial Rate : 68 BPM P-R Int : 172 ms QRS Dur : 94 ms QT Int : 366 ms P-R-T Axes : 32 3 29 degrees QTcB Int : 389 ms Normal sinus rhythm Normal ECG When compared with ECG of 18-Aug-2012 14:53, No significant change was found Confirmed by JON MOREIRA MD ([id number]), research editor KHANH FLOOD ([id number]) on 07/12/2024 11:14:35 AM Referred By: Colin Ewing Confirmed By: JON MOREIRA MD 07/12/24 1114 Date Jon Moreira MD CC: Dr. Joana Yanes MD; Dr. Colin Ewing MD Signed Normal [facility] Absolute neutrophil countOrd ered By: Colin Ewing on 07-12-2024 Neutrophils (Bld) [#/Vol] 3.3 10*3/uL 2.0-7.7 [facility] Albumin, Serumon 07-12-2024 Albumin [Mass/Vol] 3.9 g/dL Normal 3.2-5.0 [facility] Comment on above: Performed By: #### L 100.0100, M100.651, L500.2500, L501.1800 #### [facility] [address] [place], [address] Basic Metabolic Profile (BMP )on 07-12-2024 BUN/CRE 17.8 RATIO Normal 10-20 [facility] Comment on above: Performed By: #### L 100.0100, M100.651, L500.2500, L501.1800 #### [facility] [address] [place], [address] CA,Total 9.7 mg/dL Normal 8.5-10.1 [facility] Comment on above: Performed By: #### L 100.0100, M100.651, L500.2500, L501.1800 #### [facility] [address] [place], [address] Chloride [Moles/Vol] 106 mmol/L Normal 98-107 [facility] Comment on above: Performed By: #### L 100.0100, M100.651, L500.2500, L501.1800 #### [facility] [address] [place], [address] CO2 [Moles/Vol] 24.0 mmol/L Normal 21.0-32.0 [facility] Comment on above: Performed By: #### L 100.0100, M100.651, L500.2500, L501.1800 #### [facility] [address] [place], [address] Creatinine [Mass/Vol] 0.95 mg/dL Normal 0.70-1.[address] [facility] Comment on above: Result Comment: The validity of the calculated GFR GFRAA in patients over 70 years has not been determined. Clinical correlation is essential. Performed By: #### L 100.0100, M100.651, L500.2500, L501.1800 #### [facility] [address] [place], [address] EST GFR - AA 106 mL/min Normal >60 [facility] Comment on above: Result Comment: Afri can [place] GFR Calc Performed By: #### L 100.0100, M100.651, L500.2500, L501.1800 #### [facility] [address] [place], [address] GAP 8 Normal 5-15 [facility] Comment on above: Performed By: #### L 100.0100, M100.651, L500.2500, L501.1800 #### [facility] [address] [place], [address] GFR/1.73 sq M.predicted among non-blacks MDRD (S/P/Bld) [Vol rate/Area] 88 mL/min/{1.73_m2} Normal >60 [facility] Comment on above: Result Comment: Non- GFR Calc Performed By: #### L 100.0100, M100.651, L500.2500, L501.1800 #### [facility] [address] [place], [address] Glucose [Mass/Vol] 110 mg/dL High 74-106 [facility] Comment on above: Result Comment: Fast ing Glucose result from 100 to 125 mg/dL suggests IMPAIRED HOMEOSTASIS per A.D.A. criteria. Performed By: #### L 100.0100, M100.651, L500.2500, L501.1800 #### [facility] [address] [place], [address] Potassium [Moles/Vol] 4.3 mmol/L Normal 3.5-5.[address] [facility] Comment on above: Performed By: #### L 100.0100, M100.651, L500.2500, L501.1800 #### [facility] [address] [place], [address] Sodium [Moles/Vol] 138 mmol/L Normal 136-145 [facility] Comment on above: Performed By: #### L 100.0100, M100.651, L500.2500, L501.1800 #### [facility] [address] [place], [address] Urea nitrogen [Mass/Vol] 17 mg/dL Normal 7-18 [facility] Comment on above: Performed By: #### L 100.0100, M100.651, L500.2500, L501.1800 #### [facility] [address] [place], [address] Basophil percentageOrdered B y: Colin Ewing on 07-12-2024 Basophils/100 WBC (Bld) 0.8 % 0-1 [facility] CBC W/Diff, Automatedon 07-03 Absolute Lymph 1.76 X10 3/uL Normal 0.83-4.51 [facility] Comment on above: Performed By: #### L 100.0100, M100.651, L500.2500, L501.1800 #### [facility] [address] [place], [address] Absolute Neut 3.3 X10 3/uL Normal 2.0-7.7 [facility] Comment on above: Performed By: #### L 100.0100, M100.651, L500.2500, L501.1800 #### [facility] [address] [place], [address] Basophils/100 WBC (Bld) 0.8 % Normal 0-1 [facility] Comment on above: Performed By: #### L 100.0100, M100.651, L500.2500, L501.1800 #### [facility] [address] [place], [address] Eosinophils/100 WBC (Bld) 2.3 % Normal 0-5 [facility] Comment on above: Performed By: #### L 100.0100, M100.651, L500.2500, L501.1800 #### [facility] [address] [place], [address] Erythrocyte distribution width (RBC) [Ratio] 12.3 % Normal 11.6-14.6 [facility] Comment on above: Performed By: #### L 100.0100, M100.651, L500.2500, L501.1800 #### [facility] [address] [place], [address] Hematocrit (Bld) [Volume fraction] 45.5 % Normal 40-54 [facility] Comment on above: Performed By: #### L 100.0100, M100.651, L500.2500, L501.1800 #### [facility] [address] [place], [address] Hemoglobin (Bld) [Mass/Vol] 15.2 g/dL Normal 13.0-16.5 [facility] Comment on above: Performed By: #### L 100.0100, M100.651, L500.2500, L501.1800 #### [facility] [address] [place], [address] IG% 0.500 Normal 0.0-0.9 [facility] Comment on above: Result Comment: IG% - Immature Granulocytes (promyelocytes, myelocytes and metamyelocytes) > 1% indicates that a LEFT SHIFT is Present. Performed By: #### L 100.0100, M100.651, L500.2500, L501.1800 #### [facility] [address] [place], [address] Lymphocytes/100 WBC (Bld) 29.1 % Normal 19-41 [facility] Comment on above: Performed By: #### L 100.0100, M100.651, L500.2500, L501.1800 #### [facility] [address] [place], [address] MCH (RBC) [Entitic mass] 31.2 pg Normal 27.0-32.0 [facility] Comment on above: Performed By: #### L 100.0100, M100.651, L500.2500, L501.1800 #### [facility] [address] [place], [address] MCHC (RBC) [Mass/Vol] 33.4 g/dL Normal 32-[address] [facility] Comment on above: Performed By: #### L 100.0100, M100.651, L500.2500, L501.1800 #### [facility] [address] [place], [address] MCV (RBC) [Entitic vol] 93.4 fL Normal 80-94 [facility] Comment on above: Performed By: #### L 100.0100, M100.651, L500.2500, L501.1800 #### [facility] [address] [place], [address] Monocytes/100 WBC (Bld) 12.2 % High 0-10 [facility] Comment on above: Performed By: #### L 100.0100, M100.651, L500.2500, L501.1800 #### [facility] [address] [place], [address] Neutrophils/100 WBC (Bld) 55.1 % Normal 47-70 [facility] Comment on above: Performed By: #### L 100.0100, M100.651, L500.2500, L501.1800 #### [facility] [address] [place], [address] Nucleated RBC (Bld) [#/Vol] 0 10*3/uL Normal 0-5 [facility] Comment on above: Performed By: #### L 100.0100, M100.651, L500.2500, L501.1800 #### [facility] [address] [place], [address] Platelet mean volume (Bld) [Entitic vol] 9.2 fL Normal 6.2-12.0 [facility] Comment on above: Performed By: #### L 100.0100, M100.651, L500.2500, L501.1800 #### [facility] [address] [place], [address] Platelets (Bld) [#/Vol] 305 10*3/uL Normal 150-450 [facility] Comment on above: Performed By: #### L 100.0100, M100.651, L500.2500, L501.1800 #### [facility] [address] [place], [address] RBC (Bld) [#/Vol] 4.87 10*6/uL Normal 4.6-6.2 [facility] Comment on above: Performed By: #### L 100.0100, M100.651, L500.2500, L501.1800 #### [facility] [address] [place], [address] RDW SD 42.8 fl Normal 35.1-43.9 [facility] Comment on above: Performed By: #### L 100.0100, M100.651, L500.2500, L501.1800 #### [facility] [address] [place], [address] WBC (Bld) [#/Vol] 6.1 10*3/uL Normal 4.4-11.0 [facility] Comment on above: Performed By: #### L 100.0100, M100.651, L500.2500, L501.1800 #### [facility] [address] [place], [address] Eosinophil percentageOrdered By: Colin Ewing on 07-12-2024 Eosinophils/100 WBC (Bld) 2.3 % 0-5 [facility] Immature granulocytes/100 WB C Auto (Bld)Ordered By: Colin Ewing on 07-12-2024 Immature granulocytes/100 WBC (Bld) 0.500 % 0.0-0.9 [facility] Comment on above: IG% - Immature Granu locytes (promyelocytes, myelocytes and metamyelocytes) > 1% indicates that a LEFT SHIFT is Present. Lymphocytes Auto (Unsp spec) [#/Vol]Ordered By: Colin Ewing on 07-12-2024 Lymphocytes (Bld) [#/Vol] 1.76 10*3/uL 0.83-4.51 [facility] Lymphocytes/100 WBC Auto (Un sp spec)Ordered By: Colin Ewing on 07-12-2024 Lymphocytes/100 WBC (Bld) 29.1 % 19-41 [facility] MRSA screenOrdered By: Hari Ewing on 07-12-2024 Nasal Screen MRSA/MSSA [facility] Magnesiumon 07-12-2024 Magnesium [Mass/Vol] 2.4 mg/dL Normal 1.6-2.6 [facility] Comment on above: Performed By: #### L 501.5200 ####[facility] [address] [place], [address] Magnesium measurementOrdered By: Isael Valverde on 07-12-2024 Magnesium [Mass/Vol] 2.4 mg/dL 1.6-2.6 [facility] Monocyte percentageOrdered B y: Colin Ewing on 07-12-2024 Monocytes/100 WBC (Bld) 12.2 % High 0-10 [facility] Neutrophil percentageOrdered By: Colin Ewing on 07-12-2024 Neutrophils/100 WBC (Bld) 55.1 % 47-70 [facility] Nucleated red blood cell per centageOrdered By: Colin Ewing on 07-12-2024 Nucleated RBC/100 WBC (Bld) [Ratio] 0 % 0-5 [facility] Serum or plasma albumin melonie urement (mass/volume)Ordered By: Colin Ewing on 07-12-2024 Albumin [Mass/Vol] 3.9 g/dL 3.2-5.0 [facility] Urgent Care Visit Reporton 1 08-13-2023 Urgent Care Visit Report [facility] [address], [address] [place] [address] OFFICE VISIT Date of Service: 06/13/24 MR#: [id number] Acct: [id number] Name: BARBIE CAPUTO Rep #: [id number] : 1970 Provider: SHANAE Loyola Age/Sex: 54/M Location[facility] Status: Signed Intake Vital Signs 04/03/24 15:53 06/13/24 10:37 Height 5 ft 11 in BP 144/74 H Blood Pressure Location Lt brachial Position Sitting Respiration 16 Pulse 86 Pulse Source NIBP Temp 99.6 F H Temp Source Oral Pulse Oximetry (%) 97 Oxygen Delivery Method room air Intake Visit Reasons: TICK BITE Chief Complaint: tick bite Desktop Analyst Required: No Is patient in pain?: No Allergies No Known Allergies Allergy (Verified 06/13/24 10:37) Have you fallen in the past year?: No Nurse's Note: tick bite left medial knee area x 3 days ago. tick was embedded and pulled out by pt, unsure how long it had been there. area red now. [facility] Medical History (Updated 06/13/24 @ 11:25 by Colin JOLLY, PA) Tick bite COVID Hypertension History of blood clots Surgical History History of right shoulder replacement H/O hernia repair H/O: knee surgery Family History Mother Cancer bladder with mets Grandfather Cancer Grandfather Cancer Social History household members: spouse and children number of children: 2 current occupational status: employed current occupation: [employer] Smoking Status: Never smoker Electronic Cigarette Use: not used alcohol intake: current alcohol intake frequency: a few times a week Alcohol type: beer substance use type: does not use what type of physical activity do you participate in: walking frequency: daily do you feel safe at home: Yes HPI HPI Chief Complaint: tick bite Details: BARBIE CAPUTO, is a 54 M who presents to the office today for initial evaluation status post tick bite to right medial knee/thigh 3 days ago, stating he remove the tick and full at the time but wanted the wound to be reassessed and possibly prescribed an antibiotic. He noted no, bull's-eye since date of the tick removal 3 days ago, nonetheless was hoping to get an antibiotic to prevent infection as he describes. No complaints of lightheadedness as dizziness, nausea/vomiting, fever, chills, sweats, or any other systemic complaints. No other associated symptoms and no other alleviating/aggravat ing factors. ROS Const Constitutional: No other (As above) Exam Const General: cooperative, healthy appearing and no acute distress Orientation: alert and awake Resp Effort Inspection: normal respiratory effort and able to speak in complete sentences Cardio Rate: regular rate Pulses: radial pulses present Skin Other: 0.5 cm circumferential erythema at site of tick bite or patient describes without foreign body retention appreciated to the center otherwise unremarkable exam. Neuro General: patient alert, patient awake and patient oriented x3 Cognition: normal cognition Speech: speech normal Extrem General: normal to inspection Psych Appearance: grossly normal Mental Status: mental status grossly normal Mood: congruent mood Affect: normal affect Speech and Movement: speech and movement normal Attitude: cooperative Coding Level of Care Code Off vis,new,level 3 Diagnoses Tick bite W57.XXXA Assessment and Plan Assessment and Plan (1) Tick bite: Status: Acute Plan: Examination findings reviewed with patient who acknowledged understanding. Wound care as instructed today. Doxycycline monohydrate 200 mg p.o. x 1 as instructed today. Follow-up with PCP on an as-needed basis only. Patient states acknowledging understanding all the above. This note was generated with [employer] dictation software. It may contain incorrect words, spelling, and punctuation that were not noted in checking the note before signing. Medications: New doxycycline monohydrate 200 mg (2 x 100 mg) PO ONCE 2 caps 0RF Clinical Quality Measures Falls Risk Screening/Assistive Devices Have you fallen in the past year?: No 06/13/24 1126 Date Colin Conti Signature: Date (if applicable) CC: Normal [facility] Procedure Reporton 4 Procedure Report [facility] Medical Records Department [address] [place] [id number] Procedure Report 05/06/24 1351 MR#: [id number] Acct: [id number] Name: BARBIE CAPUTO Rep #: [id number] : 1970 54 From: Nilsa Crockett VISITOR SERVICES TECHNICIAN-C PCP: Dr. Joana Yanes MD Status:[facility] Location: [facility] Procedure Report Date of Procedure: 05/06/24 Assessment Plan Assessment/Plan (1) Left shoulder pain: QUALIFIERS: Chronicity: chronic Qualified Code(s): M25.512 - Pain in left shoulder; G89.29 - Other chronic pain PLAN: PROCEDURE: Fluoroscopic Guided left shoulder injection ORDERING PROVIDER: Dr. Colin Ewing INDICATION: Male, 54 years old. Left shoulder pain. PROVIDER: ANGELIC Green FLUOROSCOPY TIME (if supplied): 0 minutes/10 seconds. 2.8 mGy CONSENT: The risks, benefits, and alternatives to the procedure were explained to the patient. The specific risks of bleeding, infection, and neurovascular injury were detailed and accepted. Witnessed informed consent was obtained. TECHNIQUE: The left glenohumeral space access site was prepped with chlorhexidine and draped in sterile fashion. 2% Lidocaine was administered subcutaneously for local anesthesia. A 22-gauge spinal needle was positioned under radiographic fluoroscopic localization. Approximately 2 cc of Isovue 300 instilled for localization purposes. Medication was then injected. MEDICATIONS: 12 mg of betamethasone and 4 ml of 1% lidocaine. The spinal needle was removed, and a dressing was applied. The patient tolerated the procedure well without any immediate complications. IMPRESSION: Successful fluoroscopic guided left shoulder injection. Procedures Radiology Radiology Xray Procedures: 37683 Inj Asp major Joint - Hip, Knee Multi [facility] C[facility] Radiology Rad Xray Procedures: [id number] Fluoroscopic guidance for needle placement 05/06/24 1408 Cosigner Signature (if applicable): CC: JAYSHREE Crockett; Dr. Joana Yanes MD; Dr. Colin Ewing MD Signed Normal [facility] Office Visit Reporton 2023 Office Visit Report [facility] [address] [place] [address] OFFICE VISIT Date of Service: 04/13/24 MR#: [id number] Acct: [id number] Patient: BARBIE CAPUTO Rep #: [id number] : 1970 Provider: KATIE NURSE Age/Sex: 54/M Location: [facility] Status: Signed Intake Vital Signs 12/18/23 08:23 04/03/24 15:53 04/13/24 16:22 Height 5 ft 11 in 5 ft 11 in BP 142/84 H Blood Pressure Location Lt brachial Position Sitting Intake Visit Reasons: bp chk Chief Complaint: Left ear pain, swelling Allergies No Known Allergies Allergy (Verified 11/09/24 23:50) 12/14/24 0742 Date Kennedy Conti Signature: Date (if applicable) CC: Normal [facility] CBC W/Diff, Automatedon 09-0 3-2024 Absolute Lymph 2.17 X10 3/uL Normal 0.83-4.51 [facility] Comment on above: Performed By: #### L 101.9900, L501.6710, L100.0100 ####[facility] [address] [place], [address] Absolute Neut 6.3 X10 3/uL Normal 2.0-7.7 [facility] Comment on above: Performed By: #### L 101.9900, L501.6710, L100.0100 ####[facility] [address] [place], [address] Basophils/100 WBC (Bld) 0.6 % Normal 0-1 [facility] Comment on above: Performed By: #### L 101.9900, L501.6710, L100.0100 ####[facility] [address] [place], [address] Eosinophils/100 WBC (Bld) 1.9 % Normal 0-5 [facility] Comment on above: Performed By: #### L 101.9900, L501.6710, L100.0100 ####[facility] [address] [place], [address] Erythrocyte distribution width (RBC) [Ratio] 12.3 % Normal 11.6-14.6 [facility] Comment on above: Performed By: #### L 101.9900, L501.6710, L100.0100 ####[facility] [address] [place], [address] Hematocrit (Bld) [Volume fraction] 42.2 % Normal 40-54 [facility] Comment on above: Performed By: #### L 101.9900, L501.6710, L100.0100 ####[facility] [address] [place], [address] Hemoglobin (Bld) [Mass/Vol] 14.3 g/dL Normal 13.0-16.5 [facility] Comment on above: Performed By: #### L 101.9900, L501.6710, L100.0100 ####[facility] [address] [place], [address] IG% 0.500 Normal 0.0-0.9 [facility] Comment on above: Result Comment: IG% - Immature Granulocytes (promyelocytes, myelocytes and metamyelocytes) > 1% indicates that a LEFT SHIFT is Present. Performed By: #### L 101.9900, L501.6710, L100.0100 ####[facility] [address] [place], [address] Lymphocytes/100 WBC (Bld) 22.2 % Normal 19-41 [facility] Comment on above: Performed By: #### L 101.9900, L501.6710, L100.0100 ####[facility] [address] [place], [address] MCH (RBC) [Entitic mass] 31.8 pg Normal 27.0-32.0 [facility] Comment on above: Performed By: #### L 101.9900, L501.6710, L100.0100 ####[facility] [address] [place], [address] MCHC (RBC) [Mass/Vol] 33.9 g/dL Normal 32-[address] [facility] Comment on above: Performed By: #### L 101.9900, L501.6710, L100.0100 ####[facility] [address] [place], [address] MCV (RBC) [Entitic vol] 94.0 fL Normal 80-94 [facility] Comment on above: Performed By: #### L 101.9900, L501.6710, L100.0100 ####[facility] [address] [place], [address] Monocytes/100 WBC (Bld) 10.1 % High 0-10 [facility] Comment on above: Performed By: #### L 101.9900, L501.6710, L100.0100 ####[facility] [address] [place], [address] Neutrophils/100 WBC (Bld) 64.7 % Normal 47-70 [facility] Comment on above: Performed By: #### L 101.9900, L501.6710, L100.0100 ####[facility] [address] [place], [address] Nucleated RBC (Bld) [#/Vol] 0 10*3/uL Normal 0-5 [facility] Comment on above: Performed By: #### L 101.9900, L501.6710, L100.0100 ####[facility] [address] [place], [address] Platelet mean volume (Bld) [Entitic vol] 9.5 fL Normal 6.2-12.0 [facility] Comment on above: Performed By: #### L 101.9900, L501.6710, L100.0100 ####[facility] [address] [place], [address] Platelets (Bld) [#/Vol] 329 10*3/uL Normal 150-450 [facility] Comment on above: Performed By: #### L 101.9900, L501.6710, L100.0100 ####[facility] [address] [place], [address] RBC (Bld) [#/Vol] 4.49 10*6/uL Low 4.6-6.2 [facility] Comment on above: Performed By: #### L 101.9900, L501.6710, L100.0100 ####[facility] [address] [place], [address] RDW SD 42.7 fl Normal 35.1-43.9 [facility] Comment on above: Performed By: #### L 101.9900, L501.6710, L100.0100 ####[facility] [address] [place], [address] WBC (Bld) [#/Vol] 9.8 10*3/uL Normal 4.4-11.0 [facility] Comment on above: Performed By: #### L 101.9900, L501.6710, L100.0100 ####[facility] [address] [place], [address] CRPon 04-05-2024 C-REACTIVE PROT 10.10 mg/L High 0.0-3.0 [facility] Comment on above: Result Comment: C-Re active Protein (CRP) provides useful information for the diagnosis, therapy and monitoring of inflammatory processes and associated diseases. For the evaluation of Relative Risk for Cardiovascular Disease, a High Sensitivity CRP (HSCRP) should be ordered. Performed By: #### L 101.9900, L501.6710, L100.0100 ####[facility] [address] [place], [address] Erythrocyte Sed Rateon 04-05 SED RATE 9 mm/hr Normal 0-20 [facility] Comment on above: Performed By: #### L 101.9900, L501.6710, L100.0100 #### [facility] [address] [place], [address] Basic Metabolic Profile (BMP )on 04-03-2024 BUN/CRE 23.9 RATIO High 10-20 [facility] Comment on above: Performed By: #### L 100.0100, L501.6710, L500.2500, L101.9900 ####[facility] [address] [place], [address] CA,Total 8.6 mg/dL Normal 8.5-10.1 [facility] Comment on above: Performed By: #### L 100.0100, L501.6710, L500.2500, L101.9900 ####[facility] [address] [place], [address] Chloride [Moles/Vol] 109 mmol/L High 98-107 [facility] Comment on above: Performed By: #### L 100.0100, L501.6710, L500.2500, L101.9900 ####[facility] [address] [place], [address] CO2 [Moles/Vol] 24.0 mmol/L Normal 21.0-32.0 [facility] Comment on above: Performed By: #### L 100.0100, L501.6710, L500.2500, L101.9900 ####[facility] [address] [place], [address] Creatinine [Mass/Vol] 0.84 mg/dL Normal 0.70-1.[address] [facility] Comment on above: Result Comment: The validity of the calculated GFR GFRAA in patients over 70 years has not been determined. Clinical correlation is essential. Performed By: #### L 100.0100, L501.6710, L500.2500, L101.9900 ####[facility] [address] [place], [address] ECRCL 6.60 ml/min Normal [facility] Comment on above: Performed By: #### L 100.0100, L501.6710, L500.2500, L101.9900 ####[facility] [address] [place], [address] EST GFR - AA 124 mL/min Normal >60 [facility] Comment on above: Result Comment: Afri can [place] GFR Calc Performed By: #### L 100.0100, L501.6710, L500.2500, L101.9900 ####[facility] [address] [place], [address] GAP 5 Normal 5-15 [facility] Comment on above: Performed By: #### L 100.0100, L501.6710, L500.2500, L101.9900 ####[facility] [address] [place], [address] GFR/1.73 sq M.predicted among non-blacks MDRD (S/P/Bld) [Vol rate/Area] 102 mL/min/{1.73_m2} Normal >60 [facility] Comment on above: Result Comment: Non- GFR Calc Performed By: #### L 100.0100, L501.6710, L500.2500, L101.9900 ####[facility] [address] [place], [address] Glucose [Mass/Vol] 99 mg/dL Normal 74-106 [facility] Comment on above: Performed By: #### L 100.0100, L501.6710, L500.2500, L101.9900 ####[facility] [address] [place], [address] Potassium [Moles/Vol] 3.9 mmol/L Normal 3.5-5.[address] [facility] Comment on above: Performed By: #### L 100.0100, L501.6710, L500.2500, L101.9900 ####[facility] [address] [place], [address] Sodium [Moles/Vol] 138 mmol/L Normal 136-145 [facility] Comment on above: Performed By: #### L 100.0100, L501.6710, L500.2500, L101.9900 ####[facility] [address] [place], [address] Urea nitrogen [Mass/Vol] 20 mg/dL High 7-18 [facility] Comment on above: Performed By: #### L 100.0100, L501.6710, L500.2500, L101.9900 ####[facility] [address] [place], [address] CBC W/Diff, Automatedon 09-0 -2023 Absolute Lymph 2.08 X10 3/uL Normal 0.83-4.51 [facility] Comment on above: Performed By: #### L 100.0100, L501.6710, L500.2500, L101.9900 ####[facility] [address] [place], [address] Absolute Neut 5.8 X10 3/uL Normal 2.0-7.7 [facility] Comment on above: Performed By: #### L 100.0100, L501.6710, L500.2500, L101.9900 ####[facility] [address] [place], [address] Basophils/100 WBC (Bld) 0.7 % Normal 0-1 [facility] Comment on above: Performed By: #### L 100.0100, L501.6710, L500.2500, L101.9900 ####[facility] [address] [place], [address] Eosinophils/100 WBC (Bld) 2.2 % Normal 0-5 [facility] Comment on above: Performed By: #### L 100.0100, L501.6710, L500.2500, L101.9900 ####[facility] [address] [place], [address] Erythrocyte distribution width (RBC) [Ratio] 12.3 % Normal 11.6-14.6 [facility] Comment on above: Performed By: #### L 100.0100, L501.6710, L500.2500, L101.9900 ####[facility] [address] [place], [address] Hematocrit (Bld) [Volume fraction] 43.6 % Normal 40-54 [facility] Comment on above: Performed By: #### L 100.0100, L501.6710, L500.2500, L101.9900 ####[facility] [address] [place], [address] Hemoglobin (Bld) [Mass/Vol] 14.5 g/dL Normal 13.0-16.5 [facility] Comment on above: Performed By: #### L 100.0100, L501.6710, L500.2500, L101.9900 ####[facility] [address] [place], [address] IG% 0.400 Normal 0.0-0.9 [facility] Comment on above: Result Comment: IG% - Immature Granulocytes (promyelocytes, myelocytes and metamyelocytes) > 1% indicates that a LEFT SHIFT is Present. Performed By: #### L 100.0100, L501.6710, L500.2500, L101.9900 ####[facility] [address] [place], [address] Lymphocytes/100 WBC (Bld) 22.7 % Normal 19-41 [facility] Comment on above: Performed By: #### L 100.0100, L501.6710, L500.2500, L101.9900 ####[facility] [address] [place], [address] MCH (RBC) [Entitic mass] 31.2 pg Normal 27.0-32.0 [facility] Comment on above: Performed By: #### L 100.0100, L501.6710, L500.2500, L101.9900 ####[facility] [address] [place], [address] MCHC (RBC) [Mass/Vol] 33.3 g/dL Normal 32-[address] [facility] Comment on above: Performed By: #### L 100.0100, L501.6710, L500.2500, L101.9900 ####[facility] [address] [place], [address] MCV (RBC) [Entitic vol] 93.8 fL Normal 80-94 [facility] Comment on above: Performed By: #### L 100.0100, L501.6710, L500.2500, L101.9900 ####[facility] [address] [place], [address] Monocytes/100 WBC (Bld) 10.7 % High 0-10 [facility] Comment on above: Performed By: #### L 100.0100, L501.6710, L500.2500, L101.9900 ####[facility] [address] [place], [address] Neutrophils/100 WBC (Bld) 63.3 % Normal 47-70 [facility] Comment on above: Performed By: #### L 100.0100, L501.6710, L500.2500, L101.9900 ####[facility] [address] [place], [address] Nucleated RBC (Bld) [#/Vol] 0 10*3/uL Normal 0-5 [facility] Comment on above: Performed By: #### L 100.0100, L501.6710, L500.2500, L101.9900 ####[facility] [address] [place], [address] Platelet mean volume (Bld) [Entitic vol] 9.0 fL Normal 6.2-12.0 [facility] Comment on above: Performed By: #### L 100.0100, L501.6710, L500.2500, L101.9900 ####[facility] [address] [place], [address] Platelets (Bld) [#/Vol] 315 10*3/uL Normal 150-450 [facility] Comment on above: Performed By: #### L 100.0100, L501.6710, L500.2500, L101.9900 ####[facility] [address] [place], [address] RBC (Bld) [#/Vol] 4.65 10*6/uL Normal 4.6-6.2 [facility] Comment on above: Performed By: #### L 100.0100, L501.6710, L500.2500, L101.9900 ####[facility] [address] [place], [address] RDW SD 42.6 fl Normal 35.1-43.9 [facility] Comment on above: Performed By: #### L 100.0100, L501.6710, L500.2500, L101.9900 ####[facility] [address] [place], [address] WBC (Bld) [#/Vol] 9.2 10*3/uL Normal 4.4-11.0 [facility] Comment on above: Performed By: #### L 100.0100, L501.6710, L500.2500, L101.9900 ####[facility] [address] [place], [address] CRPon 04-03-2024 C-REACTIVE PROT 9.18 mg/L High 0.0-3.0 [facility] Comment on above: Result Comment: C-Re active Protein (CRP) provides useful information for the diagnosis, therapy and monitoring of inflammatory processes and associated diseases. For the evaluation of Relative Risk for Cardiovascular Disease, a High Sensitivity CRP (HSCRP) should be ordered. Performed By: #### L 100.0100, L501.6710, L500.2500, L101.9900 ####[facility] [address] [place], [address] Emergency Department Summary on 04-03-2024 Emergency Department Summary [facility] Medical Records Department [address] [place] [address] Emergency Department Summary 04/03/24 MR#: [id number] Acct: [id number] Name: BARBIE CAPUTO Rep #: [id number] : 1970 53 From: Terrance Vazquez MD PCP: Dr. Joana Yanes MD Status:REG ER Location: ED HPI History of Present Illness Chief Complaint: Lower Extremity Injury Detail of Chief Complaint: Right hip pain status post MRI arthrogram performed March 28. Informant: patient Onset/Context/Timing Onset: Days Context: Sudden Onset Timing: Continuous Quality: Pain Location: Right inguinal area radiating through the buttocks Current Severity: Mild Maximum Severity: Severe Worsened by: Certain movements and weightbearing Relieved by: Nothing Associated Symptoms Associated Symptoms: Night sweats Narrative Narrative: Patient is a 53-year-old male who apparently had an injury August 2022. He underwent MRI arthrogram March 28. He was told that the pain may be persistent and pressure sensation 24 to 48 hours. The pain is increased. He has had night sweats the past several days. He states he contacted Dr. Ewing's office and was told NSAIDs and Benadryl on . Since the pain has gotten worse and he has pain with movement and weightbearing he presents to the emergency room for evaluation. He denies documented fever. He is on a blood pressure medicine. Review of prior records indicates that he apparently is on losartan and atorvastatin. Patient denies paresthesia, anesthesia motor weakness of his right lower extremity. Prior similar symptoms: No Recent Illness/Hospitalizat ion: No PFSH PFSH Medical History COVID Hypertension History of blood clots Home Medications ???Medication ???Instructions ???Recorded ???Last Taken ???Type atorvastatin 10 mg tablet (Lipitor) 10 mg PO QHS #30 tabs 03/03/24 Unknown Rx losartan 25 mg tablet 25 mg PO DAILY #30 tabs 03/03/24 Unknown Rx ketorolac 10 mg tablet 10 mg PO Q6H #12 tabs 04/03/24 Unknown Rx Allergy/AdvReac Type Severity Reaction Status Date / Time No Known Allergies Allergy Verified 04/03/24 15:54 Family History Mother Cancer bladder with mets Grandfather Cancer Grandfather Cancer Surgical History History of right shoulder replacement H/O hernia repair H/O: knee surgery Social History household members: spouse and children number of children: 2 current occupational status: employed current occupation: [employer] Smoking Status: Never smoker Electronic Cigarette Use: not used alcohol intake: current alcohol intake frequency: a few times a week Alcohol type: beer substance use type: does not use what type of physical activity do you participate in: walking frequency: daily do you feel safe at home: Yes ROS ROS ED Constitutional Constitutional ED: Reports sweats; Denies chills, fever(s), subjective or weight loss Musculoskeletal Musculoskeletal: Reports other Details: Right hip pain that he localizes to the right inguinal region. Patient reports difficulty ambulating. ; Denies arthralgias, back pain, myalgias or neck pain Integumentary Denies abscess, Abrasions or rash Neurologic Neurologic: Denies paresthesias or weakness Hematologic/Lymphati c Hematologic/Lymphati c: Reports systems reviewed and no addt'l complaints, except as documented EXAM Physical Exam Const Vital Signs: 04/03/24 15:53 04/03/24 17:52 Temperature 98 F Temperature Source Temporal Pulse Rate 90 86 Respiratory Rate 16 16 Blood Pressure 130/93 H 131/76 H Blood Pressure Mean 105 94 Pulse Ox 99 98 Oxygen Delivery Method Room Air Room Air Positive well nourished and well developed General Appearance ED: well developed; Negative for cyanotic, diaphoretic, NAD or pallor HEENT HEENT Narrative: Head is atraumatic no cephalic. Ears normal. Nares patent. Eyes PERRL and EOMs intact bilaterally General Eye ED: Negative for pale conjunctiva or scleral icterus Neck no lymphadenopathy, supple and no JVD Resp normal respiratory effort Cardio regular rate and regular rhythm Narrative: There is no inguinal lymphadenopathy. He has tenderness in the left inguinal area. Logrolling causes him significant discomfort. Back/Spine Thoracic Spine / Upper Back: Negative for thoracic spinal tenderness Lumbar Spine / Lower Back: Negative for lumbar spinal tenderness Extremity normal to inspection Extremity Narrative: DP and PT pulse are palpable. Janee Marcy 4 test causes a marked discomfort and unable to complete the maneuver. General Extremety ED: Negative for edema or t (more content not included)... Normal [facility] Erythrocyte Sed Rateon 04-03 SED RATE 8 mm/hr Normal 0-20 [facility] Comment on above: Performed By: #### L 100.0100, L501.6710, L500.2500, L101.9900 ####[facility] [address] [place], [address] Lower Ext/Jt Only/W Contrast on 03-28-2024 Lower Ext/Jt Only/W Contrast [facility] [address] [place], [place] [address] Lower Ext/Jt Only/W Contrast MR#: [id number] Acct: [id number] Name: BARBIE CAPUTO Rep #: [id number] : 1970 M 53 From: Kin Jaramillo MD PCP: Dr. Joana Yanes MD Status: REG CL Study: Lower Ext/Jt Only/W Contrast Date of Exam: Exam# [id number] Ordering Dr: Colin Ewing MD [id number] STUDY: MRI ARTHROGRAM OF THE RIGHT HIP REASON FOR EXAM: Male, 53 years old. Right hip pain for approximately 2 years without injury. TECHNIQUE: 10 mL of dilute Clariscan contrast was injected into the right hip joint. MRI was obtained in all 3 orthogonal planes. COMPARISON: Pelvis and left hip radiographs dated 09/20/2022. FINDINGS: There is a suspected small tear of the right anterior acetabular labrum (sagittal T2 series 6 image 10). There is also a tear of the right superior acetabular labrum, with an adjacent 7 mm paralabral cyst (coronal T2 series 4 images 10-13). There is degenerative arthrosis of the right hip joint with marginal osteophyte formation, chondral thinning, and subchondral marrow edema in the acetabulum. Intact femoral head, femoral neck and intratrochanteric region. There is no demonstrated fracture. Normal gluteus minimus, medius and iliopsoas tendons and distal insertions. There is no trochanteric, iliopsoas or iliopectineal bursitis. Normal superior and inferior pubic rami. Normal pubic symphysis. Normal ischial tuberosity. Normal origin of the hamstring tendons. Normal visualized iliac wing, sacroiliac joint, and sacral ala. Normal visualized soft tissue structures of the pelvis. MRI/Lower Ext/Jt Only/W Contrast IMPRESSION: Suspected small tear of the right anterior acetabular labrum. Tear of the right superior acetabular labrum, with an adjacent 7 mm paralabral cyst. Degenerative arthrosis of the right hip joint. Electronically Signed: Kin Jaramillo MD at 16:08 EDT Reading Location ID and State: [facility] / MD , Service support , CC: Dr. Joana Yanes MD; Dr. Colin Ewing MD Director Hris: Signed Normal [facility] Procedure Reporton Procedure Report [facility] Medical Records Department [address] [place] [address] Procedure Report 03/28/24 1328 MR#: [id number] Acct: [id number] Name: BARBIE CAPUTO Rep #: [id number] : 1970 53 From: Nilsa MARTELL PCP: Dr. Joana Yanes MD Status:REG CLI Location: RAD Procedure Report Date of Procedure: 03/28/24 Assessment Plan Assessment/Plan (1) Right hip pain: PLAN: PROCEDURE: Arthrogram-right hip ORDERING PROVIDER: Dr. Colin Ewing INDICATION: Male, 53 years old. Right hip pain. FLUOROSCOPY TIME (if supplied): 0 minutes/31 seconds. 14.2 mGy PROVIDER: Nilsa Crockett SAUSAGE CUTTER-RECOVERY COORDINATOR CONSENT: The procedure as well as the benefits and possible complications including bleeding and infection were explained to the patient. Informed consent was obtained. TECHNIQUE: The patient was positioned supine. The overlying skin was prepped and draped in the usual sterile fashion. Following injection of local anesthetic with 2% lidocaine and under direct fluoroscopic guidance, a 22-gauge spinal needle was placed into the right hip joint. 2 cc of Isovue 300 was injected for confirmation. Following this, 10 cc of arthrogram contrast (gadoterate, iopamidol, lidocaine, and epinephrine), compounded by pharmacy, was injected. All elements of maximal sterile barrier technique followed. Patient tolerated procedure well. IMPRESSION: Successful fluoroscopic guided right hip arthrogram. Procedures Radiology Radiology Xray Procedures: 48331 Arthrogram Hip Multi Select Codes Radiology Rad Xray Procedures: 16310-53 Fluoroscopic guidance for needle placement 03/28/24 1331 Cosigner Signature (if applicable): CC: VISITOR SERVICES TECHNICIAN-C Nilsa Crockett; Dr. Joana Yanes MD; Dr. Colin Ewing MD Signed Normal [facility] CBC W/Diff, Automatedon 07-2 Absolute Lymph 2.38 X10 3/uL Normal 0.83-4.51 [facility] Comment on above: Performed By: #### L 500.4100, L500.4050, L100.0100, L501.9910 ####[facility] [address] [place], [address] Absolute Neut 5.3 X10 3/uL Normal 2.0-7.7 [facility] Comment on above: Performed By: #### L 500.4100, L500.4050, L100.0100, L501.9910 ####[facility] [address] [place], [address] Basophils/100 WBC (Bld) 0.6 % Normal 0-1 [facility] Comment on above: Performed By: #### L 500.4100, L500.4050, L100.0100, L501.9910 ####[facility] [address] [place], [address] Eosinophils/100 WBC (Bld) 2.2 % Normal 0-5 [facility] Comment on above: Performed By: #### L 500.4100, L500.4050, L100.0100, L501.9910 ####[facility] [address] [place], [address] Erythrocyte distribution width (RBC) [Ratio] 12.3 % Normal 11.6-14.6 [facility] Comment on above: Performed By: #### L 500.4100, L500.4050, L100.0100, L501.9910 ####[facility] [address] [place], [address] Hematocrit (Bld) [Volume fraction] 43.5 % Normal 40-54 [facility] Comment on above: Performed By: #### L 500.4100, L500.4050, L100.0100, L501.9910 ####[facility] [address] [place], [address] Hemoglobin (Bld) [Mass/Vol] 14.9 g/dL Normal 13.0-16.5 [facility] Comment on above: Performed By: #### L 500.4100, L500.4050, L100.0100, L501.9910 ####[facility] [address] [place], [address] IG% 0.700 Normal 0.0-0.9 [facility] Comment on above: Result Comment: IG% - Immature Granulocytes (promyelocytes, myelocytes and metamyelocytes) > 1% indicates that a LEFT SHIFT is Present. Performed By: #### L 500.4100, L500.4050, L100.0100, L501.9910 ####[facility] [address] [place], [address] Lymphocytes/100 WBC (Bld) 26.5 % Normal 19-41 [facility] Comment on above: Performed By: #### L 500.4100, L500.4050, L100.0100, L501.9910 ####[facility] [address] [place], [address] MCH (RBC) [Entitic mass] 31.7 pg Normal 27.0-32.0 [facility] Comment on above: Performed By: #### L 500.4100, L500.4050, L100.0100, L501.9910 ####[facility] [address] [place], [address] MCHC (RBC) [Mass/Vol] 34.3 g/dL Normal 32-[address] [facility] Comment on above: Performed By: #### L 500.4100, L500.4050, L100.0100, L501.9910 ####[facility] [address] [place], [address] MCV (RBC) [Entitic vol] 92.6 fL Normal 80-94 [facility] Comment on above: Performed By: #### L 500.4100, L500.4050, L100.0100, L501.9910 ####[facility] [address] [place], [address] Monocytes/100 WBC (Bld) 11.1 % High 0-10 [facility] Comment on above: Performed By: #### L 500.4100, L500.4050, L100.0100, L501.9910 ####[facility] [address] [place], [address] Neutrophils/100 WBC (Bld) 58.9 % Normal 47-70 [facility] Comment on above: Performed By: #### L 500.4100, L500.4050, L100.0100, L501.9910 ####[facility] [address] [place], [address] Nucleated RBC (Bld) [#/Vol] 0 10*3/uL Normal 0-5 [facility] Comment on above: Performed By: #### L 500.4100, L500.4050, L100.0100, L501.9910 ####[facility] [address] [place], [address] Platelet mean volume (Bld) [Entitic vol] 9.2 fL Normal 6.2-12.0 [facility] Comment on above: Performed By: #### L 500.4100, L500.4050, L100.0100, L501.9910 ####[facility] [address] [place], [address] Platelets (Bld) [#/Vol] 318 10*3/uL Normal 150-450 [facility] Comment on above: Performed By: #### L 500.4100, L500.4050, L100.0100, L501.9910 ####[facility] [address] [place], [address] RBC (Bld) [#/Vol] 4.70 10*6/uL Normal 4.6-6.2 [facility] Comment on above: Performed By: #### L 500.4100, L500.4050, L100.0100, L501.9910 ####[facility] [address] [place], [address] RDW SD 42.3 fl Normal 35.1-43.9 [facility] Comment on above: Performed By: #### L 500.4100, L500.4050, L100.0100, L501.9910 ####[facility] [address] [place], [address] WBC (Bld) [#/Vol] 9.0 10*3/uL Normal 4.4-11.0 [facility] Comment on above: Performed By: #### L 500.4100, L500.4050, L100.0100, L501.9910 ####[facility] [address] [place], [address] Comprehensive Metabolic [facility] 02-24-2024 Albumin [Mass/Vol] 3.8 g/dL Normal 3.2-5.0 [facility] Comment on above: Order Comment: CC: Risa EWING Performed By: #### L 500.4100, L500.4050, L100.0100, L501.9910 ####[facility] [address] [place], [address] Albumin/Globulin [Mass ratio] 1.1 {ratio} Normal 0.9-2.4 [facility] Comment on above: Order Comment: CC: Risa EWING Performed By: #### L 500.4100, L500.4050, L100.0100, L501.9910 ####[facility] [facility] [address] [place], [address] ALK P 56 U/L Normal 45-117 [facility] Comment on above: Order Comment: CC: Risa EWING Performed By: #### L 500.4100, L500.4050, L100.0100, L501.9910 ####[facility] [address] [place], [address] ALT [Catalytic activity/Vol] 40 U/L Normal 16-61 [facility] Comment on above: Order Comment: CC: Risa GUILLERMO TO DR. EWING Performed By: #### L 500.4100, L500.4050, L100.0100, L501.9910 ####[facility] [address] [place], [address] AST [Catalytic activity/Vol] 24 U/L Normal 15-37 [facility] Comment on above: Order Comment: CC: Risa GUILLERMO TO DR. EWING Performed By: #### L 500.4100, L500.4050, L100.0100, L501.9910 ####[facility] [address] [place], [address] Bilirubin [Mass/Vol] 0.50 mg/dL Normal 0.20-1.00 [facility] Comment on above: Order Comment: CC: Risa GUILLERMO TO DR. EWING Result Comment: For patients on eltrombopag therapy, use of Dimension [place] TBIL is not recommended. Performed By: #### L 500.4100, L500.4050, L100.0100, L501.9910 ####[facility] [address] [place], [address] BUN/CRE 13.9 RATIO Normal 10-20 [facility] Comment on above: Order Comment: CC: Risa EWING Performed By: #### L 500.4100, L500.4050, L100.0100, L501.9910 ####[facility] [address] [place], [address] CA,Total 8.9 mg/dL Normal 8.5-10.1 [facility] Comment on above: Order Comment: CC: Risa GUILLERMO TO DR. EWING Performed By: #### L 500.4100, L500.4050, L100.0100, L501.9910 ####[facility] [address] [place], [address] Chloride [Moles/Vol] 105 mmol/L Normal 98-107 [facility] Comment on above: Order Comment: CC: Risa GUILLERMO TO DR. EWING Performed By: #### L 500.4100, L500.4050, L100.0100, L501.9910 ####[facility] [address] [place], [address] CO2 [Moles/Vol] 26.0 mmol/L Normal 21.0-32.0 [facility] Comment on above: Order Comment: CC: Risa GUILLERMO TO DR. EWING Performed By: #### L 500.4100, L500.4050, L100.0100, L501.9910 ####[facility] [address] [place], [address] Creatinine [Mass/Vol] 1.08 mg/dL Normal 0.70-1.[address] [facility] Comment on above: Order Comment: CC: Risa GUILLERMO TO DR. EWING Result Comment: The validity of the calculated GFR GFRAA in patients over 70 years has not been determined. Clinical correlation is essential. Performed By: #### L 500.4100, L500.4050, L100.0100, L501.9910 ####[facility] [address] [place], [address] EST GFR - AA 92 mL/min Normal >60 [facility] Comment on above: Order Comment: CC: Risa GUILLERMO TO DR. EWING Result Comment: Afri can [place] GFR Calc Performed By: #### L 500.4100, L500.4050, L100.0100, L501.9910 ####[facility] [address] [place], [address] GAP 7 Normal 5-15 [facility] Comment on above: Order Comment: CC: Risa GUILLERMO TO DR. EWING Performed By: #### L 500.4100, L500.4050, L100.0100, L501.9910 ####[facility] [address] [place], [address] GFR/1.73 sq M.predicted among non-blacks MDRD (S/P/Bld) [Vol rate/Area] 76 mL/min/{1.73_m2} Normal >60 [facility] Comment on above: Order Comment: CC: Risa GUILLERMO TO DR. EWING Result Comment: Non- GFR Calc Performed By: #### L 500.4100, L500.4050, L100.0100, L501.9910 ####[facility] [address] [place], [address] Globulin (S) [Mass/Vol] 3.6 g/dL Normal 2.2-4.2 [facility] Comment on above: Order Comment: CC: Risa EWING Performed By: #### L 500.4100, L500.4050, L100.0100, L501.9910 ####[facility] [address] [place], [address] Glucose [Mass/Vol] 88 mg/dL Normal 74-106 [facility] Comment on above: Order Comment: CC: Risa EWING Performed By: #### L 500.4100, L500.4050, L100.0100, L501.9910 ####[facility] [address] [place], [address] Potassium [Moles/Vol] 3.8 mmol/L Normal 3.5-5.[address] [facility] Comment on above: Order Comment: CC: Risa EWING Performed By: #### L 500.4100, L500.4050, L100.0100, L501.9910 ####[facility] [address] [place], [address] Sodium [Moles/Vol] 138 mmol/L Normal 136-145 [facility] Comment on above: Order Comment: CC: Risa GUILLERMO TO DR. EWING Performed By: #### L 500.4100, L500.4050, L100.0100, L501.9910 ####[facility] [address] [place], [address] T PROT 7.4 g/dL Normal 6.4-8.2 [facility] Comment on above: Order Comment: CC: Risa GUILLERMO TO DR. EWING Performed By: #### L 500.4100, L500.4050, L100.0100, L501.9910 ####[facility] [address] [place], [address] Urea nitrogen [Mass/Vol] 15 mg/dL Normal 7-18 [facility] Comment on above: Order Comment: CC: Risa GUILLERMO TO DR. EWING Performed By: #### L 500.4100, L500.4050, L100.0100, L501.9910 ####[facility] [address] [place], [address] Lipid Profileon 02-24-2024 Cholesterol [Mass/Vol] 235 mg/dL High 200 [facility] Comment on above: Order Comment: CC: Risa GUILLERMO TO DR. EWING Result Comment: <200 mg/dL Desirable 200-240 mg/dL Borderline >240 mg/dL High Risk Performed By: #### L 500.4100, L500.4050, L100.0100, L501.9910 ####[facility] [address] [place], [address] Cholesterol in HDL [Mass/Vol] 47 mg/dL Normal [facility] Comment on above: Order Comment: CC: Risa GUILLERMO TO DR. EWING Result Comment: The drugs N-Acetylcysteine and Metamizole may falsely depress this assay. Reference Range HDL <40 mg/dL Low HDL Cholesterol HDL >or= 60 mg/dL High HDL Cholesterol Performed By: #### L 500.4100, L500.4050, L100.0100, L501.9910 ####[facility] [address] [place], [address] Cholesterol in LDL [Mass/Vol] 144 mg/dL High 0-130 [facility] Comment on above: Order Comment: CC: Risa GUILLERMO TO DR. EWING Performed By: #### L 500.4100, L500.4050, L100.0100, L501.9910 ####[facility] [address] [place], [address] Cholesterol in VLDL [Mass/Vol] 44 mg/dL High 5-40 [facility] Comment on above: Order Comment: CC: Risa GUILLERMO TO DR. EWING Performed By: #### L 500.4100, L500.4050, L100.0100, L501.9910 ####[facility] [address] [place], [address] Triglyceride [Mass/Vol] 219 mg/dL High [facility] Comment on above: Order Comment: CC: Risa GUILLERMO TO DR. EWING Result Comment: The drugs N-Acetylcysteine and Metamizole may falsely depress this assay. Serum Triglycerides Reference Interval Normal <150 mg/dL Borderline high 150 - 199 mg/dL High 200 - 499 mg/dL Very High > or = 500 mg/dL Performed By: #### L 500.4100, L500.4050, L100.0100, L501.9910 ####[facility] [address] [place], [address] PSA,Total - Annual Screenon 02-24-2024 PSA,TOT SCREEN 0.56 ng/mL Normal 0.00-4.00 [facility] Comment on above: Order Comment: CC: Risa GUILLERMO TO DR. EWING Result Comment: This test was performed using the TPSA assay method for the [employer] chemistry system. Values obtained with different assay methods cannot be used interchangably. When changing PSA assays in the course of monitoring a patient, additional sequential testing should be carried out to confirm baseline values. Performed By: #### L 500.4100, L500.4050, L100.0100, L501.9910 ####[facility] [address] [facility] [place], [address] Spine Lumbar (Routine)on Spine Lumbar (Routine) [facility] [address] [place] [address] Spine Lumbar (Routine) MR#: [id number] Acct: [id number] Name: BARBIE CAPUTO Rep #: [id number] : 1970 M 53 From: Naresh Rowland PCP: [facility] Joana Yanes MD [facility] (Routine) Date of Exam: 02/03/24 Exam# [id number] Ordering Dr: Bay Hayden DO [id number] STUDY: MRI LUMBAR SPINE WITHOUT CONTRAST REASON FOR EXAM: Male, 53 years old. SPINAL STENOSIS. Additional history-popping, pain down rt leg shooting to rt knee and foot, nki or surgery TECHNIQUE: Standardized fat and water weighted pulse sequences were obtained in the sagittal and axial planes. Noncontrast images obtained. Contrast: No contrast administered COMPARISON: None FINDINGS: LIMITATIONS: Motion artifact. Vertebral bodies and alignment. 1. Vertebral body height and alignment are maintained. No evidence of marrow edema or occult fracture. No evidence of focal canal stenosis. 2. Paraspinous soft tissue planes have normal appearance. Normal appearance of the muscular fascial planes of the erector spinae. 3. Normal appearance of the sacrum and sacroiliac joints. Intervertebral disks levels. T12-L1: Normal endplates. Normal disc height, hydration and morphology. Normal bilateral facet joints. Normal central canal and bilateral lateral recesses. Normal bilateral intervertebral neural foramina. Endplate: No focal endplate marrow changes or endplate deformity. L1-2: Normal endplates. Normal disc height, hydration and morphology. Normal bilateral facet joints. Normal central canal and bilateral lateral recesses. Normal bilateral intervertebral neural foramina. Endplate: No focal endplate marrow changes or endplate deformity. L2-3: Mild disc desiccation, no disc herniation canal or foraminal stenosis. Mild facet hypertrophic changes. Endplate: No focal endplate marrow changes or endplate deformity. L3-4: Disc desiccation, broad-based posterior disc bulge, no evidence of canal stenosis. There is mild narrowing of neural foramina without nerve root impingement. RIGHT foraminal bulge is present. Endplate: No focal endplate marrow changes or endplate deformity. L4-5: No disc herniation or canal stenosis. Facet and ligament flavum hypertrophic changes. No evidence of canal or foraminal stenosis. Endplate: No focal endplate marrow changes or endplate deformity. L5-S1: Disc desiccation, broad-based posterior disc bulge, there is a RIGHT posterior lateral annular tear with mild narrowing of the RIGHT neural foramen. No erlinda nerve root impingement.. No evidence of canal stenosis. Facet and ligament flavum hypertrophic changes are present. Endplate: Contour deformity of the inferior endplate of L5, no evidence however of marrow edema or Modic changes. Spinal cord: Normal appearance of the spinal cord and conus. Conus is located at L1. Cauda equina has normal appearance. No evidence of cord compression or edema. No intramedullary signal abnormality noted. Paraspinous soft tissues: Normal visualized paraspinous soft tissue structures. MRI/Spine Lumbar (Routine) IMPRESSION: 1. Moderate multilevel lumbar spondylosis. Disc bulges and osteophyte complexes are present. 2. No acute disc herniation canal stenosis or cord compression. 3. Mild foraminal narrowing at L3-4 contributed by facet and ligamentum flavum hypertrophic changes as well as a RIGHT foraminal disc bulge without erlinda nerve root impingement. 4. RIGHT posterior lateral annular tear at L5-S1 with mild narrowing of the RIGHT neural foramen without erlinda nerve root impingement. 5. Normal appearance of visualized spinal cord. Electronically Signed: Naresh Naranjo MD at 23:26 EDT , CC: Dr. Joana Yanes MD; Dr. Bay Hayden DO Director Hris: Signed Normal [facility] Gel ABOon 05-09-2022 ABO/Rh Interp Positive Invalid Interpretation Code [facility] ([place]) Comment on above: Performed By: #### A NSG, ABOG #### [id number] [place], [place] [address] Gel ABSon 05-09-2022 Antibody Screen Gel Negative Normal [facility] ([place]) Comment on above: Performed By: #### A NSG, ABOG #### [id number] [place], [place] [address] LABORATORYOrdered By: Beatrice Dial on 05-09-2022 ABO/Rh Interp Positive Invalid Interpretation Code AO BB SS Antibody Screen Gel Negative ABSC (05/09/22 10:19 AM) Invalid Interpretation Code AO BB SS XR SHOULDER MINIMUM 2 VIEWS RIGHTon 05-09-2022 XR SHOULDER MINIMUM 2 VIEWS RIGHT ORIGINAL EXAMINATION: TWO XRAY VIEWS OF THE RIGHT SHOULDER 05/09/2022 3:25 pm COMPARISON: None at our institution. HISTORY: ORDERING SYSTEM PROVIDED HISTORY: Reason for Exam: Status Post Arthroplasty FINDINGS: Postsurgical changes status post right partial shoulder arthroplasty are noted. The exam is somewhat limited secondary to patient positioning. Within this limitation no acute fracture, dislocation, or hardware failure is noted. No unexpected radiopaque foreign body is identified. IMPRESSION: Limited exam with expected postsurgical changes status post partial shoulder arthroplasty. Interpreted by: Ed Mir MD Preliminary Report By: Ed Mir MD Electronically signed By Ed Mir MD Dictated Date: 05/09/2022 3:52:45 PM Prelim Date: 05/09/2022 3:54:52 PM Sign Date: 05/09/2022 3:54:52 PM Ordering Provider: COLIN Zelaya [facility] ([place]) .Auto Diffon 04-29-2022 Basophil, Absolute 0.1 10 3/mcL Normal 0.0-0.2 [facility] ([place]) Comment on above: Performed By: #### A DAMASO ANSG #### [address] [address] Basophils/100 WBC (Bld) 0.7 % Normal 0.0-2.5 A [facility] ([place]) Comment on above: Performed By: #### A CHADWICK PETITG #### [address] [address] Eosinophil, Absolute 0.1 10 3/mcL Normal 0.0-0.4 [facility] ([place]) Comment on above: Performed By: #### A CHADWICK PETITG #### [address] [address] Eosinophils/100 WBC (Bld) 1.6 % Normal 0.0-7.0 [facility] ([place]) Comment on above: Performed By: #### A CHADWICK PETITG #### [address] [address] Lymphocyte, Absolute 2.1 10 3/mcL Normal 0.8-3.9 [facility] ([place]) Comment on above: Performed By: #### A DAMASO ANSG #### [address] [address] Lymphocytes/100 WBC (Bld) 29.9 % Normal 10.0-50.0 [facility] ([place]) Comment on above: Performed By: #### A DAMASO ANSG #### [address] [address] Monocyte, Absolute 0.6 10 3/mcL Normal 0.2-1.0 [facility] ([place]) Comment on above: Performed By: #### A DAMASO ANSG #### [address] [address] Monocytes/100 WBC (Bld) 9.2 % Normal 1.7-13.0 A [facility] ([place]) Comment on above: Performed By: #### A DILSHAD PETIT #### [address] [address] Neutrophils/100 WBC (Bld) 58.6 % Normal 37.0-80.0 [facility] ([place]) Comment on above: Performed By: #### A DILSHAD PETIT #### [address] [address] .NEUABSon 04-29-2022 Neutrophil, Absolute 4.1 10 3/mcL Normal 2.9-6.2 [facility] ([place]) Comment on above: Performed By: #### A DILSHAD PETIT #### [address] [address] CBCon 04-29-2022 Erythrocyte distribution width (RBC) [Ratio] 12.6 % Normal 11.5-14.5 [facility] ([place]) Comment on above: Order Comment: Pre-A dmission Testing Performed By: #### A DILSHAD PETIT #### [address] [address] Hematocrit (Bld) [Volume fraction] 47.3 % Normal 42.0-52.0 [facility] ([place]) Comment on above: Order Comment: Pre-A dmission Testing Performed By: #### A DILSHAD PETIT #### [address] [address] Hgb 16.3 G/dL Normal 14.0-18.0 [facility] ([place]) Comment on above: Order Comment: Pre-A dmission Testing Performed By: #### A DILSHAD PETIT #### [address] [address] MCH (RBC) [Entitic mass] 32.1 pg High 27.0-31.2 [facility] ([place]) Comment on above: Order Comment: Pre-A dmission Testing Performed By: #### A DILSHAD PETIT #### [address] [address] MCHC 34.4 G/dL Normal 31.8-35.4 [facility] ([place]) Comment on above: Order Comment: Pre-A dmission Testing Performed By: #### A DILSHAD PETIT #### [address] [address] MCV (RBC) [Entitic vol] 93.3 fL Normal 80.0-94.0 A [facility] ([place]) Comment on above: Order Comment: Pre-A dmission Testing Performed By: #### A DILSHAD PETIT #### [address] [address] Platelet 292 10 3/mcL Normal 130-400 [facility] ([place]) Comment on above: Order Comment: Pre-A dmission Testing Performed By: #### A DILSHAD PETIT #### [address] [address] Platelet mean volume (Bld) [Entitic vol] 7.3 fL Low 7.4-10.4 [facility] ([place]) Comment on above: Order Comment: Pre-A dmission Testing Performed By: #### A DILSHAD PETIT #### [address] [address] RBC 5.07 10 6/mcL Normal 4.04-6.13 [facility] ([place]) Comment on above: Order Comment: Pre-A dmission Testing Performed By: #### A DILSHAD PETIT #### [address] [address] WBC 7.0 10 3/mcL Normal 4.6-10.8 [facility] ([place]) Comment on above: Order Comment: Pre-A dmission Testing Performed By: #### A DILSHAD PETIT #### [address] [address] Gel ABOon 04-29-2022 ABO/Rh Interp Positive Invalid Interpretation Code [facility] ([place]) Comment on above: Performed By: #### A DILSHAD PETIT #### [address] [address] Gel ABSon 04-29-2022 Antibody Screen Gel Negative Normal [facility] ([place]) Comment on above: Performed By: #### A DAMASO ANSG #### [address] [place] [address] LABORATORYOrdered By: Ila Osborn on 04-29-2022 ABO/Rh Interp Positive Invalid Interpretation Code AO BB SS Antibody Screen Gel Negative ABSC (04/29/22 2:10 PM) Invalid Interpretation Code AO BB SS Basophil, Absolute 0.1 103/mcL Invalid Interpretation Code 0.0 - 0.2 10^3/mcL AO Workflow SS Basophils/100 WBC (Bld) 0.7 % Invalid Interpretation Code 0.0 - 2.5 % AO Workflow SS Eosinophil, Absolute 0.1 103/mcL Invalid Interpretation Code 0.0 - 0.4 10^3/mcL AO Workflow SS Eosinophils/100 WBC (Bld) 1.6 % Invalid Interpretation Code 0.0 - 7.0 % AO Workflow SS Erythrocyte distribution width (RBC) [Ratio] 12.6 % Invalid Interpretation Code 11.5 - 14.5 % AO Workflow SS Hematocrit (Bld) [Volume fraction] 47.3 % Invalid Interpretation Code 42.0 - 52.0 % AO Workflow SS Hemoglobin (Bld) [Mass/Vol] 16.3 G/dL Invalid Interpretation Code 14.0 - 18.0 G/dL AO Workflow SS Lymphocyte, Absolute 2.1 103/mcL Invalid Interpretation Code 0.8 - 3.9 10^3/mcL AO Workflow SS Lymphocytes/100 WBC (Bld) 29.9 % Invalid Interpretation Code 10.0 - 50.0 % AO Workflow SS MCH (RBC) [Entitic mass] 32.1 pg Invalid Interpretation Code 27.0 - 31.2 pg AO Workflow SS MCHC 34.4 G/dL Invalid Interpretation Code 31.8 - 35.4 G/dL AO Workflow SS MCV (RBC) [Entitic vol] 93.3 fL Invalid Interpretation Code 80.0 - 94.0 fL AO Workflow SS Monocyte, Absolute 0.6 103/mcL Invalid Interpretation Code 0.2 - 1.0 10^3/mcL AO Workflow SS Monocytes/100 WBC (Bld) 9.2 % Invalid Interpretation Code 1.7 - 13.0 % AO Workflow SS Neutrophil, Absolute 4.1 103/mcL Invalid Interpretation Code 2.9 - 6.2 10^3/mcL AO Workflow SS Neutrophils/100 WBC (Bld) 58.6 % Invalid Interpretation Code 37.0 - 80.0 % AO Workflow SS Platelet mean volume (Bld) [Entitic vol] 7.3 fL Invalid Interpretation Code 7.4 - 10.4 fL AO Workflow SS Platelets (Bld) [#/Vol] 292 103/mcL Invalid Interpretation Code 130 - 400 10^3/mcL AO Workflow SS RBC (Bld) [#/Vol] 5.07 106/mcL Invalid Interpretation Code 4.04 - 6.13 10^6/mcL AO Workflow SS WBC (Bld) [#/Vol] 7.0 103/mcL Invalid Interpretation Code 4.6 - 10.8 10^3/mcL AO Workflow SS Basophil percentageon 2021 Bilirubin [Mass/Vol] 0.40 mg/dL 0.20-1.00 [facility] Work Phone: Comment on above: For patients on eltr ombopag therapy, use of Dimension [place] TBIL is not recommended. Chloride [Moles/Vol] 103 mmol/L 98-107 [facility] Work Phone: Cholesterol [Mass/Vol] 242 mg/dL <200 [facility] Work Phone: Comment on above: <200 mg/dL Desirable 200-240 mg/dL Borderline >240 mg/dL High Risk Glucose [Mass/Vol] 99 mg/dL 74-106 [facility] Work Phone: Potassium [Moles/Vol] 4.1 mmol/L 3.5-5.1 [facility] Work Phone: Protein [Mass/Vol] 7.5 g/dL 6.4-8.2 [facility] Work Phone: Sodium [Moles/Vol] 138 mmol/L 136-145 [facility] Work Phone: Triglyceride [Mass/Vol] 159 mg/dL <199 [facility] Work Phone: Comment on above: The drugs N-Acetylcy steine and Metamizole may falsely depress this assay.Serum Triglycerides Reference Interval Normal <150 mg/dL Borderline high 150 - 199 mg/dL High 200 - 499 mg/dL Very High > or = 500 mg/dL Laboratory - Chemistry and C hemistry - challengeon 04-18-2022 ALP [Catalytic activity/Vol] 53 U/L 45-117 [facility] Work Phone: [phone] ALT [Catalytic activity/Vol] 59 U/L 16-61 [facility] Work Phone: [phone] CO2 [Moles/Vol] 31.0 mmol/L 21.0-32.0 [facility] Work Phone: [phone] Globulin (S) [Mass/Vol] 3.6 g/dL 2.2-4.2 [facility] Work Phone: [phone] Urea nitrogen/Creatinine [Mass ratio] 20.9 mg/mg 10-20 [facility] Work Phone: [phone] No Panel Informationon 04-18 Estimated GFR (MDRD) Amer 107 mL/min >60 [facility] Work Phone: Comment on above: GFR Calc Estimated GFR (MDRD) Non-Af Amer 88 mL/min >60 [facility] Work Phone: Comment on above: Non- GFR Calc Serum or plasma albumin melonie urement (mass/volume)on 04-18-2022 Albumin [Mass/Vol] 3.9 g/dL 3.2-5.0 [facility] Work Phone: [phone] Serum or plasma albumin/glob ulin mass ratioon 04-18-2022 Albumin/Globulin [Mass ratio] 1.1 {ratio} 0.9-2.4 [facility] Work Phone: [phone] Serum or plasma calcium melonie urement (mass/volume)on 04-18-2022 Calcium [Mass/Vol] 9.0 mg/dL 8.5-10.1 [facility] Work Phone: [phone] Serum or plasma cholesterol in HDL measurement (mass/volume)on 04-18-2022 Cholesterol in HDL [Mass/Vol] 48 mg/dL >40 [facility] Work Phone: [phone] Comment on above: The drugs N-Acetylcy steine and Metamizole may falsely depress this assay. Reference Range HDL <40 mg/dL Low HDL Cholesterol HDL >or= 60 mg/dL High HDL Cholesterol Serum or plasma cholesterol in VLDL measurement (mass/volume)on 04-18-2022 Cholesterol in VLDL [Mass/Vol] 32 mg/dL 5-40 [facility] Work Phone: Serum or plasma creatinine m easurement (mass/volume)on 04-18-2022 Creatinine [Mass/Vol] 0.96 mg/dL 0.70-1.[address] [facility] Work Phone: Comment on above: The validity of the calculated GFR & GFRAA in patients over 70 years has not been determined. Clinical correlation is essential. Serum or plasma low density lipoprotein (LDL) cholesterol measurement (mass/volume)on 04-18-2022 Cholesterol in LDL [Mass/Vol] 162 mg/dL 0-130 [facility] Work Phone: Serum or plasma urea nitroge n measurement (mass/volume)on 04-18-2022 Urea nitrogen [Mass/Vol] 20 mg/dL 7-18 [facility] Work Phone: Thin prep Papanicolaou smear with manual screeningon 04-18-2022 Thin prep Papanicolaou smear with manual screening 27 U/L 15-37 [facility] Work Phone: Thin prep Papanicolaou smear with manual screening 4 5-15 [facility] Work Phone: CNCOon 02-28-2022 [facility] Letter Text Normal [facility] [facility]21 CNOV Office Visit ([facility]) BARBIE CAPUTO ([id number]) 1970 M Date Time Provider Department 06/23/21 9:15 AM GLENDA SHAH [facility] During your visit today, we recorded the following information about you: Temperature Pulse Respiration Blood pressure 98.7 degrees 83/minute 16/minute 130/90 Weight 111.5 kg Glenda Shah, HAYDE 06/23/2021 9:28 AM Signed CC: Patient presents with: Nasal Congestion: CONNOLLY x3 weeks HPI: Barbie Caputo is a 51 year old male who presents to the office with complaint of sinus symptoms for 3 weeks. Diagnosed with COVID 05/26, all symptoms resolved except for headache Symptoms are staying the same Associated symptoms includes sore throat, facial pain/pressure, post nasal drip and headache. Denies fever, ear pain, cough, wheezing and dyspnea. Treatments tried include Ibuprofen with minor relief of symptoms. Smoker: No Seasonal/environment al allergies: No The ROS is otherwise negative. The patient's pmh, medications, allergies, and past visits are reviewed. PHYSICAL EXAM: BP 130/90 Pulse 83 Temp 37.1 ?C (98.7 ?F) Resp 16 Wt 111.5 kg (245 lb 12.8 oz) SpO2 97% BMI 34.28 kg/m? General appearance: tired/ill appearing, alert, cooperative, pleasant, in no acute distress Head: Normocephalic Eyes: conjunctiva pink and moist, no icterus, sclera white, non-injected Ears: Right ear: External ear/canal- Normal, TM - clear with good landmarks. Left ear: External ear/canal- Normal, TM - clear with good landmarks Nose: mucosa erythematous and swollen, no sinus tenderness. Oropharynx:No erythema, exudates or tonsillar hypertrophy. Neck:supple and no adenopathy Heart: Negative. RRR without obvious murmur, gallop, or rubs. No ectopy. Lungs: clear to auscultation, without rales or wheeze, good air exchange ASSESSMENT/PLAN: 1. Acute non-recurrent sinusitis, unspecified location - ICD9: 461.9, ICD10: J01.90 - Will begin treatment with Augmentin 875 mg PO BID for 7 days - Supportive care with plenty of fluids, rest, and analgesia prn. - Follow up in 3-5 days if symptoms persist or worsen. Prescription instructions reviewed with patient as applicable. Potential red flag symptoms discussed with the patient. Reviewed appropriate action plan to take if red flag symptoms occur. Patient agreeable to treatment plan. Glenda Older, SAUSAGE CUTTER.RECOVERY COORDINATOR Glenda Older, SAUSAGE CUTTER.RECOVERY COORDINATOR 06/23/2021 9:24 AM Signed [facility] PATIENT INFO ACUTE SINUSITIS OVERVIEW Rhinosinusitis, or more commonly sinusitis, is the medical term for inflammation (swelling) of the lining of the sinuses and nose. The sinuses are the hollow areas within the facial bones that are connected to the nasal openings. The sinuses are lined with mucous membranes, similar to the inside of the nose. There are two main types of sinusitis: acute and chronic. Acute sinusitis is inflammation that lasts for less than four weeks while chronic sinusitis lasts for more than 12 weeks. Acute sinusitis is common, affecting approximately one million people per year in the [place]. ACUTE SINUSITIS CAUSES The most common cause of acute sinusitis is a viral infection associated with the common cold. Bacterial sinusitis occurs much less commonly, in only 0.5 to 2 percent of cases, usually as a complication of viral sinusitis. Because antibiotics are effective only against bacterial, and not viral, infections, most people do not need antibiotics for acute sinusitis. ACUTE SINUSITIS SYMPTOMS Symptoms of acute sinusitis include: ? Nasal congestion or blockage ? Thick, yellow to green discharge from the nose ? Pain in the teeth ? Pain or pressure in the face that is worse when bending forwards Other acute sinusitis symptoms can include fever (temperature greater than 100.4?F or 38?C), fatigue, cough, difficulty or inability to smell, ear pressure or fullness, headache, and bad breath. In most cases, these symptoms develop over the course of one day and begin to improve within seven to 10 days. DO I NEED TO BE EXAMINED? It is difficult to know if you have a viral or bacterial sinus infection initially. However, most people with a viral infection improve without treatment within seven to 10 days after symptoms begin. Bacterial sinusitis also sometimes improves without treatment, although it can also worsen and require treatment. If one or more of the following bothersome symptoms last more than seven days, an examination by a healthcare provider is recommended: ? Thick, yellow to green discharge from the nose ? Face or tooth pain, especially if it is only on one side ? Tenderness over the maxillary sinuses (located on the left and right side of the nose, inside the cheekbones) ? Symptoms that initially improve and then worsen When to seek immediate help ? If you have one or more of the following symptoms, you should seek medical atten (more content not included)... Normal [facility] CNOVon 05-26-2021 CNOV Office Visit ([facility]) YAZMIN CAPUTOJanett Cintron ([id number]) 1970 M Date Time Provider Department 05/26/21 9:00 AM REMBERTO CALDERON [facility] During your visit today, we recorded the following information about you: Temperature Pulse Respiration Blood pressure 98.4 degrees 76/minute 16/minute 128/76 Weight 112 kg Remberto Calderon APRN.CNP 05/26/2021 10:13 AM Signed Subjective HPI HPI Barbie Cintron Harshal is a 51 year old male who presents today for CC of congestion, loss taste/smell. This started over 1 week ago. Has tried otc medication for relief. Symptoms are worsened by nothing. Risk factors family currently with covid. .Patient presents with: Exposure: and kids x over a week, patient has no taste or smell PAST MEDICAL HISTORY Diagnosis Date - Bilateral inguinal hernia - Sterilization - Superficial thrombophlebitis 1982 after knee injury. - Umbilical hernia without mention of obstruction or gangrene PAST SURGICAL HISTORY Procedure Laterality Date - LAP REPAIR INTIAL INGUINAL HERNIA 08/26/12 - PAST SURGICAL HISTORY OF 1982 L knee injury - REPAIR UMBILICAL ELOISE,5+Y/O,REDUC 08/26/12 - VASECTOMY 08/26/12 ALLERGIES Patient has no known allergies. MEDICATIONS Glucosamine-Chondroi t-Vit C-Mn (GLUCOSAMINE CHONDROITIN MAXSTR) 500-400 mg cap Take 1 capsule by mouth three times daily. naproxen (NAPROSYN) 500 mg tablet Take 1 tablet by mouth twice daily as needed (for pain/inflammation). Take with food. No family history on file. Social History Tobacco Use - Smoking status: Never Smoker - Smokeless tobacco: Former User - Tobacco comment: smokeless tobacco since age 17. continues to chew. Substance Use Topics - Alcohol use: Yes Alcohol/week: 60.0 standard drinks Types: 24 Cans of Beer (12oz) per week Comment: upswing in 2010 or so. - Drug use: No ROS Objective Blood pressure 128/76, pulse 76, temperature 36.9 ?C (98.4 ?F), resp. rate 16, weight 112 kg (247 lb), SpO2 96 %. Physical Exam Constitutional: General: He is not in acute distress. Appearance: He is not toxic-appearing or diaphoretic. HENT: Head: Normocephalic and atraumatic. Nose: Congestion present. Cardiovascular: Rate and Rhythm: Normal rate and regular rhythm. Heart sounds: Normal heart sounds, S1 normal and S2 normal. Pulmonary: Effort: Pulmonary effort is normal. Breath sounds: Normal breath sounds. Lymphadenopathy: Cervical: No cervical adenopathy. Right cervical: No superficial cervical adenopathy. Left cervical: No superficial cervical adenopathy. Neurological: Mental Status: He is alert and oriented to person, place, and time. Gait: Gait is intact. ASSESSMENT/PLAN: 1. Suspected COVID-19 virus infection - ICD9: V01.79, ICD10: Z20.822 (primary diagnosis) Discussed quarantine, social distancing otc medications discussed Push fluids -If you experience chest pain/shortness of breath go to ER - 2019 CORONAVIRUS 2. Close exposure to COVID-19 virus - ICD9: V01.79, ICD10: Z20.822 - 2019 CORONAVIRUS Agrees to plan Remberto Calderon APRN.RECOVERY COORDINATOR Referring Provider: SELF [200] Allergies As of Date: 05/26/2021 (No Known Allergies) Date Reviewed: 05/26/2021 Reviewed by: Leila Castañeda - Fully Assessed Reason for Visit: Exposure [254] Cmt: and kids x over a week, patient has no taste or smell Primary Visit Diagnosis:Suspected COVID-19 virus infection [Z20.822] Other Visit Diagnosis:Close exposure to COVID-19 virus [Z20.822] Order(s):2019 CORONAVIRUS [SQCOVID] Order #: [id number] FUTURE Prescriptions as of 05/26/2021 - Glucosamine-Chondroi t-Vit C-Mn (GLUCOSAMINE CHONDROITIN MAXSTR) 500-400 mg cap Take 1 capsule by mouth three times daily. - naproxen (NAPROSYN) 500 mg tablet Take 1 tablet by mouth twice daily as needed (for pain/inflammation). Take with food. Meds Comments as of 05/27/2018: Vitamin B,C,D,E Zebulon 3-6 Unsure of dosage Problem List As Of Date 05/26/2021 Noted Resolved Inguinal hernia bilateral, non-recurrent [K40.2*06/01/2012 Umbilical hernia without mention of obstruction*06/01/20 12 Anxiety [F41.9] 10/05/2012 Testicular pain, right [N50.811] 11/12/2012 Hx of blood clots [Z86.718] 05/27/2018 Letter Text Letter Text Encounter Status:Closed by REMBERTO CALDERON on 05/26/21 Normal [facility] Coronavirus 2019on 1 SARS-CoV-2 (COVID-19) RNA ANDREW+probe Ql (Unsp spec) UPPER RESPIRATORY TRACT SWAB Normal [facility] Comment on above: Performed By: #### C OVID #### [place] [id number] SARS-CoV-2 (COVID-19) RNA ANDREW+probe Ql (Unsp spec) Positive for COVID19 (SARS CoV2) by RT-PCR or equivalent method. Critically abnormal Negative for COVID19 (SARS CoV2) by RT-PCR or equivalent method. [facility] Comment on above: Result Comment: This test was developed and its performance characteristics determined by [facility] [place]. This test has been authorized by FDA under an Emergency Use Authorization (EUA). This test has been validated in accordance with the FDA's Guidance Document Policy for Diagnostics Testing in Laboratories Certified to Perform High Complexity Testing under CLIA prior to Emergency use Authorization for Coronavirus Disease 2019 during the Public Health Emergency issued on October 01, 2019. Test performed by [facility], [facility] [place], [address] [place] [id number]. Performed By: #### C OVID #### [address] [id number] Vital Signs Date Time Vital Sign Value Performing Clinician Facility 01-17-2025 15:47-0400 Diastolic blood pressure 82 mm[Hg] Dr. Joana Yanes MD Work Phone: [facility] 01-17-2025 15:47-0400 Systolic blood pressure 136 mm[Hg] Dr. Jaona Yanes MD Work Phone: [facility] 01-17-2025 14:56-0400 Body height 180.[address] Joana Yanes MD Work Phone: [facility] 01-17-2025 14:56-0400 Body mass index (BMI) [Ratio] 36.1 kg/m2 Dr. Joana Yanes MD Work Phone: [facility] 01-17-2025 14:56-0400 Body temperature 96.1 [degF] Dr. Joana Yanes MD Work Phone: [facility] 01-17-2025 14:56-0400 Body weight 117.[address] Joana Yanes MD Work Phone: [facility] 01-17-2025 14:56-0400 Heart rate 89 /min Dr. Joana Yanes MD Work Phone: [facility] 01-17-2025 14:56-0400 Inhaled oxygen flow rate 94 L/min Dr. Joana Yanes MD Work Phone: [facility] 01-17-2025 14:56-0400 Respiratory rate 16 /min Dr. Joana Yanes MD Work Phone: [facility] 01-17-2025 14:56-0400 SaO2% (BldA) [Mass fraction] 94 % Dr. Joana Yanes MD Work Phone: [facility] 11-10-2024 00:38-0400 Heart rate 98 /min Dr. Joana Yanes MD Work Phone: [facility] 11-10-2024 00:38-0400 Respiratory rate 18 /min Dr. Joana Yanes MD Work Phone: [facility] 11-09-2024 23:55-0400 Body temperature 98.4 [degF] Dr. Joana Yanes MD Work Phone: [facility] 11-09-2024 23:55-0400 Diastolic blood pressure 85 mm[Hg] Dr. Joana Yanes MD Work Phone: [facility] 11-09-2024 23:55-0400 SaO2% (BldA) [Mass fraction] 97 % Dr. Joana Yanes MD Work Phone: [facility] 11-09-2024 23:55-0400 Systolic blood pressure 136 mm[Hg] Dr. Joana Yanes MD Work Phone: [facility] 11-09-2024 23:50-0400 Body height 180.[address] Joana Yanes MD Work Phone: [facility] 11-09-2024 23:50-0400 Body mass index (BMI) [Ratio] 35.8 kg/m2 Dr. Joana Yanes MD Work Phone: [facility] 11-09-2024 23:50-0400 Body weight 116.[address] Joana Yanes MD Work Phone: [facility] 11-06-2024 09:04-0400 Body temperature 98.1 [degF] Dr. Joana Yanes MD Work Phone: [facility] 11-06-2024 09:04-0400 Diastolic blood pressure 82 mm[Hg] Dr. Joana Yanes MD Work Phone: [facility] 11-06-2024 09:04-0400 Heart rate 71 /min Dr. Joana Yanes MD Work Phone: [facility] 11-06-2024 09:04-0400 Respiratory rate 16 /min Dr. Joana Yanes MD Work Phone: [facility] 11-06-2024 09:04-0400 SaO2% (BldA) [Mass fraction] 94 % Dr. Joana Yanes MD Work Phone: [facility] 11-06-2024 09:04-0400 Systolic blood pressure 142 mm[Hg] Dr. Joana Yanes MD Work Phone: [facility] 08-09-2024 08:03-0500 Body temperature 97.7 [degF] Dr. Joana Yanes MD Work Phone: [facility] 08-09-2024 08:03-0500 Diastolic blood pressure 90 mm[Hg] Dr. Joana Yanes MD Work Phone: [facility] 08-09-2024 08:03-0500 Heart rate 94 /min Dr. Joana Yanes MD Work Phone: [facility] 08-09-2024 08:03-0500 Respiratory rate 18 /min Dr. Joana Yanes MD Work Phone: [facility] 08-09-2024 08:03-0500 SaO2% (BldA) [Mass fraction] 94 % Dr. Joana Yanes MD Work Phone: [facility] 08-09-2024 08:03-0500 Systolic blood pressure 150 mm[Hg] Dr. Joana Yanes MD Work Phone: [facility] 08-08-2024 15:27-0500 Body mass index (BMI) [Ratio] 35.4 kg/m2 Dr. Joana Yanes MD Work Phone: [facility] 08-08-2024 15:27-0500 Body weight 115.[address] Joana Yanes MD Work Phone: [facility] 08-08-2024 15:00-0500 Inhaled oxygen flow rate 4 L/min Dr. Joana Yanes MD Work Phone: [facility] 07-19-2024 14:16-0500 Body mass index (BMI) [Ratio] 35.1 kg/m2 Dr. Joana Yanes MD Work Phone: [facility] 07-19-2024 14:16-0500 Body temperature 97 [degF] Dr. Joana Yanes MD Work Phone: [facility] 07-19-2024 14:16-0500 Body weight 114.[address] Joana Yanes MD Work Phone: [facility] 07-19-2024 14:16-0500 Diastolic blood pressure 70 mm[Hg] Dr. Joana Yanes MD Work Phone: [facility] 07-19-2024 14:16-0500 Heart rate 83 /min Dr. Joana Yanes MD Work Phone: [facility] 07-19-2024 14:16-0500 Respiratory rate 16 /min Dr. Joana Yanes MD Work Phone: [facility] 07-19-2024 14:16-0500 SaO2% (BldA) [Mass fraction] 95 % Dr. Joana Yanes MD Work Phone: [facility] 07-19-2024 14:16-0500 Systolic blood pressure 140 mm[Hg] Dr. Joana Yanes MD Work Phone: [facility] 11-10-2023 16:25-0400 Diastolic blood pressure 96 mm[Hg] Dr. Joana Yanes Work Phone: [facility] 11-10-2023 16:25-0400 Systolic blood pressure 136 mm[Hg] Dr. Joana Yanes Work Phone: [facility] 11-10-2023 13:53-0400 Body height 180.[address] Joana Yanes Work Phone: [facility] 11-10-2023 13:53-0400 Body mass index (BMI) [Ratio] 36.2 kg/m2 Dr. Joana Yanes Work Phone: [facility] 11-10-2023 13:53-0400 Body temperature 97.5 [degF] Dr. Joana Yanes Work Phone: [facility] 11-10-2023 13:53-0400 Body weight 117.[address] Joana Yanes Work Phone: [facility] 11-10-2023 13:53-0400 Heart rate 74 /min Dr. Joana Yanes Work Phone: [facility] 11-10-2023 13:53-0400 Respiratory rate 16 /min Dr. Joana Yanes Work Phone: [facility] 11-10-2023 13:53-0400 SaO2% (BldA) [Mass fraction] 96 % Dr. Joana Yanes Work Phone: [facility] 08-19-2022 11:04-0500 Body height 180.[address] Joana Yanes Work Phone: [facility] 08-19-2022 11:04-0500 Body temperature 96.2 [degF] Dr. Joana Yanes Work Phone: [facility] 08-19-2022 11:04-0500 Diastolic blood pressure 88 mm[Hg] Dr. Joana Yanes Work Phone: [facility] 08-19-2022 11:04-0500 Heart rate 82 /min Dr. Joana Yanes Work Phone: [facility] 08-19-2022 11:04-0500 Respiratory rate 18 /min Dr. Joana Yanes Work Phone: [facility] 08-19-2022 11:04-0500 SaO2% (BldA) [Mass fraction] 97 % Dr. Joana Yanes Work Phone: [facility] 08-19-2022 11:04-0500 Systolic blood pressure 144 mm[Hg] Dr. Joana Yanes Work Phone: [facility] 05-09-2022 16:41-0400 Diastolic Blood Pressure NBP [address] COLIN EWING MD [facility] 05-09-2022 16:41-0400 Heart rate 64 /min DR COLIN EWING MD [facility] 05-09-2022 16:41-0400 Respiratory rate 14 /min DR COLIN EWING MD [facility] 05-09-2022 16:41-0400 Systolic Blood Pressure NBP [address] COLIN EWING MD [facility] 05-09-2022 15:41-0400 Diastolic Blood Pressure NBP [address] COLIN EWING MD [facility] 05-09-2022 15:41-0400 Heart rate 74 /min DR COLIN EWING MD [facility] 05-09-2022 15:41-0400 Respiratory rate 12 /min DR COLIN EWING MD [facility] 05-09-2022 15:41-0400 Systolic Blood Pressure NBP [address] COLIN EWING MD [facility] 05-09-2022 15:36-0400 Diastolic Blood Pressure NBP [address] COLIN EWING MD [facility] 05-09-2022 15:36-0400 Heart rate 83 /min DR COLIN EWING MD [facility] 05-09-2022 15:36-0400 Respiratory rate 18 /min DR COLIN EWING MD [facility] 05-09-2022 15:36-0400 Systolic Blood Pressure NBP [address] COLIN EWING MD [facility] 05-09-2022 15:04-0400 Body temperature 96.62 [degF] DR COLIN EWING MD [facility] 05-09-2022 10:50-0400 Heart rate 74 /min DR COLIN EWING MD [facility] 05-09-2022 09:57-0400 Body height [address] COLIN EWING MD [facility] 05-09-2022 09:57-0400 Body temperature 98.6 [degF] DR COLIN EWING MD [facility] 05-09-2022 09:57-0400 Body weight [address] COLIN EWING MD [facility] 05-09-2022 09:57-0400 Heart rate 73 /min DR COLIN EWING MD [facility] 04-29-2022 13:36-0400 Body height 180.[address] COLIN EWING MD [facility] 04-29-2022 13:36-0400 Body weight 106.[address] COLIN EWING MD [facility] 04-29-2022 13:36-0400 Body weight 32.85 kg/m2 DR COLIN EWING MD [facility] 04-29-2022 13:36-0400 diastolic 80 mm[Hg] DR COLIN EWING MD [facility] 04-29-2022 13:36-0400 Heart rate 65 /min DR COLIN EWING MD [facility] 04-29-2022 13:36-0400 systolic 134 mm[Hg] DR COLIN EWING MD [facility] 02-19-2022 14:45-0400 Body height 180.34 cm No Primary Care Physician [facility] Work Phone: 02-19-2022 14:45-0400 Body mass index (BMI) [Ratio] 33.3 kg/m2 No Primary Care Physician [facility] Work Phone: 02-19-2022 14:45-0400 Body temperature 98.6 [degF] No Primary Care Physician [facility] Work Phone: 02-19-2022 14:45-0400 Body weight 108.4 kg No Primary Care Physician [facility] Work Phone: 02-19-2022 14:45-0400 Diastolic blood pressure 82 mm[Hg] No Primary Care Physician [facility] Work Phone: 02-19-2022 14:45-0400 Heart rate 82 /min No Primary Care Physician [facility] Work Phone: 02-19-2022 14:45-0400 Respiratory rate 14 /min No Primary Care Physician [facility] Work Phone: 02-19-2022 14:45-0400 SaO2% (BldA) [Mass fraction] 96 % No Primary Care Physician [facility] Work Phone: 02-19-2022 14:45-0400 Systolic blood pressure 132 mm[Hg] No Primary Care Physician [facility] Work Phone: Encounters Encounter Date Encounter Type Care Provider Facility Start: 01-17-2025 End: 01-17-[address] Joana Yanes MD -[facility] Work Phone: Start: 01-17-2025 End: 01-17-[address] Joana Yanes MD Work Phone: [facility] Work Phone: Start: 12-29-2024 End: 12-29-[address] Joana Yanes MD Work Phone: [facility] Work Phone: Start: 12-29-2024 End: 12-29-[address] Joana Yanes MD -Physical Therapy Work Phone: Start: 11-09-2024 End: 11-10-2024 Emergency department patient visit Dr. Joana Yanes MD Work Phone: -Emergency Department Work Phone: Start: 11-06-2024 End: 11-06-2024 Patient encounter procedure Lester Mckeon VISITOR SERVICES TECHNICIAN-C [facility] Work Phone: Start: 11-06-2024 End: 11-06-2024 ambulatory Joana Yanes [place] [place]: 08-11-2024 Encounter for other preprocedural examination Thelma Goel [facility] Start: 08-09-2024 Non-patient / Non-visit Dr. Linda Montes MD -[facility] Work Phone: Start: 08-08-2024 Non-patient / Non-visit Dr. Evelia Goel MD -[facility] Work Phone: Start: 08-08-2024 ambulatory Thelma Goel [place] [facility] Start: 08-08-2024 End: 08-09-2024 ambulatory Joana Delgadolay Facility:[facility] Start: 08-08-2024 End: 08-09-2024 Evaluation and management of inpatient Dr. Colin Ewing MD -[facility] Work Phone: Start: 07-19-2024 End: 07-19-2024 ambulatory Joana Yanes Facility:[facility] Start: 07-19-2024 End: 07-19-[address] Joana Yanes MD -[facility] Work Phone: Start: 07-19-2024 End: 07-19-[address] Joana Yanes MD [facility] Start: 07-12-2024 End: 07-12-2024 ambulatory Joana Yanes Facility:[facility] Start: 06-13-2024 End: 06-13-2024 ambulatory Joana Joaquín Facility:[facility] Start: 05-06-2024 ambulatory Joana Yanes [place] Start: 05-06-2024 End: 05-06-2024 ambulatory Colin Ewing Facility:[facility] Start: 04-13-2024 End: 04-13-2024 ambulatory Joana Yanes [place] Start: 04-05-2024 End: 04-05-2024 ambulatory Jacoby Jeter Facility:[facility] Start: 04-03-2024 End: 04-03-2024 Emergency department patient visit Terrancejigar Marteo Facility:[facility] Start: 03-28-2024 ambulatory Nilsa Erwin y:[facility] Start: 03-28-2024 End: 03-28-2024 ambulatory Joana Delgadolay Facility:[facility] Start: 02-24-2024 End: 02-24-2024 ambulatory Joana Yanes Facility:[facility] Start: 02-03-2024 End: 02-03-2024 ambulatory Bay Hayden Facility:[facility] Start: 11-10-2023 End: 11-10-[address] Joana Yanes Work Phone: [facility] Work Phone: Start: 11-10-2023 End: 11-10-[address] Joana Yanes Work Phone: [facility]-Radiology, [facility] Work Phone: Start: 11-10-2023 End: 11-10-[address] Joana Yanes Work Phone: [facility] Work Phone: Start: 09-20-2022 End: 09-20-[address] Joana Yanes Work Phone: [facility] Work Phone: Start: 09-20-2022 End: 09-20-[address] Joana Yanes Work Phone: [facility] Start: 08-21-2022 Non-patient / Non-visit Dr. Mcarthur Work Phone: [facility] Start: 08-21-2022 End: 08-21-[address] Joana Yanes Work Phone: [facility] Work Phone: Start: 08-21-2022 End: 08-21-[address] Joana Yanes Work Phone[facility] Start: 08-19-2022 End: 08-19-[address] Joana Yanes Work Phone: [facility] Medicine Start: 06-18-2022 Non-patient / Non-visit Dr. Mcarthur Work Phone: [facility] Start: 06-18-2022 End: 06-18-[address] Joana Yanes Work Phone: [facility] Work Phone: Start: 06-18-2022 End: 06-18-[address] Joana Yanes Work Phone: [facility] Start: 05-09-2022 End: 05-09-2022 ambulatory COLIN EWING MD Facility:B Start: 05-09-2022 End: 05-09-[address] COLIN EWING MD [facility] Start: 04-29-2022 End: 04-30-2022 ambulatory COLIN EWING MD Facility:B Start: 04-29-2022 End: 04-29-[address] COLIN EWING MD [facility] Start: 04-18-2022 End: 04-18-2022 ambulatory No Primary Care Physician [facility] Work Phone: Start: 04-18-2022 End: 04-18-2022 Patient encounter procedure No Primary Care Physician [facility]-Laboratory Start: 03-14-2022 End: 03-14-2022 Patient encounter procedure No Primary Care Physician [facility]-Cat Scan, [facility] Start: 02-19-2022 End: 02-19-2022 Patient encounter procedure No Primary Care Physician [facility] [facility] Procedures Date Procedure Procedure Detail Performing Clinician Start: 11-10-2024 SARS-CoV-2, Influenz a & RSV (PCR) Dr. Joana Yanes MD Work Phone: Start: 11-10-2024 X-ray of chest, PA a nd lateral views Dr. Joana Yanes MD Work Phone: Start: 08-08-2024 Plain X-ray of hip Dr. Joana Yanes MD Work Phone: Start: 08-08-2024 Fluoroscopic guidance Janett Yanes MD Work Phone: Start: 08-08-2024 Plain x-ray of pelvi s and lower extremity Dr. Joana Yanes MD Work Phone: Start: 07-12-2024 Methicillin resistan t Staphylococcus aureus screening test Dr. Joana Yanes MD Work Phone: Start: 11-10-2023 Plain chest X-ray Dr. Alo Yanes Work Phone: Start: 09-20-2022 Plain x-ray of pelvi s and lower extremity Dr. Joana Yanes Work Phone: Start: 03-14-2022 CT of upper limb wit hout contrast No Primary Care Physician Inguinal hernia (disorder) D Huey EWING MD Comment on above: X3 Knee region structur e (body structure) DR COLIN EWING MD Comment on above: RIGHT KNEE SURGERY ( CHILD) Vasectomy DR COLIN Arzate MD Plan of Treatment Date Care Activity Detail Author Start: 11-10-2024 [facility] Start: 11-09-2024 [facility] Start: 08-09-2024 Patient discharge [facility] Start: 08-08-2024 Following clinical pathway protocol [facility] Start: 08-08-2024 Anesthesia open total hip arthroplasty ANESTH HIP ARTHROPLASTY [facility] Start: 08-08-2024 Arthrp acetblr/prox fem prostc agrft/algrft TOTAL HIP ARTHROPLASTY [facility] Start: 08-08-2024 Provision of overbed trapeze [facility] Start: 08-08-2024 Recommendation to continue with treatment [facility] Start: 08-08-2024 Ambulation therapy management [facility] Start: 08-08-2024 Application of device [facility] Start: 08-08-2024 Assessment of risk of venous thromboembolism [facility] Start: 08-08-2024 Catheterization of vein [facility] Start: 08-08-2024 Consultation [facility] Start: 08-08-2024 Exercises [facility] Start: 08-08-2024 Following clinical pathway protocol [facility] Start: 08-08-2024 Incentive spirometry [facility] Start: 08-08-2024 Introduction of urinary catheter [facility] Start: 08-08-2024 Measuring intake and output [facility] Start: 08-08-2024 Neurovascular assessment [facility] Start: 08-08-2024 Patient education [facility] Start: 08-08-2024 Procedure discontinued [facility] Start: 08-08-2024 Provision of activity privileges [facility] Start: 08-08-2024 Referral to occupational therapist [facility] Start: 08-08-2024 Referral to service [facility] Start: 08-08-2024 Vital signs measurements [facility] Start: 08-08-2024 Wound care [facility] Start: 08-08-2024 [facility] Start: 08-08-2024 Admission procedure [facility] Patient Education ED URI, Viral W/ Wheezing (Adult) [facility] Work Phone: Patient referral [facility] Work Phone: [employer] [facility] Immunizations Immunization Date Immunization Notes Care Provider Fa cility 01-18-2021 Covid (Pfizer) No Primary Ca re Physician [facility] 12-24-2020 Covid (Pfizer) No Primary Ca re Physician [facility] Payers Date Payer Category Payer Self-pay [id number] 2022 Unknown [id number] 1970 Unknown [id number] 2.16.8 [id number] 1970 Unknown [id number] 2.16.8 [id number] Unknown [place] [id number] Unknown [id number] Unknown [id number] 2.16.8 40.1.891110.3.579.2.462 Unknown [id number] 2.16.8 40.1.438044.3.579.2.462 Unknown [id number] 2.16.8 40.1.314174.3.579.2.462 Unknown [id number] 2.16.8 40.1.418070.3.579.2.462 Unknown [id number] 2.16.8 40.1.072322.3.579.2.462 Unknown [id number] 2.16.8 40.1.262802.3.579.2.462 Unknown [id number] 2.16.8 40.1.641452.3.579.2.462 Unknown [id number] 2.16.8 40.1.267474.3.579.2.462 Unknown [id number] 2.16.8 40.1.505262.3.579.2.462 Unknown [id number] 2.16.8 40.1.953858.3.579.2.462 Unknown [id number] 2.16.8 40.1.172891.3.579.2.462 Unknown [id number] 2.16.8 40.1.778415.3.579.2.462 Unknown [id number] 2.16.8 40.1.142153.3.579.2.462 Unknown [id number] 2.16.8 40.1.065492.3.579.2.462 Unknown [id number] 2.16.8 40.1.040046.3.579.2.462 Unknown [id number] 2.16.8 40.1.536559.3.579.2.462 Unknown [id number] 2.16.8 40.1.430061.3.579.2.462 Unknown [id number] 2.16.8 40.1.704264.3.579.2.462 Unknown [id number] 2.16.8 40.1.941826.3.579.2.462 Social History Date Type Detail Facility Start: 02-19-2022 End: 11-09-2023 Tobacco smoking status AZIS Unknown if ever smoked [facility] Start: 1970 Sex Assigned At Male A [facility] Tobacco Nicotine Use: QU IT SNUFF 1 MONTH AGO. Type: Oral (Snuff, Chew). [facility] Tobacco smoking status No Smokin g Status Entered [facility] Start: 11-09-2024 End: 01-17-2025 Tobacco smoking status NHIS Never smoked tobacco (finding) [facility] Start: 11-10-2024 Sex Male (finding) [facility] Medical Equipment Procedure Code Equipment Code Equipment Origin al Text Equipment Identifier Dates Minimally invasive total replacement of hip joint by anterior approach ([id number]) Ceramic femoral head prosthesis ()[id number] FDA Start: 08-08-2024 Minimally invasive total replacement of hip joint by anterior approach ([id number]) Ceramic femoral head prosthesis ()[id number] FDA Start: 08-08-2024 Minimally invasive total replacement of hip joint by anterior approach ([id number]) Acetabular shell ()[id number] FDA Start: 08-08-2024 Minimally invasive total replacement of hip joint by anterior approach ([id number]) Coated hip femur prosthesis, modular ()[id number] FDA Start: 08-08-2024 Minimally invasive total replacement of hip joint by anterior approach ([id number]) Non-constrained polyethylene acetabular liner ()[id number] 2059 FDA Start: 08-08-2024 Minimally invasive total replacement of hip joint by anterior approach ([id number]) Non-constrained polyethylene acetabular liner ()[id number] JI FDA Start: 08-08-2024 Minimally invasive total replacement of hip joint by anterior approach ([id number]) Acetabular shell ()[id number] FDA Start: 08-08-2024 Goals Date Patient Goal Desired Activity /State Functional Status Date Assessment Result Facility 08-09-2024 Functional status Chair [facility] Work Phone: 05-09-2022 Functional Status Independent [facility] 05-09-2022 Functional Status Maintained, More than 8 hours [facility] 04-29-2022 Functional Status Sensory Deficits None [facility] Mental Status Date Assessment Result Facility 08-09-2024 Cognitive function Level Of Cons ciousness Awake;Alert;Appropriate;Follow s Commands [facility] Work Phone: 08-08-2024 Cognitive function Voice/Name [facility] Work Phone: 05-09-2022 Mental Status Oriented x 4 [facility] 05-09-2022 Mental Status [facility] Clinical Notes 05-26-2021 to 12-29-2024 Note Date & Type Note Facility 12-29-2024 Discharge summary Note Date/Time December 29, 2024 7:00p m [facility] Physical Therapy [facility] [address] [place] [address] / REHABILITATION SERVICES DISCHARGE SUMMARY MR#: [id number] Acct: [id number] Name: BARBIE CAPUTO Rep #: [id number] : 1970 54 From: Aki Fleming DPT, OCS, CSCS Referring Dr.: Dr. Joana Yanes MD Status: REG RCR Insurance: [facility] S[employer] PAY INSURANCE Discharge Summary D/C summary: It has been my pleasure to treat BARBIE CAPUTO referred by Dr. Joana Yanes MD, with the diagnosis of CHRISTINE- orthoitcs for foot achiness for a total of 2 visit(s). Discharge Date: 12/29/24 Please see the following information for a summary of their discharge status. Subjective Subjective: Ready to get orthoitc s and giuve them a try. Pain B foot pain arch: Pain Intensity (Out of 10): 2 Objective Objective/Function: good feel and support in them on day one. Goals Goal 1:: fit for and I in use of custom orthotics Goal Progress: Goal Met Plan Plan: d/c to orthotic use. D/C Information d/c sentence: If there are questions or concerns regarding this patient's physical therapy, please feel free to call me at [phone]. Thank you for the referral of thispatient. Sincerely, Aki Fleming DPT, OCS, CSCS <Electronically signed by Aki Fleming DPT, OCS, CSCS> 12/29/24 1718 CC: Dr. Joana Yanes MD ~ EBG Signed [facility] Work Phone: 1(595) 963-358505-29-2025 Discharge summary [facility] Physical Therapy [facility] [address] [place] [address] / REHABILITATION SERVICES DISCHARGE SUMMARY MR#: [id number] Acct: [id number] Name: BARBIE CAPUTO Rep #: [id number] 2 : 1970 54 From: Aki Fleming DPT, OCS, CSCS Referring Dr.: Dr. Joana Yanes MD Status: REG RCR Insurance: [facility] SELF PAY INSURANCE Discharge Summary D/C summary: It has been my pleasure to treat BARBIE CAPUTO referred by Dr. Joana Yanes MD, with the diagnosis of CHRISTINE- orthoitcs for foot achiness for a total of 2 visit(s). Discharge Date: 12/29/24 Please see the following information for a summary of their discharge status. Subjective Subjective: Ready to get orthoitc s and giuve them a try. Pain B foot pain arch: Pain Intensity (Out of 10): 2 Objective Objective/Function: good feel and support in them on day one. Goals Goal 1:: fit for and I in use of custom orthotics Goal Progress: Goal Met Plan Plan: d/c to orthotic use. D/C Information d/c sentence: If there are questions or concerns regarding this patient's physical therapy, please feel free to call me at [phone]. Thank you for the referral of thispatient. Sincerely, Aki Fleming DPT, OCS, CSCS 12/29/24 1718 CC: Dr. Joana Yanes MD ~ EBG Signed [facility]04-10-2025 Radiology Diagnostic study note [facility] Imaging Services [address] [place] [address] Chest PA and Lateral MR#: [id number] Acct: [id number] Name: BARBIE CAPUTO Rep #: [id number] : 1970 M 54 From: Zully Henry MD PCP: Dr. Joana Yanes MD Status: REG ER Study:Chest PA and Lateral Date of Exam: 11/10/24 Exam# [id number] Ordering Dr: Myrna Herbert DO PROCEDURE: CHEST PA AND LATERAL 11/09/2024 REASON FOR EXAM: COUGH TECHNIQUE: Frontal and lateral views of the chest. COMPARISON: None available FINDINGS: Hardware: None Heart: Cardiomediastinal silhouette is within normal limits. Normal pulmonary vascularity. Mediastinum: Unremarkable Lungs: No focal consolidation Bones: No acute fractures. RAD/Chest PA and Lateral IMPRESSION: No acute cardiopulmonary abnormality. Reading Location: [facility] CC: Dr. Joana Yanes MD; Orville Herbert DO ~ Director Hris: Signed [facility]04-06-2025 Evaluation note* Diagnosis Onset Date Resolution Status Admit Date URI (upper respiratory infection) ac resighini November 06, 2024 9:00am [facility] Work Phone: 1(249) 966-381604-06-2025 Evaluation note* Diagnosis Onset Date Resolution Status Admit Date URI (upper respiratory infection) resolved November 06, 2024 9:00am Chronic right hip pain noneactive [facility] 2024 2:40pm Mixed hyperlipidemia noneactive January 17, 2025 2:40pm Essential hypertension noneactive [facility] 2024 2:40pm [facility] Work Phone: 1(248) 112-384612-27-2024 [facility] Medical Records Department [address] [place] [address] History Physical Exam 07/29/24 1308 MR#: [id number] Acct: [id number] Name: BARBIE CAPUTO Rep #: [id number] : 1970 54 From: Delvin JOLLY PA-C PCP: Dr. Joana Yanes MD Status:[facility] Location: [place] [address] History and Physical History and Physical Patient Name: Barbie Caputo : 1970From:??? DELVIN HOOK PA-C DATE OF PRE-OPERATIVE EXAM: 07/29/2024 DATE OF SURGERY:??? 08/08/2024 SCHEDULED PROCEDURE:??? Direct anterior right total hip arthroplasty HISTORY OF PRESENT ILLNESS: Preoperative history and physical exam was performed on July 29, 2024.??? This is a 54-year-old male who has had ongoing pain for a proximally 2 years with his right hip.??? Pain has been sharp.??? He has had right hip intra-articular corticosteroid injection on April 21, 2024.??? That has been helpful.??? Prior to that he had very difficult time walking.??? Patient will get sharp pain with any twisting type motion of the hip.??? Pain is increased with going up and down stairs, driving, sitting, and walking.??? Activities of daily living have been affected including bathing, getting dressed putting on socks and shoes, and housework.??? Patient has tried ice, heat and elevation with no relief.??? He has tried oral medications including Tylenol and tramadol.??? Denies past history of surgery on the right hip.??? Patient has difficulty getting in and out of the truck and car's.??? He has had previous MRI that shows degenerative arthrosis with labral tearing.??? After failing conservative measures and discussing treatment options was Dr. Colin Ewing, the patient does wish to proceed with a direct anterior right total hip arthroplasty.??? Patient has obtain surgical clearance from primary care provider Dr. Yanes.??? Patient has medical history pertinent for hypertension, hyperlipidemia, chronic low back pain, history of DVT left lower leg when he was 38 years old, and dysphagia.??? There is no recent chest pain, shortness of breath, fevers chills or recent infections. REVIEW OF SYSTEMS: Review Of Systems: Constitutional: Reports difficulty sleeping, but denies anorexia, anxiety, change in appetite, fever and weight change. Cardiovasular: Denies chest pain, heart murmur, irregular heartbeat and peripheral vascular disease. Respiratory: Denies asthma, cough, pneumonia, sleep apnea, shortness of breath, tuberculosis and wheezing. Gastrointestinal: Denies constipation, diarrhea, heartburn, nausea, rectal itching and vomiting. Genitourinary: Denies incontinence. Musculoskeletal: Reports pain and weakness, but denies leg swelling and trouble walking. Skin: Denies Raynaud's, history of shingles and tattoo. Neurological: Denies ambulatory dysfunction, dizziness, numbness/tingling and tremor. Psychiatric: Denies anxiety, depression, insomnia, mental illness and stress. Hematologic/Lymphatic: Denies anemia, bleeding/bruising tendency and past transfusion. Reviewed and updated. PAST MEDICAL HISTORY: Advance Care Plan: No Advance Directives Effective Date: 02/13/2020 Past Medical History: Medical Problems: High Blood Pressure History of DVT left leg - (age 38 Years) mixed hyperlipidemia, low back pain, Dysphagia Accidents: Fracture - LT KNEE, RT HAND Other - (2022) LT GROIN STRAIN Surgical Hx: LT Knee - (1982) FRACTURE REPAIR 3 Hernia Repairs Right Total Shoulder Replacement W/ Left Shoulder Injection - (05/09/2022) DR. EWING @ [facility] Caudal Epidural Steroid Injection - (02/16/2024) Dr Saida Hayden @ [facility] Right Hip Injection Under Fluoro - (04/21/2024) DR. EWING AT [facility] Anesthesia Complications: None Assistive Devices: None Reviewed and updated. SOCIAL HISTORY: Social History: Marital: .Occupation: [email or web address].Work Status: Currently Working.Hand Dominance: Right-Handed. Personal Habits:??? Cigarette Use: Never Smoked Cigarettes.Smokeless Tobacco: Former user.E-Cigarette Use: Never used.Alcohol: Weekly use.Drug Use: Denies Use.Enjoy Exercising: Exercises 1-3 x/month. Reviewed and updated. VITALS: Ht: 71 Wt: 258lb Wt k.029 BMI: 36.0 BP: 130/78 Pulse: 85 Resp: 17 T: 97.8 T: 36.6C Pain Level: 0 O2SatR: 98 ALLERGIES: No Known Drug Allergy No Known Substance Allergies MEDICATIONS: Mupirocin 2 % use qtip and apply inside each nostril twice a day until the day of surgery, Vitamin D3 10 mcg (400 Unit) 1po qday, Tylenol Extra Strength 500 mg 2 by mouth every 8 hours, qhs, Vitamin B-6??? 1po qday, Fish Oil-Flax Oil-Borage Oil??? 1po qday, Vitamin C??? 1po qday, Vitamin E??? 1po qday, Losartan Potassium 25 mg one time daily, Multi Vitamin??? one time daily PRE-OP EXAM: General appearance:NORMAL? Other: Eyes: Conjunctivae and lids: NORMAL??? Pupils: ERR Ears, Nose, Mouth, and Throat: NORMAL??? (more content not included)...[facility]12-17-2024 Evaluation note* Diagnosis Onset Date Resolution Status Admit Date Immunization declined noneactive Dec 2023 2:14pm Preoperative clearance noneactive [facility]2023 2:14pm Chronic right hip pain noneactive [facility] 2023 2:14pm Mixed hyperlipidemia noneactive [facility] 2023 2:14pm Essential hypertension noneactive [facility] 2023 2:14pm Right hip pain acute August 8:53am Status post total hip replacement, right acute August 08, 2024 8:53am URI (upper respiratory infection) acute November 06, 2024 9:00am [facility] Work Phone: 1(880) 278-855810-07-2022 Hospital Discharge instructions Patient Education 05/09/2022 16:17:28 General Anesthesia, Adult, Care After General Anesthesia, Adult, Care After This sheet gives you information about how to care for yourself after your procedure. Your health care provider may also give you more specific instructions. If you have problems or questions, contact your health care provider. What can I expect after the procedure? After the procedure, the following side effects are common: Pain or discomfort at the IV site. Nausea. Vomiting. Sore throat. Trouble concentrating. Feeling cold or chills. Weak or tired. Sleepiness and fatigue. Soreness and body aches. These side effects can affect parts of the body that were not involved in surgery. Follow these instructions at home: For at least 24 hours after the procedure: Have a responsible adult stay with you. It is important to have someone help care for you until youare awake and alert. Rest as needed. Do not: ?Participate in activities in which you could fall or become injured. ?Drive. ?Use heavy machinery. ?Drink alcohol. ?Take sleeping pills or medicines that cause drowsiness. ?Make important decisions or sign legal documents. ?Take care of children on your own. Eating and drinking Follow any instructions from your health care provider about eating or drinking restrictions. When you feel hungry, start by eating small amounts of foods that are soft and easy to digest (bland), such as toast. Gradually return to your regular diet. Drink enough fluid to keep your urine pale yellow. If you vomit, rehydrate by drinking water, juice, or clear broth. General instructions If you have sleep apnea, surgery and certain medicines can increase your risk for breathing problems. Follow instructions from your health care provider about wearing your sleep device: ?Anytime you are sleeping, including during daytime naps. ?While taking prescription pain medicines, sleeping medicines, or medicines that make you drowsy. Return to your normal activities as told by your health care provider. Ask your health care provider what activities are safe for you. Take ltic-riu-pawsurl and prescription medicines only as told by your health care provider. If you smoke, do not smoke without supervision. Keep all follow-up visits as told by your health care provider. This is important. Contact a health care provider if: You have nausea or vomiting that does not get better with medicine. You cannot eat or drink without vomiting. You have pain that does not get better with medicine. You are unable to pass urine. You develop a skin rash. You have a fever. You have redness around your IV site that gets worse. Get help right away if: You have difficulty breathing. You have chest pain. You have blood in your urine or stool, or you vomit blood. Summary After the procedure, it is common to have a sore throat or nausea. It is also common to feel tired. Have a responsible adult stay with you for the first 24 hours after general anesthesia. It is important to have someone help care for you until you are awake and alert. When you feel hungry, start by eating small amounts of foods that are soft and easy to digest (bland), such as toast. Gradually return to your regular diet. Drink enough fluid to keep your urine pale yellow. Return to your normal activities as told by your health care provider. Ask your health care provider what activities are safe for you. This information is not intended to replace advice given to you by your health care provider. Make sure you discuss any questions you have with your health care provider. Document Released: 10/26/2001 Document Revised: 07/23/2018 Document Reviewed: 03/05/2018 [employer] Patient Education 2020 [employer]. 05/09/2022 16:15:32 General Anesthesia, Adult, Care After General Anesthesia, Adult, Care After This sheet gives you information about how to care for yourself after your procedure. Your health care provider may also give you more specific instructions. If you have problems or questions, contact your health care provider. What can I expect after the procedure? After the procedure, the following side effects are common: Pain or discomfort at the IV site. Nausea. Vomiting. Sore throat. Trouble concentrating. Feeling cold or chills. Weak or tired. Sleepiness and fatigue. Soreness and body aches. These side effects can affect parts of the body that were not involved in surgery. Follow these instructions at home: For at least 24 hours after the procedure: Have a responsible adult stay with you. It is important to have someone help care for you until youare awake and alert. Rest as needed. Do not: ?Participate in activities in which you could fall or become injured. ?Drive. ?Use heavy machinery. ?Drink alcohol. ?Take sleeping pills or medicines that cause drowsiness. ?Make important decisions or sign legal documents. ?Take care of children on your own. Eating and drinking Follow any instructions from your health care provider about eating or drinking restrictions. When you feel hungry, start by eating small amounts of foods that are soft and easy to digest (bland), such as toast. Gradually return to your regular diet. Drink enough fluid to keep your urine pale yellow. If you vomit, rehydrate by drinking water, juice, or clear broth. General instructions If you have sleep apnea, surgery and certain medicines can increase your risk for breathing problems. Follow instructions from your health care provider about wearing your sleep device: ?Anytime you are sleeping, including during daytime naps. ?While taking prescription pain medicines, sleeping medicines, or medicines that make you drowsy. Return to your normal activities as told by your health care provider. Ask your health care provider what activities are safe for you. Take orkw-dvo-wwxxyif and prescription medicines only as told by your health care provider. If you smoke, do not smoke without supervision. Keep all follow-up visits as told by your health care provider. This is important. Contact a health care provider if: You have nausea or vomiting that does not get better with medicine. You cannot eat or drink without vomiting. You have pain that does not get better with medicine. You are unable to pass urine. You develop a skin rash. You have a fever. You have redness around your IV site that gets worse. Get help right away if: You have difficulty breathing. You have chest pain. You have blood in your urine or stool, or you vomit blood. Summary After the procedure, it is common to have a sore throat or nausea. It is also common to feel tired. Have a responsible adult stay with you for the first 24 hours after general anesthesia. It is important to have someone help care for you until you are awake and alert. When you feel hungry, start by eating small amounts of foods that are soft and easy to digest (bland), such as toast. Gradually return to your regular diet. Drink enough fluid to keep your urine pale yellow. Return to your normal activities as told by your health care provider. Ask your health care provider what activities are safe for you. This information is not intended to replace advice given to you by your health care provider. Make sure you discuss any questions you have with your health care provider. Document Released: 10/26/2001 Document Revised: 07/23/2018 Document Reviewed: 03/05/2018 [employer] Patient Education 2020 [employer] Follow Up Care 04/23/2022 13:15:18 With:COLIN EWING MD Address: [address] [place] [address] [place] [address] [phone] When: Unknown Comments:Follow up in [place] office 05/21 at 9:30a with Angelia LOZANO [facility] 10-07-2022 Summary of episode note Discharge Instructions Thank you for allowing [facility] to assist you with your healthcare needs. The following is importantdischarge information regarding your hospital visit. What to do next Follow Up Appointments Follow Up with COLIN EWING MD When Why: Follow up in [place] office 05/21 at 9:30a with Ray and then PT. [facility] [id number] [facility] [address] [place] [phone] The Following Activity and Diet Have Been Ordered for You No qualifying data available. No qualifying data available. The Following Equipment Has Been Ordered for You No qualifying data available. The Following Treatments Have Been Ordered for You Discharge Labs No qualifying data available. Discharge Radiology No qualifying data available. Other Therapies No qualifying data available. Post Acute Orders No qualifying data available. Someone Will Contact You Regarding These Home Health Referrals No home referrals have been ordered for you. No one will call you. Allergies No Known Medication Allergies Medications Please ask your primary doctor or pharmacist before taking any other medication not listed, including over the counter drugs, herbal medications, vitamins and or supplements as they may interact withyour home medications. What How Much When Instructions Last Dose Unchanged cholecalciferol (Vitamin D3) 100 Microgram by mouth Every day Unchanged ibuprofen (ibuprofen 600 mg oral tablet) 1 tab(s) by mouth Every 6 hours as needed for for pain Take with food or milk. Please take this list to your next doctor s visit. Bring all medications you take, including over the counter medications, herbals and other supplements with you to your doctor s visit. Patients and families are reminded to discard old lists and to update any records with all medication providers or retail pharmacies. Education Materials General Anesthesia, Adult, Care After This sheet gives you information about how to care for yourself after your procedure. Your health care provider may also give you more specific instructions. If you have problems or questions, contact your health care provider. What can I expect after the procedure? After the procedure, the following side effects are common: Pain or discomfort at the IV site. Nausea. Vomiting. Sore throat. Trouble concentrating. Feeling cold or chills. Weak or tired. Sleepiness and fatigue. Soreness and body aches. These side effects can affect parts of the body that were not involved in surgery. Follow these instructions at home: For at least 24 hours after the procedure: Have a responsible adult stay with you. It is important to have someone help care for you until youare awake and alert. Rest as needed. Do not: ? Participate in activities in which you could fall or become injured. ? Drive. ? Use heavy machinery. ? Drink alcohol. ? Take sleeping pills or medicines that cause drowsiness. ? Make important decisions or sign legal documents. ? Take care of children on your own. Eating and drinking Follow any instructions from your health care provider about eating or drinking restrictions. When you feel hungry, start by eating small amounts of foods that are soft and easy to digest (bland), such as toast. Gradually return to your regular diet. Drink enough fluid to keep your urine pale yellow. If you vomit, rehydrate by drinking water, juice, or clear broth. General instructions If you have sleep apnea, surgery and certain medicines can increase your risk for breathing problems. Follow instructions from your health care provider about wearing your sleep device: ? Anytime you are sleeping, including during daytime naps. ? While taking prescription pain medicines, sleeping medicines, or medicines that make you drowsy. Return to your normal activities as told by your health care provider. Ask your health care provider what activities are safe for you. Take tntk-asj-wtijqfo and prescription medicines only as told by your health care provider. If you smoke, do not smoke without supervision. Keep all follow-up visits as told by your health care provider. This is important. Contact a health care provider if: You have nausea or vomiting that does not get better with medicine. You cannot eat or drink without vomiting. You have pain that does not get better with medicine. You are unable to pass urine. You develop a skin rash. You have a fever. You have redness around your IV site that gets worse. Get help right away if: You have difficulty breathing. You have chest pain. You have blood in your urine or stool, or you vomit blood. Summary After the procedure, it is common to have a sore throat or nausea. It is also common to feel tired. Have a responsible adult stay with you for the first 24 hours after general anesthesia. It is important to have someone help care for you until you are awake and alert. When you feel hungry, start by eating small amounts of foods that are soft and easy to digest (bland), such as toast. Gradually return to your regular diet. Drink enough fluid to keep your urine pale yellow. Return to your normal activities as told by your health care provider. Ask your health care provider what activities are safe for you. This information is not intended to replace advice given to you by your health care provider. Make sure you discuss any questions you have with your health care provider. Document Released: 10/26/2001 Document Revised: 07/23/2018 Document Reviewed: 03/05/2018 [employer] Patient Education 2020 [employer]. General Anesthesia, Adult, Care After This sheet gives you information about how to care for yourself after your procedure. Your health care provider may also give you more specific instructions. If you have problems or questions, contact your health care provider. What can I expect after the procedure? After the procedure, the following side effects are common: Pain or discomfort at the IV site. Nausea. Vomiting. Sore throat. Trouble concentrating. Feeling cold or chills. Weak or tired. Sleepiness and fatigue. Soreness and body aches. These side effects can affect parts of the body that were not involved in surgery. Follow these instructions at home: For at least 24 hours after the procedure: Have a responsible adult stay with you. It is important to have someone help care for you until youare awake and alert. Rest as needed. Do not: ? Participate in activities in which you could fall or become injured. ? Drive. ? Use heavy machinery. ? Drink alcohol. ? Take sleeping pills or medicines that cause drowsiness. ? Make important decisions or sign legal documents. ? Take care of children on your own. Eating and drinking Follow any instructions from your health care provider about eating or drinking restrictions. When you feel hungry, start by eating small amounts of foods that are soft and easy to digest (bland), such as toast. Gradually return to your regular diet. Drink enough fluid to keep your urine pale yellow. If you vomit, rehydrate by drinking water, juice, or clear broth. General instructions If you have sleep apnea, surgery and certain medicines can increase your risk for breathing problems. Follow instructions from your health care provider about wearing your sleep device: ? Anytime you are sleeping, including during daytime naps. ? While taking prescription pain medicines, sleeping medicines, or medicines that make you drowsy. Return to your normal activities as told by your health care provider. Ask your health care provider what activities are safe for you. Take xlqb-htb-ugrlkoh and prescription medicines only as told by your health care provider. If you smoke, do not smoke without supervision. Keep all follow-up visits as told by your health care provider. This is important. Contact a health care provider if: You have nausea or vomiting that does not get better with medicine. You cannot eat or drink without vomiting. You have pain that does not get better with medicine. You are unable to pass urine. You develop a skin rash. You have a fever. You have redness around your IV site that gets worse. Get help right away if: You have difficulty breathing. You have chest pain. You have blood in your urine or stool, or you vomit blood. Summary After the procedure, it is common to have a sore throat or nausea. It is also common to feel tired. Have a responsible adult stay with you for the first 24 hours after general anesthesia. It is important to have someone help care for you until you are awake and alert. When you feel hungry, start by eating small amounts of foods that are soft and easy to digest (bland), such as toast. Gradually return to your regular diet. Drink enough fluid to keep your urine pale yellow. Return to your normal activities as told by your health care provider. Ask your health care provider what activities are safe for you. This information is not intended to replace advice given to you by your health care provider. Make sure you discuss any questions you have with your health care provider. Document Released: 10/26/2001 Document Revised: 07/23/2018 Document Reviewed: 03/05/2018 [employer] Patient Education 2020 [employer] Additional Information VACCINATE! IT SAVES LIVES! Members of the community who have not yet received the COVID-19 vaccine and would like to receive it can visit one of [facility] vaccine clinics. There are many vaccine clinic locations within the [facility]. For locations and available times, please visit [email or web address] It is important to note that some COVID mobile vaccine clinics are held outdoors and may be canceled in rainy or stormy conditions. To learn more about pediatric vaccinations (ages 5-11), we invite you to visit the [facility] webpage. [email or web address] [email or web address] learn more about the COVID-19 vaccine, we invite you to visit the [place] website for a list of frequently asked questions. [email or web address] [facility] Patient Portal Access Instructions: Stay connected with your healthcare team and access your personal medical information anytime with the [facility] Patient Portal.If you would like a full copy of your medical records, please contact the [facility] Medical Records Department, Thursday through Thursday between 8a.m. and 4:30p.m. Please follow the directions below to access the portal: 1.Access the email account you provided upon registration to the [facility].2.Look for an invitation email from [facility].3.Open the email and access the invitation link: Accept Invitation to [facility]4.Fill in the required ramos to create your account. Sign into [email or web address] with your username and password that you created in the above steps to stay up to date. You can then view a summary of results, a summary of your visits, and the ability to download your summaries to your computer or send the information securely to a physician. Remember that your healthcare information is confidential, so carefully consider who you will allow to register on the [facility] Patient Portal for access to your information. You can also access the [facility] Patient Portal on the [employer] rishabh. Simply click on Health Records under [employer] and then click on the [facility] logo. HOW TO SAFELY DISPOSE OF PRESCRIPTION MEDICATIONS Please use one of the following methods to safely dispose of your unused medications. 1.Use a drug disposal kit: the drug disposal pouch allows you to safely discard your old and unuseddrugs. Ask your nurse to give you one when you are discharged.2.Visit a local take-back location: Many local pharmacies and police departments have programs that collect old and unwanted prescriptiondrugs. Call your local pharmacy or go to http://bit.7Summits/2J7Yq9e to find one close to you.3.Make use of household items: Use cat litter or old coffee grounds to dispose medications if other options arenot available. Mix your drugs with these household products, seal them in an airtight container andthrow it into the garbage. Call [facility]: [phone] to be sure your drugs can be disposed of in this way. Some medicines may require a different approach.4.Never flush your medications down the toilet. IF YOU HAVE BEEN PRESCRIBED AN OPIOID FOR PAIN If you have been prescribed an opioid (such as hydrocodone, oxycodone or morphine), it is critical to understand the possible side effects and risks of opioid pain medications. Even when taken as directed, opioids can have several side effects including: Tolerance, meaning you might need to take more of a medication for the same pain relief. Nausea, vomiting and/or constipation. Sleepiness, dizziness, dry mouth, confusion, depression or itching. Physical dependence, meaning you have withdrawal symptoms when a medication is stopped, can develop within a few days. KNOW YOUR RESPONSIBILITIES It is important to know exactly how much and how often to take the opioid pain medications you are prescribed. Never take opioids in higher amounts or more often than prescribed. Do not combine opioids with alcohol or other drugs that cause drowsiness, such as benzodiazepines, also known as benzos, including diazepam and alprazolam, muscle relaxants or sleep aids. Never sell or share prescription opioids. This is illegal. Store opioids in a secure place and out of reach of others (including children, family, friends and visitors). The last page of this document has been signed and retained as a CHART COPY. Signatures Patient Education Materials General Anesthesia, Adult, Care After General Anesthesia, Adult, Care After Medication Leaflets My discharge plan and instructions have been reviewed and explained to me and HARSHAL Blanco CHAD J understand my current condition and have read and understand these discharge instructions. I have received a written copy of the plan/instructions. If I have questions, I am aware that I should contact my janett slaughter. 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 HISTORY: ORDERING SYSTEM PROVIDED HISTORY: Reason for Exam: Status Post Arthroplasty FINDINGS: Postsurgical changes status post right partial shoulder arthroplasty are noted. The exam is somewhat limited secondary to patient positioning. Within this limitation no acute fracture, dislocation, or hardware failure is noted. No unexpected radiopaque foreign body is identified. IMPRESSION: Limited exam with expected postsurgical changes status post partial shoulder arthroplasty. Interpreted by: Ed Mir MD Preliminary Report By: Ed Mir MD Electronically signed By Ed Mir MD Dictated Date: 05/09/2022 3:52:45 PM Prelim Date: 05/09/2022 3:54:52 PM Sign Date: 05/09/2022 3:54:52 PM Ordering Provider: [facility]10-07-2022 Note ORIGINAL EXAMINATION: TWO XRAY VIEWS OF THE RIGHT SHOULDER 05/09/2022 3:25 pm COMPARISON: None at our institution. HISTORY: ORDERING SYSTEM PROVIDED HISTORY: Reason for Exam: Status Post Arthroplasty FINDINGS: Postsurgical changes status post right partial shoulder arthroplasty are noted. The exam is somewhat limited secondary to patient positioning. Within this limitation no acute fracture, dislocation, or hardware failure is noted. No unexpected radiopaque foreign body is identified. IMPRESSION: Limited exam with expected postsurgical changes status post partial shoulder arthroplasty. Interpreted by: Ed Mir MD Preliminary Report By: Ed Mir MD Electronically signed By Ed Mir MD Dictated Date: 05/09/2022 3:52:45 PM Prelim Date: 05/09/2022 3:54:52 PM Sign Date: 05/09/2022 3:54:52 PM Ordering Provider: [facility]10-07-2022 Anesthesiology Consult note Patient: BARBIE CAPUTO Age: 52 years Sex: Male : 1970 Associated Diagnoses: None Author: MICHAEL BALLESTEROS Assessment Postanesthesia assessment Vitals: Reviewed Results: Vital signs from flowsheet : Vital Signs(Date Range: 05/08/2022 0:00 EDT -05/09/2022 15:17 EDT) . Mental status: at preoperative baseline. Respiratory function: lungs are clear to auscultation. Respiratory support: none. CV function: Normal rate. Cardiovascular support: none. Pain. Nausea status: denies nausea. Postoperative hydration status: within normal limits. Digitally Signed by MICHAEL BALLESTEROS on 05/09/2022 03:18 PM [facility]10-07-2022 Anesthesiology Consult note Patient: BARBIE CAPUTO Age: 52 years Sex: Male : 1970 Associated Diagnoses: None Author: MICHAEL BALLESTEROS Preoperative Information Time of last food or liquid consumption: 05/09/2022 00:00:00 Anesthesia history Patient's history: negative. Family's history: negative. Health Status Allergies: Allergic Reactions (Selected) No Known Medication Allergies, Allergies (1) ActiveReaction No Known Medication AllergiesNone Documented Current medications: (Selected) Inpatient Medications Ordered Betadine 10% topical solution: 17.5 mL, mL/hr, Topical (INT), PREOP pharm CeleBREX: 400 mg, 2 cap(s), Oral, PREOP pharm Decadron: 10 mg, 1 mL, IV Push, AsDirected Kefzol: 2 gram(s), 200 mL/hr, IV Piggyback, PREOP pharm LR 1,000 mL: 20 mL/hr, Intravenous, Stop: 05/09/22 23:59:00 EDT Naropin 25 mg + Toradol 15 mg + EPINEPHrine 1 mg/mL injectable solution 0.3 mg + morphine 2.5 mg...: 25 mg, 5 mL, mL/hr, Other, PREOP pharm Naropin 25 mg + Toradol 15 mg + EPINEPHrine 1 mg/mL injectable solution 0.3 mg + morphine 2.5 mg...: 25 mg, 5 mL, mL/hr, Other, PREOP pharm OxyCONTIN: 10 mg, 1 tab(s), Oral, PREOP pharm Pepcid IV: 20 mg, 2 mL, IV Push, PREOP pharm tranexamic acid 1 g / 100 mL 0.7% NaCl PMX: 1 gram(s), 100 mL, 300 mL/hr, IV Piggyback, AsDirected tranexamic acid 1 g / 100 mL 0.7% NaCl PMX: 1 gram(s), 100 mL, 300 mL/hr, IV Piggyback, AsDirected Documented Medications Documented Vitamin D3: 100 mcg, 1 tab(s), Oral, Daily, 0 Refill(s) ibuprofen 600 mg oral tablet: 600 mg, 1 tab(s), Oral, q6h, Take with food or milk., PRN: for pain, 40 tab(s), 0 Refill(s), Medications (11) Active Scheduled: (10) ceFAZolin 2 gram(s), IV Piggyback, PREOP pharm celecoxib 200 mg capsule 400 mg 2 cap(s), Oral, PREOP pharm dexamethasone 10 mg/mL (1mL) SDV 10 mg 1 mL, IV Push, AsDirected famotidine 20 mg/2 mL vial 20 mg 2 mL, IV Push, PREOP pharm oxyCODONE 10 mg ER tablet 10 mg 1 tab(s), Oral, PREOP pharm povidone iodine topical 17.5 mL, Topical (INT), PREOP pharm ropivacaine 25 mg + ketorolac 15 mg + epinephrine 0.3 mg + morphine 2.5 mg 25 mg 5 mL, Other, PREOPpharm ropivacaine 25 mg + ketorolac 15 mg + epinephrine 0.3 mg + morphine 2.5 mg 25 mg 5 mL, Other, PREOPpharm tranexamic acid PMX 1 gram(s) 100 mL, IV Piggyback, AsDirected tranexamic acid PMX 1 gram(s) 100 mL, IV Piggyback, AsDirected Continuous: (1) Lactated Ringers 1,000 mL 1,000 mL, Intravenous, 20 mL/hr PRN: (0) Problem list: Active Problems (3) DVT (deep venous thrombosis) GERD (gastroesophageal reflux disease) Osteoarthritis Histories Past Medical History: No active or resolved past medical history items have been selected or recorded., HTN, DVT, hx covid, GERD, BMI 32.1 Family History: Entire family history is negative. Procedure history: Inguinal hernia ([id number]). Comments: 04/29/2022 13:31 Lina Cates RN X3 Knee ([id number]). Comments: 04/29/2022 13:31 Lina Cates RN RIGHT KNEE SURGERY (CHILD) Vasectomy ([id number]). Social History Social & Psychosocial Habits Alcohol 04/29/2022 Use: Current Type: Beer Frequency: 3-5 times per week Substance Abuse 04/29/2022 Use: Never Tobacco 04/29/2022 Tobacco Use: QUIT SNUFF 1 MONTH AGO Type: Oral (Snuff, Chew) Home/Environment 04/29/2022 Domestic Concerns None Living situation: Home/Independent . Physical Examination Vital Signs 05/09/2022 9:57 EDT Temperature Temporal Artery 37.0 DegC Peripheral Pulse Rate 73 bpm Respiratory Rate 17 br/min Systolic Blood Pressure NBP 145 mmHg HI Diastolic Blood Pressure NBP 86 mmHg Vital Signs(last 24 hrs) Last Charted Resp Rate 17 br/min (MAY 09 09:57) SBPH 145mmHg (MAY 09 09:57) DBP86 mmHg (MAY 09 09:57) Measurements from flowsheet : Measurements 05/09/2022 9:57 EDT Height 180 cm Admission Weight 106 kg [place] Body Weight 74.99 kg Body Mass Index In Error kg/m2 (In Error) Admission Body Mass Index 32.72 m2 Pain assessment: Pain Assessment 05/09/2022 9:57 EDT Primary Pain Location Shoulder Primary Pain Laterality Bilateral Primary Pain Intensity 9 Primary Pain Aggravating Factors Movement Pain Scale Type 0-10 Pain scale . General: Alert and oriented. Airway: Normal temporomandibular joint mobility. Mallampati classification: II (soft palate, fauces, uvula visible). Head: Normocephalic. Dentition Evaluation: Intact. Neck: Supple. Respiratory: Lungs are clear to auscultation. Cardiovascular: Normal rate. Heart Sounds: Normal. Gastrointestinal: Soft. Musculoskeletal Normal range of motion. Integumentary: Intact. Neurologic: Alert. Review / Management Results review: No qualifying data available , Lab results 05/09/2022 10:21 EDT citric acid-sodium citrate Not Done: Not Appropriate at this Time (Not Done) Lactated Ringers Injection 1,000 mL mL 05/09/2022 10:20 EDT Wrist Left 05/09/2022 20 gauge Peripheral IV Activity: Insert new site Peripheral IV Dressing Condition: Clean, Dry, Intact Peripheral IV Dressing Activity: Applied, Transparent dressing Peripheral IV Line Status/Patency: Continuous infusion Peripheral IV Line Care: Secured with tape Peripheral IV Site Condition: No complications Peripheral IV Equipment: Extension set, PRN Adaptor Peripheral IV Number of Attempts: 1 05/09/2022 9:57 EDT Height 180 cm Admission Weight 106 kg [place] Body Weight 74.99 kg Body Mass Index In Error kg/m2 (In Error) Admission Body Mass Index 32.72 m2 Temperature Temporal Artery 37.0 DegC Peripheral Pulse Rate 73 bpm Respiratory Rate 17 br/min Systolic Blood Pressure NBP 145 mmHg HI Diastolic Blood Pressure NBP 86 mmHg Primary Pain Location Shoulder Primary Pain Laterality Bilateral Primary Pain Intensity 9 Primary Pain Aggravating Factors Movement Pain Scale Type 0-10 Pain scale Nail Bed Color [place] Capillary Refill < 2 seconds Heart Rhythm Regular Dorsalis Pedis Pulse, Left 2+ Normal Dorsalis Pedis Pulse, Right 2+ Normal Radial Pulse, Left 2+ Normal Radial Pulse, Right 2+ Normal Edema Generalized None All Lobes Breath Sounds Clear Oxygen Therapy Room air Oxygen Saturation 97 % Abdomen Description Non-distended, Soft Abdomen Palpation Non-Tender Bowel Sounds All Quadrants Present Urinary Elimination Voiding, no difficulties Skin Temperature Warm Skin Description [place], Dry Skin Integrity Intact Neurological Symptoms Patient denies Extremity Movement Equal Characteristics of Speech Clear Level of Consciousness Alert Strength All Extremities Strong Tone All Extremities Normal Sensation All Extremities Intact Affect/Behavior Appropriate, Calm, Cooperative Orientation Oriented x 4 Infectious Disease Symptoms Patient states no symptoms Allergies No Consent Form Signed Yes Patient Dressed In Hospital gown CHG Preoperative Wash/Wipe Night before procedure, Day of procedure CHG Skin Prep Completed for Eligible Surgery History & Physical On Chart Yes Orientation Assessment Oriented x 4 Safety Brochure Information Reviewed Yes Yevgeniy Leonard Video Viewed No Teaching Evaluation Verbalizes/Nonverbally indicates understanding Activity Status ADL Awake, Resting NPO Status Maintained, More than 8 hours Standard Safety ID band on, Call device within reach, Bed in low position, Wheels locked, Upper/Half-Length side-rails up Patient ID Band on and Verified Yes Last Fluid Intake 05/08/2022 19:00 Last Food Intake 05/08/2022 19:00 Last Void 05/09/2022 9:30 Admission Note-Nursing Same Day Patient History (Modified) . Assessment and Plan [place] [employer] (ASA) physical status classification: Class III. Anesthetic Preoperative Plan Premedication: intravenous. Anesthetic technique: General. Induction: intravenously. Maintenance airway: Oral endotracheal tube. Regional: Interscalene Block. Postoperative pain management: Per surgeon. Risks discussed: nausea, vomiting, headache, sore throat, dental injury, hypotension, allergic reaction, serious complications. Informed consent: signed by patient. Digitally Signed by MICHAEL BALLESTEROS on 05/09/2022 10:29 AM [facility]11-21-2021 NoteHNO ID: [id number] Author: Glenda Shah APRN.CNP Service: ? Author Type: Nurse Practitioner Type: Progress Notes Filed: 06/23/2021 9:28 AM Note Text: CC: Patient presents with: Nasal Congestion: CONNOLLY x3 weeks HPI: Barbie Caputo is a 51 year old male who presents to the office with complaint of sinus symptoms for 3 weeks. Diagnosed with COVID 05/26, all symptoms resolved except for headache Symptoms are staying the same Associated symptoms includes sore throat, facial pain/pressure, post nasal drip and headache. Denies fever, ear pain, cough, wheezing and dyspnea. Treatments tried include Ibuprofen with minor relief of symptoms. Smoker: No Seasonal/environmental allergies: No The ROS is otherwise negative. The patient's pmh, medications, allergies, and past visits are reviewed. PHYSICAL EXAM: BP 130/90 Pulse 83 Temp 37.1 ?C (98.7 ?F) Resp 16 Wt 111.5 kg (245 lb 12.8 oz) SpO2 97% BMI 34.28 kg/m? General appearance: tired/ill appearing, alert, cooperative, pleasant, in no acute distress Head: Normocephalic Eyes: conjunctiva pink and moist, no icterus, sclera white, non-injected Ears: Right ear: External ear/canal- Normal, TM - clear with good landmarks. Left ear: External ear/canal- Normal, TM - clear with good landmarks Nose: mucosa erythematous and swollen, no sinus tenderness. Oropharynx:No erythema, exudates or tonsillar hypertrophy. Neck:supple and no adenopathy Heart: Negative. RRR without obvious murmur, gallop, or rubs. No ectopy. Lungs: clear to auscultation, without rales or wheeze, good air exchange ASSESSMENT/PLAN: 1. Acute non-recurrent sinusitis, unspecified location - ICD9: 461.9, ICD10: J01.90 - Will begin treatment with Augmentin 875 mg PO BID for 7 days - Supportive care with plenty of fluids, rest, and analgesia prn. - Follow up in 3-5 days if symptoms persist or worsen. Prescription instructions reviewed with patient as applicable. Potential red flag symptoms discussed with the patient. Reviewed appropriate action plan to take if red flag symptoms occur. Patient agreeable to treatment plan. Glenda Shah APRN.[facility] NoteHNO ID: [id number] Author: Remberto Calderon APRN.DOMINGA Service: ? Author Type: Nurse Practitioner Type: Progress Notes Filed: 05/26/2021 10:13 AM Note Text: Subjective HPI HPI Barbie Caputo is a 51 year old male who presents today for CC of congestion, loss taste/smell. This started over 1 week ago. Has tried otc medication for relief. Symptoms are worsened by nothing. Risk factors family currently with covid. .Patient presents with: Exposure: and kids x over a week, patient has no taste or smell PAST MEDICAL HISTORY Diagnosis Date - Bilateral inguinal hernia - Sterilization - Superficial thrombophlebitis 1982 after knee injury. - Umbilical hernia without mention of obstruction or gangrene PAST SURGICAL HISTORY Procedure Laterality Date - LAP REPAIR INTIAL INGUINAL HERNIA 08/26/12 - PAST SURGICAL HISTORY OF 1982 L knee injury - REPAIR UMBILICAL ELOISE,5+Y/O,REDUC 08/26/12 - VASECTOMY 08/26/12 ALLERGIES Patient has no known allergies. MEDICATIONS Uegnpjceped-Tkhhgkymz-Qub C-Mn (GLUCOSAMINE CHONDROITIN MAXSTR) 500-400 mg cap Take 1 capsule by mouth three times daily. naproxen (NAPROSYN) 500 mg tablet Take 1 tablet by mouth twice daily as needed (for pain/inflammation). Take with food. No family history on file. Social History Tobacco Use - Smoking status: Never Smoker - Smokeless tobacco: Former User - Tobacco comment: smokeless tobacco since age 17. continues to chew. Substance Use Topics - Alcohol use: Yes Alcohol/week: 60.0 standard drinks Types: 24 Cans of Beer (12oz) per week Comment: upswing in 2010 or so. - Drug use: No ROS Objective Blood pressure 128/76, pulse 76, temperature 36.9 ?C (98.4 ?F), resp. rate 16, weight 112 kg (247 lb), SpO2 96 %. Physical Exam Constitutional: General: He is not in acute distress. Appearance: He is not toxic-appearing or diaphoretic. HENT: Head: Normocephalic and atraumatic. Nose: Congestion present. Cardiovascular: Rate and Rhythm: Normal rate and regular rhythm. Heart sounds: Normal heart sounds, S1 normal and S2 normal. Pulmonary: Effort: Pulmonary effort is normal. Breath sounds: Normal breath sounds. Lymphadenopathy: Cervical: No cervical adenopathy. Right cervical: No superficial cervical adenopathy. Left cervical: No superficial cervical adenopathy. Neurological: Mental Status: He is alert and oriented to person, place, and time. Gait: Gait is intact. ASSESSMENT/PLAN: 1. Suspected COVID-19 virus infection - ICD9: V01.79, ICD10: Z20.822 (primary diagnosis) Discussed quarantine, social distancing otc medications discussed Push fluids -If you experience chest pain/shortness of breath go to ER - 2019 CORONAVIRUS 2. Close exposure to COVID-19 virus - ICD9: V01.79, ICD10: Z20.822 - 2019 CORONAVIRUS Agrees to plan Remberto Calderon APRN.[facility] complaint+Reason for visit Narrative* Chief Complaint COUGH FOR 3 WEEKS EORDER Reason for Visit Immunization decline d Bilateral groin pain Chest congestion Dysphagia Mixed hyperlipidemia Essential hypertension [facility] Work Phone: Evaluation + Plan note Future Appointments [facility] Evaluation note* Diagnosis Onset Date Resolution Status Bilateral shoulder pain acut e Screening for cardiovascular condition noneactive Establishing care with new doctor, encounter for noneactive Annual physical exam noneact kira Mixed hyperlipidemia noneact kira [facility] Work Phone: Evaluation noteNo assessment information available [facility] Work Phone: Evaluation note* Diagnosis Onset Date Resolution Status Recurrent deep vein thrombos is (DVT) of left lower extremity noneactive Left groin pain noneactive [facility] Work Phone: Evaluation note* Diagnosis Onset Date Resolution Status Immunization declined noneac tive Bilateral groin pain noneact kira Chest congestion noneactive Dysphagia noneactive Mixed hyperlipidemia noneact kira Essential hypertension nonea ctive [facility] Work Phone: Hospital course Narrative No data available for this section [facility] Hospital Discharge instructions No data available for this section [facility] Hospital Discharge instructions Additional Instructions Your x-ray did not show pneumonia and your COVID influenza and RSV test was negative. Your symptoms and testing indicate that you have an upper respiratory tract infection which will last on average 18 to 21 days. Take the inhaler as directed to help with symptoms and continue ogla-dqw-srlvyny medications. Return to the ER should you have any further concernsW[facility] Work Phone: Progress note No data available for this section [facility] Reason for referral (narrative)No reason for referral information availableB[facility] Work Phone: Summary Purpose Family History No Family History Records Found Relationship Condition Age at Onset Recorded Date/T fausto mother Malignant neoplasm Unknown grandfather Malignant neoplasm Unknown Advance Directives No Advanced Directives Records Found Advance Directive Response Recorded Date/ Time Living Will No January 02, 2016 1 0:34pm Power of Manager Of Community Relations No January 02, 2016 10:34pm Advance Directive Response Recorded Date/ Time Living Will No January 02, 2016 9 :34pm Power of Manager Of Community Relations No January 02, 2016 9:34pm Advance Directive Response Recorded Date/ Time Living Will No February 10, 2023 10:07am Power of Manager Of Community Relations No February 10 10:07am Advance Directive Response Recorded Date/ Time Living Will No Mojgan 1st, 2 024 4:30pm Do you have a Healthcare Power of Manager Of Community Relations? No April 03, 2024 4:30pm Living Will No November 09, 2024 11:50pm Do you have a Healthcare Power of Manager Of Community Relations? No November 09, 2024 11:50pm Living Will No August 08 4:27pm Do you have a Healthcare Power of Manager Of Community Relations? No August 08, 2024 4:27pm Advance Directive Response Recorded Date/ Time Living Will No November 09, 2024 11:50pm Do you have a Healthcare Power of Manager Of Community Relations? 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, PT NE EDS NPP PAIN IN RIGHT SHOULDER E ORDERS Reason for Visit Bilateral shoulder p ain Screening for cardiovascular condition Establishing care with new doctor, encounter for Annual physical exam Mixed hyperlipidemia Chief Complaint PAIN IN RIGHT SHOULD ER E ORDERS PAIN IN LOWER LEG Chief Complaint PAIN IN LOWER LEG PAIN IN LFT UPPER GROIN LEFT LEGAcute embolism and thrombosis of unspecifi Reason for Visit Recurrent deep vein thrombosis (DVT) of left lower extremity Left groin pain Chief Complaint PAIN IN LOWER LEG PAIN IN LFT UPPER GROIN LEFT LEGAcute embolism and thrombosis of unspecifi EORDER- groin pain Reason for Visit Recurrent deep vein thrombosis (DVT) of left lower extremity Left groin pain Chief Complaint Admit Date SURGICAL CLEARANCE July 19, 2024 2:14pm ANTERIOR RIGHT TOTAL HIP ARTHROPLASTY, E PRIYA August 08, 2024 8:53am ANTERIOR RIGHT TOTAL HIP ARTHROPLASTY, E PRIYA August 08, 2024 3:09pm ANTERIOR RIGHT TOTAL HIP ARTHROPLASTY, E PRIYA August 09, 2024 2:48pm CHEST CONGESTION November 06, 2024 9:00 am SOB November 09, 2024 11:5 0pm Reason for Visit Admit Date Immunization declined July 19 2:14pm Preoperative clearance July 19 2:14pm Chronic right hip pain July 19 2:14pm Mixed hyperlipidemia July 19, 2024 2:14pm Essential hypertension July 19 2:14pm Right hip pain August 08, 2024 8: 53am Status post total hip replacement, right August 08, 2024 8:53am URI (upper respiratory infection) November 06, 2024 9:00am Chief Complaint Admit Date CHEST CONGESTION November 06, 2024 9:00 am SOB November 09, 2024 11:5 0pm ORTHOTICS. RX HERE December 29, 2024 5:30p m Reason for Visit Admit Date URI (upper respiratory infection) November 06, 2024 9:00am Chief Complaint Admit Date CHEST CONGESTION November 06, 2024 9:00 am SOB November 09, 2024 11:5 0pm ORTHOTICS. RX HERE December 29, 2024 5:30p m 6 M FU January 17, 2025 2:40 pm Reason for Visit Admit Date URI (upper respiratory infection) November 06, 2024 9:00am Chronic right hip pain January 17, 2025 2 :40pm Mixed hyperlipidemia January 17, 2025 2:4 0pm Essential hypertension January 17, 2025 2 :40pm Additional Source Comments (unrecognized sect ion and content) No Status Records FoundNo Status Records FoundNo Status Records Found INFORMATION SOURCE (unrecogn ized section and content) DATE CREATED AUTHOR 03/04/2022 [facility] DATE CREATED AUTHOR AUTHOR'S ORGANIZ ATION 05/28/2022 [facility] ([place]) DATE CREATED AUTHOR AUTHOR'S ORGANIZ ATION 01/19/2025 [facility] Goals (unrecognized section and content) Goals may be documented in a n alternate section No data available for this section No data available for this sectionGoals may be documented in an alternate sectionGoals may be documented in an alternate sectionGoals may be documented in an alternate sectionGoals may be documented in an alternate sectionGoals may be documented in an alternate sectionGoals may be documented in an alternate sectionGoals may be documented in an alternate section Care Team (unrecognized sect ion and content) Care Team Related Persons Name: ALEXANDRIA CAPUTO Address: [address] [place] [id number] Care Team Related Persons Name: ALEXANDRIA CAPUTO Address: [address] [place] [id number] Care Teams (unrecognized sec tion and content) Team Status: Active Member Role Status Dates Dr. Bay Rodriguez MD Family Provider Active Dr. Joana Yanes MD Primary Care Provider Active Team Status: Active Member Role Status Dates Dr. Joana Yanes MD Primary Care Provider Active Dr. Aki Martini MD Attending Provider Active Dr. Colin Ewing MD Referring Provider Active Team Status: Inactive Member Role Status Dates Dr. Joana Yanes MD Primary Care Pro vider, Attending Provider, Referring Provider Active Team Status: Active Member Role Status Dates Dr. Joana Yanes MD Primary Care Provider Active Dr. Aki Martini MD Attending Provider Active Team Status: Inactive Member Role Status Dates Dr. Joana Yanes MD Primary Care Provider Active Dr. Colin Ewing MD Attending Provider, Referring P homar Active Team Status: Active Member Role Status Dates Dr. Joana Yanes MD Primary Care Provider, Referri ng Provider Active Dr. Aki Martini MD Attending Provider Active Team Status: Active Member Role Status Dates Dr. Joana Yanes MD Primary Care Pro vider, Attending Provider, Referring Provider Active Team Status: Active Member Role Status Dates Dr. Joana Yanes MD Primary Care Provider Active Team Status: Inactive Member Role Status Dates Dr. Joana Yanes MD Primary Care Provider Active Start: July 19, 2024 End: July 19, 2024 Dr. Joana Yanes MD Attending Provider Active Start: July 19, 2024 End: July 19, 2024 Dr. Joana Yanes MD Referring Provider Active Start: July 19, 2024 End: July 19, 2024 Team Status: Inactive Member Role Status Dates Dr. Joana Yanes MD Primary Care Provider Active Start: August 08, 2024 End: August 09, 2024 Dr. Colin Ewing MD Admit Provider Active Sta rt: August 08, 2024 End: August 09, 2024 Dr. Colin Ewing MD Attending Provider Active Start: August 08, 2024 End: August 09, 2024 Dr. Colin Ewing MD Referring Provider Active Start: August 08, 2024 End: August 09, 2024 Dr. Nell Hamilton MD Other Provider Active Star t: August 08, 2024 End: August 09, 2024 Dr. Jacoby Brady MD Other Provider Active Start: August 08, 2024 End: August 09, 2024 Dr. Lian Montes MD Other Provider Active St art: August 08, 2024 End: August 09, 2024 Team Status: Active Member Role Status Dates Dr. Joana Yanes MD Primary Care Provider Active Start: August 08, 2024 Dr. Colin Ewing MD Admit Provider Active Sta rt: August 08, 2024 Dr. Colin Ewing MD Referring Provider Active Start: August 08, 2024 Dr. Colni Ewing MD Other Provider Active Sta rt: August 08, 2024 Dr. Hernan Baxter DO Other Provider Active Start: August 08, 2024 Dr. Nell Hamilton MD Other Provider Active Star t: August 08, 2024 Dr. Jacoby Brady MD Other Provider Active Start: August 08, 2024 Dr. Thelma Goel MD Attending Provider Active Start: August 08, 2024 Team Status: Active Member Role Status Dates Dr. Joana Yanes MD Primary Care Provider Active Start: August 09, 2024 Dr. Colin Ewing MD Admit Provider Active Sta rt: August 09, 2024 Dr. Colin Ewing MD Other Provider Active Sta rt: August 09, 2024 Dr. Nell Hamilton MD Other Provider Active Star t: August 09, 2024 Dr. Jacoby Brady MD Other Provider Active Start: August 09, 2024 Dr. Lian Montes MD Attending Provider Active Start: August 09, 2024 Dr. Lian Montes MD Other Provider Active St art: August 09, 2024 Team Status: Inactive Member Role Status Dates Dr. Joana Yanes MD Primary Care Provider Active Start: November 06, 2024 End: November 06, 2024 Dr. Joana Yanes MD Referring Provider Active Start: November 06, 2024 End: November 06, 2024 Lester Mckeon VISITOR SERVICES TECHNICIAN, VISITOR SERVICES TECHNICIAN-C Attending Provider Active S tart: November 06, 2024 End: November 06, 2024 Team Status: Inactive Member Role Status Dates Dr. Joana Yanes MD Primary Care Provider Active Start: November 09, 2024 End: November 10, 2024 Dr. Orville Herbert DO Emergency Provider Active Start: November 09, 2024 End: November 10, 2024 Team Status: Inactive Member Role Status Dates Dr. Joana Yanes MD Primary Care Provider Active Start: November 09, 2024 End: November 10, 2024 Dr. Orville Herbert DO Attending Provider Active Start: November 09, 2024 End: November 10, 2024 Dr. Orville Herbert DO Emergency Provider Active Start: November 09, 2024 End: November 10, 2024 Team Status: Inactive Member Role Status Dates Dr. Joana Yanes MD Primary Care Provider Active Start: December 29, 2024 End: December 29, 2024 Dr. Joana Yanes MD Attending Provider Active Start: December 29, 2024 End: December 29, 2024 Dr. Joana Yanes MD Referring Provider Active Start: December 29, 2024 End: December 29, 2024 Team Status: Inactive Member Role Status Dates Dr. Joana Yanes MD Primary Care Provider Active Start: January 17, 2025 End: January 17, 2025 Dr. Joana Yanes MD Attending Provider Active Start: January 17, 2025 End: January 17, 2025 Dr. Joana Yanes MD Referring Provider Active Start: January 17, 2025 End: January 17, 2025 FOR RECORDS PERTAINING TO PATIENTS WHO ARE OR HAVE BEEN ENROLLED IN A CHEMICAL DEPENDENCY/SUBSTANCEABUSE PROGRAM, SOME INFORMATION MAY BE OMITTED. This clinical summary was aggregated from multiple sources. Caution should be exercised in using it in the provision of clinical care. This summary normalizes information from multiple sources, and as a consequence, information in this document may materially change the coding, format and clinical context of patient data. In addition, data may be omitted in some cases. CLINICAL DECISIONS SHOULD BE BASED ON THE PRIMARY CLINICAL RECORDS. [facility] [employer], [facility]. provides no warranty or guarantee of the accuracy or completeness of information in this document.
[2025-01-20 08:21] LABS: Absolute Lymphocyte Count 2.07 X10^3/uL (0.83-4.51); Absolute Neutrophil Count 5.1 X10^3/uL (2.0-7.7); Basophil# 0.07 X10^3/uL; Basophil% 0.8 % (0-1); Eosinophil# 0.25 X10^3/uL; Hematocrit 44.5 % (40-54); Hemoglobin 15.1 g/dL (13.0-16.5); Lymphocyte # 2.07 X10^3/ul (0.83-4.51); Lymphocyte % 24.6 % (19-41); Mean Corp Hgb Conc 33.9 g/dL (32-36); Mean Corpuscular Hgb 31.5 pg (27.0-32.0); Mean Corpuscular Volume 92.7 fL (80-94); Mean Platelet Vol. 9.6 fl (6.2-12.0); Monocyte# 0.84 X10^3/uL; NRBC Flagged by Analyzer 0 % (0-5); Neutrophil # 5.09 X10^3/uL (2.7-7.7); Neutrophil % 60.6 % (47-70); Platelet Count 339 K/mm3 (150-450); RBC Distribution Width CV 13.2 % (11.6-14.6); White Blood Count 8.4 K/mm3 (4.4-11.0)
[2025-01-20 09:01] LABS: ALB/GLOB Ratio 1.6 RATIO (0.9-2.4); AST(SGOT) 24 U/L (<=37); Alanine Aminotransfer ALT/SGPT 26 U/L (<=46); Albumin, Serum 4.3 g/dL (3.5-5.0); Alkaline Phosphatase 80 U/L (40-129); Anion Gap 10 (5-15); BUN 19 mg/dL (4-19); BUN/Creat Ratio 20.8 RATIO (10-20); Calcium,Total 9.1 mg/dL (7.6-11.0); Carbon Dioxide 25.9 mmol/L (21.0-32.0); Chloride 103 mmol/L (98-108); EST Glomerular Filtration Rate 102 (>60); Globulin 2.7 g/dL (2.2-4.2); Glucose 116 mg/dL (70-99); Potassium 4.1 mmol/L (3.3-5.1); Sodium Level 139 mmol/L (133-145); Total Bilirubin 0.51 mg/dL (0.00-1.30)
[2025-01-20 09:40] LABS: Cholesterol 233 mg/dL (<=200); High Density Lipoprotein 41 mg/dL; Low Density Lipoprotein Calc. 170 mg/dL; Triglycerides 107 mg/dL; Very Low Density Lipoprotein 21 mg/dL (5-40); cholesterol:hdl ratio screen 5.66
[2025-01-20 09:42] LABS: Rheumatoid Factor < 10.0 IU/mL (<15)
[2025-01-22 14:07] LABS: CCP IgG Antibodies 5 units (0-19)
[2025-01-23 14:09] LABS: ANTINUCLEAR ANTIBODIES DIRECT Negative (Negative)
== END | disposition home or self-care (01) ==
LOC: LAB 07:22
PROVIDERS: PCP Internal Medicine; Referring Provider Internal Medicine; Visit Provider Internal Medicine
DX: M25.50 Pain in unspecified joint (principal); I10 Essential (primary) hypertension; E78.2 Mixed hyperlipidemia
CPT/HCPCS: 36415; 80053; 80061; 85025; 86038; 86200; 86225; 86431